=== PATIENT | female | born 1970 | race Caucasian/White ===

== ENCOUNTER 2020-02-17 19:15 | Inpatient (IN) | payer MEDICAID ==
[~2020-02-17] VITALS: Ht 172.7 cm; Wt 89.9 kg
[2020-02-17 20:01] LABS: GLUCOSE,POINT OF CARE 355 MG/DL (70-110)
[2020-02-17] MEDS ORDERED: ARIP10TA8 PO (20:01)
[2020-02-17] MEDS ORDERED: PROZ10 PO (20:01)
[2020-02-17 22:00] LABS: BASOPHILS % (AUTO) 0.3 % (0.0-2.0); EOSINOPHILS % (AUTO) 1.3 % (1.0-6.0); HEMATOCRIT 40.8 % (36-46); LYMPHOCYTES # (AUTO) 1.4 K/uL (1.0-4.8); LYMPHOCYTES % (AUTO) 17.8 % (22.0-44.0); MEAN CORPUSCULAR HEMOGLOBIN 25.4 pg (26.0-34.0); MEAN CORPUSCULAR HGB CONC 31.9 G/dL (31.0-37.0); MEAN CORPUSCULAR VOLUME 80 fL (80-100); MONOCYTES # (AUTO) 0.5 K/uL (0.1-1.0); MONOCYTES % (AUTO) 6.1 % (2.0-9.0); NEUTROPHILS # (AUTO) 5.9 K/uL (1.8-7.7); NEUTROPHILS % (AUTO) 74.5 % (40.0-70.0); PLATELET COUNT (AUTO) 234 K/uL (150-450); RED BLOOD CELL COUNT(AUTO) 5.13 MIL/uL (4.00-5.20); RED CELL DISTRIBUTION WIDTH 14.7 % (11.5-14.5)
[2020-02-17 22:01] LABS: AMPHET/METH SCREEN,URINE POSITIVE (NEGATIVE); BARBITURATE SCREEN, URINE NEGATIVE (NEGATIVE); BENZODIAZEPINES SCREEN,URINE NEGATIVE (NEGATIVE); CANNABINOID SCREEN,URINE NEGATIVE (NEGATIVE); COCAINE SCREEN,URINE NEGATIVE (NEGATIVE); METHADONE SCREEN, URINE NEGATIVE (NEGATIVE); OPIATE SCREEN,URINE NEGATIVE (NEGATIVE)
[2020-02-17 22:01] LABS: COVID AG,FIA SOURCE NASAL SWAB
[2020-02-17 22:10] LABS: PHENCYCLIDINE SCREEN,URINE NEGATIVE (NEGATIVE)
[2020-02-17 22:23] LABS: ALANINE AMINOTRANSFERASE 29 U/L (12-78); ALBUMIN 3.3 g/dL (3.4-5.0); ALKALINE PHOSPHATASE 84 U/L (46-116); ANION GAP 8 mmol/L (8-16); ASPARTATE AMINOTRANSFERASE 14 U/L (15-37); BILIRUBIN,TOTAL 0.3 mg/dL (0.1-1.0); CALCIUM, TOTAL 8.9 mg/dL (8.8-10.5); CARBON DIOXIDE 28 mmol/L (22-29); CHLORIDE 97 mmol/L (98-107); CREATININE 0.74 mg/dL (0.60-1.30); GLOMERULAR FILTR. RATE CALC > 60 mL/min (>60); GLUCOSE,RANDOM 319 mg/dL (70-110); SODIUM SERUM 133 mmol/L (136-145); TOTAL PROTEIN, SERUM 6.6 g/dL (6.4-8.2); UREA NITROGEN, BLOOD 10 mg/dL (7-18)
[2020-02-17 22:28] LABS: POTASSIUM 2.9 mmol/L (3.5-5.1)
[2020-02-17] MEDS ORDERED: POTASSIUM CHLORIDE 10% 40 MEQ/30 ML LIQUID UDCUP PO ONE ×2 (22:30→22:55)
[2020-02-17] MEDS ORDERED: INSULIN REGULAR, HUMAN 100 UNITS/ML SQ ONE (22:30)
[2020-02-17] MEDS ORDERED: ZOLPIDEM TARTRATE 10 MG TABLET PO PRN (23:00)
[2020-02-17] MEDS ORDERED: OLANZapine 5 MG RAPDIS TABLET PO PRN (23:00)
[2020-02-17] MEDS ORDERED: LORazepam 2 MG TABLET PO PRN (23:00)
[2020-02-18] MEDS ORDERED: ACETAMINOPHEN 325 MG TABLET PO PRN (07:45)
[2020-02-18] MEDS ORDERED: ALBUTEROL SULFATE HFA 90 MCG/PUFF 8 GM INHALER IH PRN (07:45)
[2020-02-18] MEDS ORDERED: MAG HYDROX/AL HYDROX/SIMETH ES 30 ML SUSPENSION UDCUP PO PRN (07:45)
[2020-02-18] MEDS ORDERED: MAGNESIUM HYDROXIDE SUSPENSION 30 ML UDCUP PO PRN (07:45)
[2020-02-18] MEDS ORDERED: LOPERAMIDE HCL 2 MG CAPSULE PO PRN (07:45)
[2020-02-18] MEDS ORDERED: DOCUSATE SODIUM 100 MG CAPSULE PO PRN (07:45)
[2020-02-18] MEDS ORDERED: BENZOCAINE/MENTHOL LOZENGE PO PRN (07:45)
[2020-02-18] MEDS ORDERED: PETROLATUM,WHITE 28 GM JELLY TP PRN (07:45)
[2020-02-18] MEDS ORDERED: CloNIDine HCL 0.1 MG TABLET PO PRN (07:45)
[2020-02-18] MEDS ORDERED: OMEPRAZOLE 20 MG CAPSULE PO PRN (07:45)
[2020-02-18] MEDS ORDERED: IBUPROFEN 600 MG TABLET PO PRN (07:45)
[2020-02-18] MEDS ORDERED: BACITRACIN 28 GM OINTMENT TP PRN (07:45)
[2020-02-18] MEDS ORDERED: GLUCAGON,HUMAN RECOMBINANT 1 MG VIAL IM PRN (07:45)
[2020-02-18] MEDS: LISINOPRIL 20 MG TABLET PO SCH (09:37)
[2020-02-18] MEDS: ATORVASTATIN CALCIUM 20 MG TABLET PO SCH (09:37)
[2020-02-18 09:42] VITALS: BP 116/75
[2020-02-18] MEDS: INSULIN LISPRO 100 UNITS/ML SQ PRN ×3 (11:12→21:10)
[2020-02-18 11:27] LABS: GLUCOMETER DEV NAME(LOC) BV2S.; GLUCOSE,POINT OF CARE 289 MG/DL (70-110)
[2020-02-18] MEDS: ONDANSETRON HCL 4 MG TABLET PO PRN (12:20)
[2020-02-18] MEDS ORDERED: INFLUENZA VIRUS VACCINE QVS 2020-21 (6MO+)/PF 60 MCG/0.5 ML SYRINGE IM ONE (13:15)
[2020-02-18 16:35] VITALS: BP 112/56
[2020-02-18 16:39] LABS: GLUCOMETER DEV NAME(LOC) BV2S.; GLUCOSE,POINT OF CARE 245 MG/DL (70-110)
[2020-02-18] MEDS ORDERED: HydrOXYzine PAMOATE 50 MG CAPSULE PO PRN ×2 (16:45)
[2020-02-18] MEDS ORDERED: GuaiFENesin/D-METHORPHAN [SUGAR-FREE] 200-20MG/10 ML SYRUP UDCUP PO PRN ×2 (16:45)
[2020-02-18] MEDS: MetFORMIN HCL 500 MG TABLET PO SCH (16:49)
[2020-02-18] MEDS ORDERED: THIAMINE 100 MG TABLET PO SCH (17:00)
[2020-02-18] MEDS: THIAMINE 100 MG TABLET PO SCH (17:15)
[2020-02-18 22:06] LABS: GLUCOMETER DEV NAME(LOC) BV2S.; GLUCOSE,POINT OF CARE 268 MG/DL (70-110)
[2020-02-19 06:10] LABS: GLUCOMETER DEV NAME(LOC) BV2S.; GLUCOSE,POINT OF CARE 297 MG/DL (70-110)
[2020-02-19 06:12] VITALS: BP 120/81
[2020-02-19] MEDS: MetFORMIN HCL 500 MG TABLET PO SCH ×2 (06:41→17:00)
[2020-02-19] MEDS: INSULIN LISPRO 100 UNITS/ML SQ PRN ×4 (06:43→20:30)
[2020-02-19 08:13] VITALS: BP 112/72
[2020-02-19 08:50] LABS: HEMOGLOBIN A1C 12.6 % (3.8-5.6)
[2020-02-19] MEDS ORDERED: MULTIVITAMINS WITH MINERALS, THERAPEUTIC TABLET PO SCH (09:00)
[2020-02-19] MEDS: FOLIC ACID 1 MG TABLET PO SCH (09:00)
[2020-02-19] MEDS: FLUoxetine HCL 20 MG CAPSULE PO SCH (09:00)
[2020-02-19] MEDS: NALTREXONE HCL 50 MG TABLET PO SCH (09:00)
[2020-02-19] MEDS: LISINOPRIL 20 MG TABLET PO SCH (09:00)
[2020-02-19] MEDS: ARIPiprazole 15 MG TABLET PO SCH (09:00)
[2020-02-19] MEDS: THIAMINE 100 MG TABLET PO SCH ×2 (09:00→17:00)
[2020-02-19] MEDS: ATORVASTATIN CALCIUM 20 MG TABLET PO SCH (09:00)
[2020-02-19] MEDS: NICOTINE 21 MG/24 HOUR PATCH TD SCH (09:00)
[2020-02-19] MEDS: MULTIVITAMINS WITH MINERALS, THERAPEUTIC TABLET PO SCH (09:00)
[2020-02-19] MEDS: OMEGA-3/DHA/EPA/FISH OIL 1,000 MG CAPSULE PO SCH (09:00)
[2020-02-19] MEDS ORDERED: FOLIC ACID 1 MG TABLET PO SCH (09:00)
[2020-02-19 09:12] LABS: CHOL/HDL RATIO 3.1 (3.9-5.7); FREE T4 (FREE THYROXINE) 1.35 ng/dL (0.76-1.46); THYROID STIMULATING HORMONE 1.44 uIU/mL (0.36-3.74)
[2020-02-19 09:17] LABS: POTASSIUM 2.9 mmol/L (3.5-5.1)
[2020-02-19] MEDS: POTASSIUM CHLORIDE 20 MEQ ER TABLET PO SCH ×3 (11:11→17:15)
[2020-02-19] MEDS ORDERED: LOPERAMIDE HCL 2 MG CAPSULE PO PRN (11:30)
[2020-02-19] MEDS ORDERED: ARIPiprazole ER SUSPENSION 400 MG PRE-FILLED DUAL CHAMBER SYRINGE IM ONE (14:45)
[2020-02-19 16:07] LABS: GLUCOMETER DEV NAME(LOC) BV2S.; GLUCOSE,POINT OF CARE 318 MG/DL (70-110)
[2020-02-19 16:58] LABS: GLUCOMETER DEV NAME(LOC) BV2S.; GLUCOSE,POINT OF CARE 248 MG/DL (70-110)
[2020-02-19 22:49] LABS: GLUCOMETER DEV NAME(LOC) BV2S.; GLUCOSE,POINT OF CARE 220 MG/DL (70-110)
[2020-02-20] MEDS: POTASSIUM CHLORIDE 20 MEQ ER TABLET PO SCH ×2 (00:26→05:55)
[2020-02-20] MEDS: ONDANSETRON HCL 4 MG TABLET PO PRN (00:26)
[2020-02-20 00:33] VITALS: BP 118/75
[2020-02-20 06:17] LABS: GLUCOMETER DEV NAME(LOC) BV2S.; GLUCOSE,POINT OF CARE 294 MG/DL (70-110)
[2020-02-20] MEDS: MetFORMIN HCL 500 MG TABLET PO SCH ×2 (06:53→16:56)
[2020-02-20] MEDS: INSULIN LISPRO 100 UNITS/ML SQ PRN ×4 (06:56→21:08)
[2020-02-20 08:12] VITALS: BP 112/68
[2020-02-20] MEDS: MULTIVITAMINS WITH MINERALS, THERAPEUTIC TABLET PO SCH (09:00)
[2020-02-20] MEDS: NALTREXONE HCL 50 MG TABLET PO SCH (09:00)
[2020-02-20] MEDS: FOLIC ACID 1 MG TABLET PO SCH (09:00)
[2020-02-20] MEDS: LISINOPRIL 20 MG TABLET PO SCH (09:00)
[2020-02-20] MEDS: NICOTINE 21 MG/24 HOUR PATCH TD SCH (09:00)
[2020-02-20] MEDS: THIAMINE 100 MG TABLET PO SCH ×2 (09:00→16:57)
[2020-02-20] MEDS: OMEGA-3/DHA/EPA/FISH OIL 1,000 MG CAPSULE PO SCH (09:00)
[2020-02-20] MEDS: FLUoxetine HCL 20 MG CAPSULE PO SCH (09:00)
[2020-02-20] MEDS: ARIPiprazole 15 MG TABLET PO SCH (09:00)
[2020-02-20] MEDS: ATORVASTATIN CALCIUM 20 MG TABLET PO SCH (10:21)
[2020-02-20 11:44] LABS: GLUCOMETER DEV NAME(LOC) BV2S.; GLUCOSE,POINT OF CARE 287 MG/DL (70-110)
[2020-02-20 16:21] VITALS: BP 112/67
[2020-02-20 16:58] LABS: GLUCOMETER DEV NAME(LOC) BV2S.; GLUCOSE,POINT OF CARE 279 MG/DL (70-110)
[2020-02-20 20:06] LABS: GLUCOMETER DEV NAME(LOC) BV2S.; GLUCOSE,POINT OF CARE 265 MG/DL (70-110)
[2020-02-21 00:54] VITALS: BP 121/72
[2020-02-21] MEDS: MetFORMIN HCL 500 MG TABLET PO SCH ×2 (06:15→16:41)
[2020-02-21] MEDS: INSULIN LISPRO 100 UNITS/ML SQ PRN ×4 (06:18→20:54)
[2020-02-21 06:27] LABS: GLUCOMETER DEV NAME(LOC) BV2S.; GLUCOSE,POINT OF CARE 275 MG/DL (70-110)
[2020-02-21 08:40] VITALS: BP 114/62
[2020-02-21] MEDS: NALTREXONE HCL 50 MG TABLET PO SCH (08:58)
[2020-02-21] MEDS: ARIPiprazole 15 MG TABLET PO SCH (08:58)
[2020-02-21] MEDS: LISINOPRIL 20 MG TABLET PO SCH (08:58)
[2020-02-21] MEDS: FOLIC ACID 1 MG TABLET PO SCH (08:58)
[2020-02-21] MEDS: MULTIVITAMINS WITH MINERALS, THERAPEUTIC TABLET PO SCH (08:58)
[2020-02-21] MEDS: OMEGA-3/DHA/EPA/FISH OIL 1,000 MG CAPSULE PO SCH (08:58)
[2020-02-21] MEDS: ATORVASTATIN CALCIUM 20 MG TABLET PO SCH (08:58)
[2020-02-21] MEDS: THIAMINE 100 MG TABLET PO SCH ×2 (08:59→16:19)
[2020-02-21] MEDS ORDERED: PARoxetine HCL 20 MG TABLET PO SCH (09:00)
[2020-02-21 11:32] LABS: GLUCOMETER DEV NAME(LOC) BV2S.; GLUCOSE,POINT OF CARE 269 MG/DL (70-110)
[2020-02-21 16:10] VITALS: BP 122/72
[2020-02-21 17:32] LABS: GLUCOMETER DEV NAME(LOC) BV2S.; GLUCOSE,POINT OF CARE 303 MG/DL (70-110)
[2020-02-21] MEDS: MIRTAZAPINE 15 MG TABLET PO SCH (20:46)
[2020-02-21 21:26] LABS: GLUCOMETER DEV NAME(LOC) BV2S.; GLUCOSE,POINT OF CARE 187 MG/DL (70-110)
[2020-02-22 06:07] VITALS: BP 119/64
[2020-02-22 06:22] LABS: GLUCOMETER DEV NAME(LOC) BV2S.; GLUCOSE,POINT OF CARE 280 MG/DL (70-110)
[2020-02-22] MEDS: INSULIN LISPRO 100 UNITS/ML SQ PRN ×4 (06:55→20:19)
[2020-02-22] MEDS: MetFORMIN HCL 500 MG TABLET PO SCH ×2 (06:55→16:46)
[2020-02-22] MEDS: MULTIVITAMINS WITH MINERALS, THERAPEUTIC TABLET PO SCH (08:36)
[2020-02-22] MEDS: OMEGA-3/DHA/EPA/FISH OIL 1,000 MG CAPSULE PO SCH (08:36)
[2020-02-22] MEDS: THIAMINE 100 MG TABLET PO SCH ×2 (08:36→16:42)
[2020-02-22] MEDS: FOLIC ACID 1 MG TABLET PO SCH (08:37)
[2020-02-22] MEDS: LISINOPRIL 20 MG TABLET PO SCH (08:37)
[2020-02-22] MEDS: ATORVASTATIN CALCIUM 20 MG TABLET PO SCH (08:37)
[2020-02-22] MEDS: ARIPiprazole 15 MG TABLET PO SCH (08:37)
[2020-02-22] MEDS: NICOTINE 21 MG/24 HOUR PATCH TD SCH (08:37)
[2020-02-22] MEDS: NALTREXONE HCL 50 MG TABLET PO SCH (08:37)
[2020-02-22 09:50] VITALS: BP 106/69
[2020-02-22 13:46] LABS: GLUCOMETER DEV NAME(LOC) BV2S.; GLUCOSE,POINT OF CARE 300 MG/DL (70-110)
[2020-02-22 16:19] VITALS: BP 121/60
[2020-02-22 17:06] LABS: GLUCOMETER DEV NAME(LOC) BV2S.; GLUCOSE,POINT OF CARE 282 MG/DL (70-110)
[2020-02-22] MEDS: MIRTAZAPINE 15 MG TABLET PO SCH (20:14)
[2020-02-22 22:15] LABS: GLUCOMETER DEV NAME(LOC) BV2S.; GLUCOSE,POINT OF CARE 179 MG/DL (70-110)
[2020-02-23 02:06] VITALS: BP 105/52
[2020-02-23 06:15] LABS: GLUCOMETER DEV NAME(LOC) BV2S.; GLUCOSE,POINT OF CARE 249 MG/DL (70-110)
[2020-02-23] MEDS: MetFORMIN HCL 500 MG TABLET PO SCH ×2 (06:52→16:44)
[2020-02-23] MEDS: INSULIN LISPRO 100 UNITS/ML SQ PRN ×4 (06:53→20:35)
[2020-02-23 08:17] VITALS: BP 120/77
[2020-02-23] MEDS: ATORVASTATIN CALCIUM 20 MG TABLET PO SCH (09:32)
[2020-02-23] MEDS: LISINOPRIL 20 MG TABLET PO SCH (09:32)
[2020-02-23] MEDS: ARIPiprazole 15 MG TABLET PO SCH (09:32)
[2020-02-23] MEDS: FOLIC ACID 1 MG TABLET PO SCH (09:32)
[2020-02-23] MEDS: MULTIVITAMINS WITH MINERALS, THERAPEUTIC TABLET PO SCH (09:32)
[2020-02-23] MEDS: OMEGA-3/DHA/EPA/FISH OIL 1,000 MG CAPSULE PO SCH (09:32)
[2020-02-23] MEDS: THIAMINE 100 MG TABLET PO SCH ×2 (09:32→16:44)
[2020-02-23] MEDS: NALTREXONE HCL 50 MG TABLET PO SCH (09:33)
[2020-02-23] MEDS: NICOTINE 21 MG/24 HOUR PATCH TD SCH (09:33)
[2020-02-23 11:49] LABS: GLUCOMETER DEV NAME(LOC) BV2S.; GLUCOSE,POINT OF CARE 313 MG/DL (70-110)
[2020-02-23 16:11] VITALS: BP 116/63
[2020-02-23 17:34] LABS: GLUCOMETER DEV NAME(LOC) BV2S.; GLUCOSE,POINT OF CARE 263 MG/DL (70-110)
[2020-02-23] MEDS: MIRTAZAPINE 15 MG TABLET PO SCH (20:22)
[2020-02-23 20:32] LABS: GLUCOMETER DEV NAME(LOC) BV2S.; GLUCOSE,POINT OF CARE 248 MG/DL (70-110)
[2020-02-24 06:05] LABS: GLUCOMETER DEV NAME(LOC) BV2S.; GLUCOSE,POINT OF CARE 257 MG/DL (70-110)
[2020-02-24 06:10] VITALS: BP 120/70
[2020-02-24] MEDS: MetFORMIN HCL 500 MG TABLET PO SCH (06:39)
[2020-02-24] MEDS: INSULIN LISPRO 100 UNITS/ML SQ PRN ×2 (06:40→11:30)
[2020-02-24 07:43] VITALS: BP 118/70
[2020-02-24] MEDS: OMEGA-3/DHA/EPA/FISH OIL 1,000 MG CAPSULE PO SCH (08:33)
[2020-02-24] MEDS: ATORVASTATIN CALCIUM 20 MG TABLET PO SCH (08:33)
[2020-02-24] MEDS: FOLIC ACID 1 MG TABLET PO SCH (08:34)
[2020-02-24] MEDS: ARIPiprazole 15 MG TABLET PO SCH (08:34)
[2020-02-24] MEDS: NALTREXONE HCL 50 MG TABLET PO SCH (08:34)
[2020-02-24] MEDS: LISINOPRIL 20 MG TABLET PO SCH (08:34)
[2020-02-24] MEDS: THIAMINE 100 MG TABLET PO SCH (08:34)
[2020-02-24] MEDS: MULTIVITAMINS WITH MINERALS, THERAPEUTIC TABLET PO SCH (08:34)
[2020-02-24] MEDS ORDERED: INSULIN GLARGINE,HUM.REC.ANLOG 100 UNITS/ML SQ SCH (09:00)
[2020-02-24] MEDS: NICOTINE 21 MG/24 HOUR PATCH TD SCH (09:11)
[2020-02-24 09:41] LABS: GLUCOMETER DEV NAME(LOC) BV2S.; GLUCOSE,POINT OF CARE 244 MG/DL (70-110)
[2020-02-24 11:43] LABS: GLUCOMETER DEV NAME(LOC) BV2S.; GLUCOSE,POINT OF CARE 294 MG/DL (70-110)
[2020-02-24] MEDS ORDERED: METF-960 PO (13:12)
[2020-02-24] MEDS ORDERED: LISI-662 PO (13:12)
[2020-02-24] MEDS ORDERED: INSLAN SQ (13:12)
[2020-02-24] MEDS ORDERED: ATOR20TA86 PO (13:12)
[2020-02-24] MEDS ORDERED: ARIP400S3 IM (13:32)
[2020-02-24] MEDS ORDERED: ARIP15TA2 PO (13:32)
[2020-02-24] MEDS ORDERED: MIRT-89 PO (13:32)
[2020-02-24] MEDS ORDERED: NALT50TA PO (13:32)
[2020-02-24] MEDS ORDERED: OMEG-135 PO (13:32)
[2020-03-18] MEDS ORDERED: ARIPiprazole ER SUSPENSION 400 MG PRE-FILLED DUAL CHAMBER SYRINGE IM SCH (09:00)
== END 2020-02-24 14:44 | disposition home or self-care (01) | DRG 750 ==
LOC: EMS 19:15 → UNDOADMIN 22:53 → B2S 22:53
PROVIDERS: ADMIT Psychiatry & Neurology Psychiatry; ATTEND Psychiatry & Neurology Psychiatry
DX: F25.9 Schizoaffective disorder, unspecified (principal); R45.851 Suicidal ideations; J44.9 Chronic obstructive pulmonary disease, unspecified; I10 Essential (primary) hypertension; Z79.899 Other long term (current) drug therapy; E11.65 Type 2 diabetes mellitus with hyperglycemia; E78.5 Hyperlipidemia, unspecified; E87.6 Hypokalemia; F15.10 Other stimulant abuse, uncomplicated; Z91.14 Patient's other noncompliance with medication regimen; Z91.19 Patient's noncompliance with other medical treatment and regimen; K59.00 Constipation, unspecified; Z23 Encounter for immunization; E78.00 Pure hypercholesterolemia, unspecified; F41.9 Anxiety disorder, unspecified
CPT/HCPCS: 83036; 84132; 84439; 84443; 87426; 90686; G0480; J0401; J1815; Q0162

== ENCOUNTER 2020-03-17 11:16 | Inpatient (IN) | payer MEDICAID ==
[~2020-03-17] VITALS: Ht 172.7 cm; Wt 85.8 kg
[~2020-03-17 11:16] MED LIST: ARIP15TA2 PO; ARIP400S3 IM; ATOR20TA86 PO; INSLAN SQ; LISI-662 PO; METF-960 PO; MIRT-89 PO; NALT50TA PO; OMEG-135 PO
[2020-03-17 13:17] LABS: COVID AG,FIA SOURCE NASOPHARYNGEAL
[2020-03-17 13:27] LABS: BASOPHILS % (AUTO) 0.3 % (0.0-2.0); EOSINOPHILS % (AUTO) 1.1 % (1.0-6.0); HEMATOCRIT 44.8 % (36-46); HEMOGLOBIN 14.4 g/dL (12.0-16.0); MEAN CORPUSCULAR HEMOGLOBIN 25.9 pg (26.0-34.0); MEAN CORPUSCULAR HGB CONC 32.3 G/dL (31.0-37.0); MEAN CORPUSCULAR VOLUME 80 fL (80-100); MONOCYTES # (AUTO) 0.6 K/uL (0.1-1.0); MONOCYTES % (AUTO) 4.4 % (2.0-9.0); NEUTROPHILS # (AUTO) 8.9 K/uL (1.8-7.7); NEUTROPHILS % (AUTO) 70.2 % (40.0-70.0); PLATELET COUNT (AUTO) 248 K/uL (150-450); RED BLOOD CELL COUNT(AUTO) 5.59 MIL/uL (4.00-5.20); RED CELL DISTRIBUTION WIDTH 15.5 % (11.5-14.5)
[2020-03-17 13:30] LABS: ANION GAP 10 mmol/L (8-16); CALCIUM, TOTAL 9.8 mg/dL (8.8-10.5); CARBON DIOXIDE 26 mmol/L (22-29); CHLORIDE 99 mmol/L (98-107); CREATININE 0.57 mg/dL (0.60-1.30); GLOMERULAR FILTR. RATE CALC > 60 mL/min (>60); GLUCOSE,RANDOM 345 mg/dL (70-110); POTASSIUM 3.8 mmol/L (3.5-5.1); SODIUM SERUM 135 mmol/L (136-145); UREA NITROGEN, BLOOD 8 mg/dL (7-18)
[2020-03-17 13:36] LABS: ALANINE AMINOTRANSFERASE 52 U/L (12-78); ALBUMIN 3.9 g/dL (3.4-5.0); ALKALINE PHOSPHATASE 109 U/L (46-116); ASPARTATE AMINOTRANSFERASE 26 U/L (15-37); BILIRUBIN,TOTAL 0.5 mg/dL (0.1-1.0); TOTAL PROTEIN, SERUM 7.9 g/dL (6.4-8.2)
[2020-03-17 14:39] LABS: AMPHET/METH SCREEN,URINE POSITIVE (NEGATIVE); BARBITURATE SCREEN, URINE NEGATIVE (NEGATIVE); BENZODIAZEPINES SCREEN,URINE NEGATIVE (NEGATIVE); CANNABINOID SCREEN,URINE NEGATIVE (NEGATIVE); COCAINE SCREEN,URINE NEGATIVE (NEGATIVE); METHADONE SCREEN, URINE NEGATIVE (NEGATIVE); OPIATE SCREEN,URINE NEGATIVE (NEGATIVE)
[2020-03-17 14:41] LABS: PHENCYCLIDINE SCREEN,URINE NEGATIVE (NEGATIVE)
[2020-03-17] MEDS ORDERED: QUEtiapine FUMARATE 100 MG TABLET PO PRN (15:45)
[2020-03-17] MEDS ORDERED: LOPERAMIDE HCL 2 MG CAPSULE PO PRN (15:45)
[2020-03-17] MEDS ORDERED: HydrOXYzine PAMOATE 50 MG CAPSULE PO PRN (15:45)
[2020-03-17] MEDS ORDERED: PROMETHAZINE HCL 25 MG TABLET PO PRN (15:45)
[2020-03-17] MEDS ORDERED: ARIPiprazole ER SUSPENSION 400 MG PRE-FILLED DUAL CHAMBER SYRINGE IM ONE (15:45)
[2020-03-17] MEDS ORDERED: MAG HYDROX/AL HYDROX/SIMETH ES 30 ML SUSPENSION UDCUP PO PRN (15:45)
[2020-03-17] MEDS ORDERED: LORazepam 2 MG TABLET PO PRN (15:45)
[2020-03-17] MEDS ORDERED: GuaiFENesin/D-METHORPHAN [SUGAR-FREE] 200-20MG/10 ML SYRUP UDCUP PO PRN (15:45)
[2020-03-17] MEDS ORDERED: ACETAMINOPHEN 325 MG TABLET PO PRN (15:45)
[2020-03-17] MEDS ORDERED: MAGNESIUM HYDROXIDE SUSPENSION 30 ML UDCUP PO PRN (15:45)
[2020-03-17] MEDS ORDERED: ZOLPIDEM TARTRATE 10 MG TABLET PO PRN (15:45)
[2020-03-17 19:26] LABS: GLUCOSE,POINT OF CARE 353 MG/DL (70-110)
[2020-03-17] MEDS ORDERED: GLUCAGON,HUMAN RECOMBINANT 1 MG VIAL IM PRN (19:45)
[2020-03-17] MEDS: INSULIN LISPRO 100 UNITS/ML SQ PRN (19:48)
[2020-03-17 20:51] LABS: GLUCOSE,POINT OF CARE 309 MG/DL (70-110)
[2020-03-17] MEDS ORDERED: MIRTAZAPINE 15 MG TABLET PO SCH (21:00)
[2020-03-17 21:19] VITALS: BP 110/79
[2020-03-17 21:41] LABS: GLUCOMETER DEV NAME(LOC) BV2S.; GLUCOSE,POINT OF CARE 207 MG/DL (70-110)
[2020-03-17] MEDS: THIAMINE 100 MG TABLET PO SCH (21:41)
[2020-03-18 01:08] VITALS: BP 103/59
[2020-03-18] MEDS ORDERED: INFLUENZA VIRUS VACCINE QVS 2020-21 (6MO+)/PF 60 MCG/0.5 ML SYRINGE IM ONE (01:30)
[2020-03-18 07:04] LABS: GLUCOMETER DEV NAME(LOC) BV2S.; GLUCOSE,POINT OF CARE 263 MG/DL (70-110)
[2020-03-18] MEDS: INSULIN LISPRO 100 UNITS/ML SQ PRN ×4 (07:15→20:25)
[2020-03-18] MEDS ORDERED: PNEUMOCOCCAL VACCINE POLYVALENT 0.5 ML VIAL [PPSV23] IM ONE (07:45)
[2020-03-18 08:10] VITALS: BP 126/71
[2020-03-18] MEDS: OMEGA-3/DHA/EPA/FISH OIL 1,000 MG CAPSULE PO SCH (08:53)
[2020-03-18] MEDS: MULTIVITAMINS WITH MINERALS, THERAPEUTIC TABLET PO SCH (08:53)
[2020-03-18] MEDS: NALTREXONE HCL 50 MG TABLET PO SCH (08:53)
[2020-03-18] MEDS: FOLIC ACID 1 MG TABLET PO SCH (08:54)
[2020-03-18] MEDS: THIAMINE 100 MG TABLET PO SCH ×2 (08:54→17:00)
[2020-03-18] MEDS ORDERED: PARoxetine HCL 10 MG TABLET PO SCH (09:00)
[2020-03-18 09:02] LABS: CHOL/HDL RATIO 3.3 (3.9-5.7); FREE T4 (FREE THYROXINE) 1.2 ng/dL (0.76-1.46); THYROID STIMULATING HORMONE 0.55 uIU/mL (0.36-3.74)
[2020-03-18 10:18] LABS: HEMOGLOBIN A1C 12.5 % (3.8-5.6)
[2020-03-18 11:15] LABS: GLUCOMETER DEV NAME(LOC) BV2S.; GLUCOSE,POINT OF CARE 375 MG/DL (70-110)
[2020-03-18 16:07] VITALS: BP 102/66
[2020-03-18 16:48] LABS: GLUCOMETER DEV NAME(LOC) BV2S.; GLUCOSE,POINT OF CARE 277 MG/DL (70-110)
[2020-03-18] MEDS: MetFORMIN HCL 500 MG TABLET PO SCH (17:00)
[2020-03-18] MEDS: MIRTAZAPINE 15 MG TABLET PO SCH (20:17)
[2020-03-18 20:51] LABS: GLUCOMETER DEV NAME(LOC) BV2S.; GLUCOSE,POINT OF CARE 307 MG/DL (70-110)
[2020-03-18] MEDS: INSULIN GLARGINE,HUM.REC.ANLOG 100 UNITS/ML SQ SCH (21:40)
[2020-03-19 00:28] VITALS: BP 84/40
[2020-03-19 00:33] VITALS: BP 98/62
[2020-03-19] MEDS: INSULIN LISPRO 100 UNITS/ML SQ PRN ×4 (06:50→20:28)
[2020-03-19] MEDS: MetFORMIN HCL 500 MG TABLET PO SCH ×2 (07:10→16:59)
[2020-03-19 07:30] LABS: GLUCOMETER DEV NAME(LOC) BV2S.; GLUCOSE,POINT OF CARE 320 MG/DL (70-110)
[2020-03-19 08:16] VITALS: BP 122/60
[2020-03-19] MEDS: ATORVASTATIN CALCIUM 20 MG TABLET PO SCH (08:17)
[2020-03-19] MEDS: OMEGA-3/DHA/EPA/FISH OIL 1,000 MG CAPSULE PO SCH (08:17)
[2020-03-19] MEDS: NALTREXONE HCL 50 MG TABLET PO SCH (08:17)
[2020-03-19] MEDS: FOLIC ACID 1 MG TABLET PO SCH (08:17)
[2020-03-19] MEDS: MULTIVITAMINS WITH MINERALS, THERAPEUTIC TABLET PO SCH (08:17)
[2020-03-19] MEDS: THIAMINE 100 MG TABLET PO SCH ×2 (08:17→16:59)
[2020-03-19] MEDS: INSULIN GLARGINE,HUM.REC.ANLOG 100 UNITS/ML SQ SCH ×2 (08:22→20:28)
[2020-03-19] MEDS ORDERED: OMEGA-3/DHA/EPA/FISH OIL 1,000 MG CAPSULE PO SCH (09:00)
[2020-03-19 11:05] LABS: GLUCOMETER DEV NAME(LOC) BV2S.; GLUCOSE,POINT OF CARE 288 MG/DL (70-110)
[2020-03-19] MEDS ORDERED: NALT50TA PO (15:08)
[2020-03-19] MEDS ORDERED: OMEG-135 PO (15:08)
[2020-03-19] MEDS ORDERED: MIRT-89 PO (15:08)
[2020-03-19] MEDS ORDERED: ARIP400S3 IM (15:08)
[2020-03-19 16:31] VITALS: BP 121/61
[2020-03-19 17:14] LABS: GLUCOMETER DEV NAME(LOC) BV2S.; GLUCOSE,POINT OF CARE 294 MG/DL (70-110)
[2020-03-19] MEDS: MIRTAZAPINE 15 MG TABLET PO SCH (20:24)
[2020-03-19 20:50] LABS: GLUCOMETER DEV NAME(LOC) BV2S.; GLUCOSE,POINT OF CARE 230 MG/DL (70-110)
[2020-03-20 06:13] VITALS: BP 125/74
[2020-03-20 06:16] LABS: GLUCOMETER DEV NAME(LOC) BV2S.; GLUCOSE,POINT OF CARE 240 MG/DL (70-110)
[2020-03-20] MEDS: MetFORMIN HCL 500 MG TABLET PO SCH (06:47)
[2020-03-20] MEDS: INSULIN LISPRO 100 UNITS/ML SQ PRN ×2 (06:48→10:59)
[2020-03-20 08:03] LABS: BASOPHILS % (AUTO) 0.3 % (0.0-2.0); EOSINOPHILS % (AUTO) 3.1 % (1.0-6.0); HEMATOCRIT 39.9 % (36-46); HEMOGLOBIN 13.1 g/dL (12.0-16.0); LYMPHOCYTES # (AUTO) 2.4 K/uL (1.0-4.8); LYMPHOCYTES % (AUTO) 25.5 % (22.0-44.0); MEAN CORPUSCULAR HEMOGLOBIN 26.2 pg (26.0-34.0); MEAN CORPUSCULAR HGB CONC 32.8 G/dL (31.0-37.0); MEAN CORPUSCULAR VOLUME 80 fL (80-100); MONOCYTES # (AUTO) 0.6 K/uL (0.1-1.0); MONOCYTES % (AUTO) 6.2 % (2.0-9.0); NEUTROPHILS # (AUTO) 6.1 K/uL (1.8-7.7); NEUTROPHILS % (AUTO) 64.9 % (40.0-70.0); PLATELET COUNT (AUTO) 221 K/uL (150-450); RED BLOOD CELL COUNT(AUTO) 4.98 MIL/uL (4.00-5.20); RED CELL DISTRIBUTION WIDTH 15.9 % (11.5-14.5)
[2020-03-20] MEDS: NALTREXONE HCL 50 MG TABLET PO SCH (08:15)
[2020-03-20] MEDS: THIAMINE 100 MG TABLET PO SCH (08:15)
[2020-03-20] MEDS: MULTIVITAMINS WITH MINERALS, THERAPEUTIC TABLET PO SCH (08:15)
[2020-03-20] MEDS: ATORVASTATIN CALCIUM 20 MG TABLET PO SCH (08:15)
[2020-03-20] MEDS: OMEGA-3/DHA/EPA/FISH OIL 1,000 MG CAPSULE PO SCH (08:15)
[2020-03-20] MEDS: FOLIC ACID 1 MG TABLET PO SCH (08:15)
[2020-03-20 08:16] LABS: ALANINE AMINOTRANSFERASE 33 U/L (12-78); ALBUMIN 2.9 g/dL (3.4-5.0); ALKALINE PHOSPHATASE 80 U/L (46-116); ANION GAP 8 mmol/L (8-16); ASPARTATE AMINOTRANSFERASE 16 U/L (15-37); BILIRUBIN,TOTAL 0.3 mg/dL (0.1-1.0); CALCIUM, TOTAL 8.9 mg/dL (8.8-10.5); CARBON DIOXIDE 29 mmol/L (22-29); CHLORIDE 107 mmol/L (98-107); CREATININE 0.43 mg/dL (0.60-1.30); GLOMERULAR FILTR. RATE CALC > 60 mL/min (>60); GLUCOSE,RANDOM 242 mg/dL (70-110); PHOSPHORUS 3.9 mg/dL (2.5-4.9); POTASSIUM 3.9 mmol/L (3.5-5.1); SODIUM SERUM 144 mmol/L (136-145); TOTAL PROTEIN, SERUM 6.3 g/dL (6.4-8.2); UREA NITROGEN, BLOOD 15 mg/dL (7-18)
[2020-03-20] MEDS: INSULIN GLARGINE,HUM.REC.ANLOG 100 UNITS/ML SQ SCH (08:30)
[2020-03-20] MEDS ORDERED: MUPIROCIN CALCIUM 2% 22 GM OINTMENT NASAL SCH (09:00)
[2020-03-20 09:03] VITALS: BP 120/70
[2020-03-20 11:08] LABS: GLUCOMETER DEV NAME(LOC) BV2S.; GLUCOSE,POINT OF CARE 207 MG/DL (70-110)
[2020-04-14] MEDS ORDERED: ARIPiprazole ER SUSPENSION 400 MG PRE-FILLED DUAL CHAMBER SYRINGE IM SCH (09:00)
== END 2020-03-20 11:30 | disposition home or self-care (01) | DRG 750 ==
LOC: EMS 11:20 → B2S 15:37
PROVIDERS: ADMIT Psychiatry & Neurology Psychiatry; ATTEND Psychiatry & Neurology Psychiatry
DX: F25.9 Schizoaffective disorder, unspecified (principal); R45.851 Suicidal ideations; Z91.19 Patient's noncompliance with other medical treatment and regimen; J44.9 Chronic obstructive pulmonary disease, unspecified; Z72.0 Tobacco use; E66.9 Obesity, unspecified; Z68.28 Body mass index [BMI] 28.0-28.9, adult; Z91.14 Patient's other noncompliance with medication regimen; I10 Essential (primary) hypertension; E78.5 Hyperlipidemia, unspecified; E11.65 Type 2 diabetes mellitus with hyperglycemia; F19.10 Other psychoactive substance abuse, uncomplicated; F41.9 Anxiety disorder, unspecified; K59.00 Constipation, unspecified; G47.00 Insomnia, unspecified; E78.00 Pure hypercholesterolemia, unspecified; F32.9 Major depressive disorder, single episode, unspecified; F15.10 Other stimulant abuse, uncomplicated; Z20.828 Contact with and (suspected) exposure to other viral communicable diseases; Z28.21 Immunization not carried out because of patient refusal
CPT/HCPCS: 83036; 83735; 84100; 84439; 84443; 86592; 87081; 87147; 87426; 90686; 90732; G0480; J0401; J1815

== ENCOUNTER 2021-07-10 11:22 | Inpatient (IN) | payer MEDICAID ==
[~2021-07-10] VITALS: Ht 172.7 cm; Wt 80.7 kg
[~2021-07-10 11:22] MED LIST changes: -ARIP15TA2 PO; +ARIP15TA27 PO; -INSLAN SQ; -LISI-662 PO; +LISI-894 PO; +METF-1211 PO; -METF-960 PO; +OMEG-108 PO; -OMEG-135 PO
[2021-07-10] MEDS ORDERED: HALOPERIDOL 5 MG TABLET PO PRN (14:30)
[2021-07-10 14:35] VITALS: BP 132/72
[2021-07-10 14:47] VITALS: BP 132/72
[2021-07-10] MEDS ORDERED: PNEUMOCOCCAL VACCINE POLYVALENT 0.5 ML VIAL [PPSV23] IM. ONE (15:30)
[2021-07-10 16:42] LABS: GLUCOMETER DEV NAME(LOC) 3EX.; GLUCOSE,POINT OF CARE 227 MG/DL (70-110)
[2021-07-10] MEDS ORDERED: DEXTROSE 50%-WATER 25 GM/50 ML SYRINGE IVP PRN (17:00)
[2021-07-10] MEDS: INSULIN LISPRO 100 UNITS/ML SQ PRN ×2 (17:00→21:35)
[2021-07-10] MEDS: MetFORMIN HCL 500 MG TABLET PO SCH (18:01)
[2021-07-10 18:07] VITALS: BP 121/76
[2021-07-10] MEDS: PENICILLIN V POTASSIUM 500 MG TABLET PO SCH (20:45)
[2021-07-10 21:11] LABS: GLUCOMETER DEV NAME(LOC) 3EX.; GLUCOSE,POINT OF CARE 298 MG/DL (70-110)
[2021-07-11 00:59] VITALS: BP 127/70
[2021-07-11] MEDS: PENICILLIN V POTASSIUM 500 MG TABLET PO SCH ×4 (00:59→23:37)
[2021-07-11 06:36] LABS: GLUCOMETER DEV NAME(LOC) 3EX.; GLUCOSE,POINT OF CARE 259 MG/DL (70-110)
[2021-07-11] MEDS: MetFORMIN HCL 500 MG TABLET PO SCH ×2 (06:40→17:25)
[2021-07-11] MEDS: INSULIN LISPRO 100 UNITS/ML SQ PRN ×4 (06:43→21:19)
[2021-07-11] MEDS ORDERED: OLAN5TAB77 PO (10:45)
[2021-07-11] MEDS: OLANZapine 5 MG TABLET PO SCH ×2 (11:03→21:07)
[2021-07-11] MEDS: FLUoxetine HCL 20 MG CAPSULE PO SCH (11:04)
[2021-07-11 11:17] VITALS: BP 118/76
[2021-07-11 12:01] LABS: GLUCOMETER DEV NAME(LOC) 3EX.; GLUCOSE,POINT OF CARE 297 MG/DL (70-110)
[2021-07-11] MEDS ORDERED: NICOTINE 14 MG/24 HOUR PATCH TD PRN (15:45)
[2021-07-11] MEDS ORDERED: CloNIDine HCL 0.1 MG TABLET PO PRN (15:45)
[2021-07-11] MEDS ORDERED: MAGNESIUM HYDROXIDE SUSPENSION 30 ML UDCUP PO PRN (15:45)
[2021-07-11] MEDS ORDERED: ONDANSETRON HCL 4 MG TABLET PO PRN (15:45)
[2021-07-11] MEDS ORDERED: IBUPROFEN 400 MG TABLET PO PRN (15:45)
[2021-07-11] MEDS ORDERED: ALBUTEROL SULFATE HFA 90 MCG/PUFF 8 GM INHALER IH PRN (15:45)
[2021-07-11] MEDS ORDERED: ACETAMINOPHEN 325 MG TABLET PO PRN (15:45)
[2021-07-11] MEDS ORDERED: PETROLATUM,WHITE 28 GM JELLY TP PRN (15:45)
[2021-07-11] MEDS ORDERED: MAG HYDROX/AL HYDROX/SIMETH ES 30 ML SUSPENSION UDCUP PO PRN (15:45)
[2021-07-11] MEDS ORDERED: DOCUSATE SODIUM 100 MG CAPSULE PO PRN (15:45)
[2021-07-11] MEDS ORDERED: LOPERAMIDE HCL 2 MG CAPSULE PO PRN (15:45)
[2021-07-11] MEDS ORDERED: GuaiFENesin/D-METHORPHAN [SUGAR-FREE] 200-20MG/10 ML SYRUP UDCUP PO PRN (15:45)
[2021-07-11 16:14] VITALS: BP 113/77
[2021-07-11 17:07] LABS: GLUCOMETER DEV NAME(LOC) 3EX.; GLUCOSE,POINT OF CARE 316 MG/DL (70-110)
[2021-07-11 21:26] LABS: GLUCOMETER DEV NAME(LOC) 3EX.; GLUCOSE,POINT OF CARE 276 MG/DL (70-110)
[2021-07-12 05:31] LABS: GLUCOMETER DEV NAME(LOC) 3EX.; GLUCOSE,POINT OF CARE 282 MG/DL (70-110)
[2021-07-12] MEDS: MetFORMIN HCL 500 MG TABLET PO SCH ×2 (06:39→17:12)
[2021-07-12] MEDS: INSULIN LISPRO 100 UNITS/ML SQ PRN ×4 (06:39→20:50)
[2021-07-12] MEDS: PENICILLIN V POTASSIUM 500 MG TABLET PO SCH ×2 (08:37→16:27)
[2021-07-12] MEDS: OMEGA-3/DHA/EPA/FISH OIL 1,000 MG CAPSULE PO SCH (08:37)
[2021-07-12] MEDS: FLUoxetine HCL 20 MG CAPSULE PO SCH (08:38)
[2021-07-12] MEDS: OLANZapine 5 MG TABLET PO SCH ×2 (08:38→20:45)
[2021-07-12] MEDS: ATORVASTATIN CALCIUM 20 MG TABLET PO SCH (08:40)
[2021-07-12 08:55] VITALS: BP 100/66
[2021-07-12 11:51] LABS: GLUCOMETER DEV NAME(LOC) 3EX.; GLUCOSE,POINT OF CARE 307 MG/DL (70-110)
[2021-07-12 16:18] VITALS: BP 117/72
[2021-07-12 16:26] LABS: GLUCOMETER DEV NAME(LOC) 3EX.; GLUCOSE,POINT OF CARE 287 MG/DL (70-110)
[2021-07-12 20:21] LABS: GLUCOMETER DEV NAME(LOC) 3EX.; GLUCOSE,POINT OF CARE 256 MG/DL (70-110)
[2021-07-13] MEDS: PENICILLIN V POTASSIUM 500 MG TABLET PO SCH ×3 (00:04→17:08)
[2021-07-13 05:37] LABS: GLUCOMETER DEV NAME(LOC) 3EX.; GLUCOSE,POINT OF CARE 296 MG/DL (70-110)
[2021-07-13] MEDS: MetFORMIN HCL 500 MG TABLET PO SCH ×2 (06:51→17:08)
[2021-07-13] MEDS: INSULIN LISPRO 100 UNITS/ML SQ PRN ×4 (07:03→20:48)
[2021-07-13] MEDS: FLUoxetine HCL 20 MG CAPSULE PO SCH (09:04)
[2021-07-13] MEDS: ATORVASTATIN CALCIUM 20 MG TABLET PO SCH (09:04)
[2021-07-13] MEDS: OLANZapine 5 MG TABLET PO SCH ×2 (09:04→20:47)
[2021-07-13] MEDS: OMEGA-3/DHA/EPA/FISH OIL 1,000 MG CAPSULE PO SCH (09:04)
[2021-07-13 11:36] LABS: GLUCOMETER DEV NAME(LOC) 3EX.; GLUCOSE,POINT OF CARE 350 MG/DL (70-110)
[2021-07-13 16:21] LABS: GLUCOMETER DEV NAME(LOC) 3EX.; GLUCOSE,POINT OF CARE 296 MG/DL (70-110)
[2021-07-13 16:30] VITALS: BP 99/72
[2021-07-13] MEDS: LORazepam 2 MG TABLET PO PRN (17:09)
[2021-07-13 20:26] LABS: GLUCOMETER DEV NAME(LOC) 3EX.; GLUCOSE,POINT OF CARE 223 MG/DL (70-110)
[2021-07-14 05:57] LABS: GLUCOMETER DEV NAME(LOC) 3EX.; GLUCOSE,POINT OF CARE 282 MG/DL (70-110)
[2021-07-14] MEDS: MetFORMIN HCL 500 MG TABLET PO SCH ×2 (06:35→17:00)
[2021-07-14] MEDS: INSULIN LISPRO 100 UNITS/ML SQ PRN ×4 (06:41→21:33)
[2021-07-14 08:00] VITALS: BP 112/69
[2021-07-14] MEDS: OLANZapine 5 MG TABLET PO SCH ×2 (08:34→20:30)
[2021-07-14] MEDS: PENICILLIN V POTASSIUM 500 MG TABLET PO SCH ×3 (08:34→16:30)
[2021-07-14] MEDS: FLUoxetine HCL 20 MG CAPSULE PO SCH (08:34)
[2021-07-14] MEDS: OMEGA-3/DHA/EPA/FISH OIL 1,000 MG CAPSULE PO SCH (08:34)
[2021-07-14] MEDS: ATORVASTATIN CALCIUM 20 MG TABLET PO SCH (08:34)
[2021-07-14 09:19] LABS: COVID AG,FIA SOURCE NASOPHARYNGEAL
[2021-07-14 11:41] LABS: GLUCOMETER DEV NAME(LOC) 3EX.; GLUCOSE,POINT OF CARE 223 MG/DL (70-110)
[2021-07-14 16:41] LABS: GLUCOMETER DEV NAME(LOC) 3EX.; GLUCOSE,POINT OF CARE 280 MG/DL (70-110)
[2021-07-14 16:53] VITALS: BP 101/77
[2021-07-14] MEDS: LORazepam 2 MG TABLET PO PRN (17:00)
[2021-07-14 20:26] LABS: GLUCOMETER DEV NAME(LOC) 3EX.; GLUCOSE,POINT OF CARE 253 MG/DL (70-110)
[2021-07-14] MEDS: ZOLPIDEM TARTRATE 10 MG TABLET PO PRN (20:30)
[2021-07-15] MEDS: PENICILLIN V POTASSIUM 500 MG TABLET PO SCH ×3 (00:03→17:36)
[2021-07-15 05:42] LABS: GLUCOMETER DEV NAME(LOC) 3EX.; GLUCOSE,POINT OF CARE 249 MG/DL (70-110)
[2021-07-15] MEDS: MetFORMIN HCL 500 MG TABLET PO SCH ×2 (06:34→17:37)
[2021-07-15] MEDS: INSULIN LISPRO 100 UNITS/ML SQ PRN ×4 (06:36→21:03)
[2021-07-15] MEDS: OLANZapine 5 MG TABLET PO SCH ×2 (08:23→20:46)
[2021-07-15] MEDS: ATORVASTATIN CALCIUM 20 MG TABLET PO SCH (08:24)
[2021-07-15] MEDS: FLUoxetine HCL 20 MG CAPSULE PO SCH (08:24)
[2021-07-15] MEDS: OMEGA-3/DHA/EPA/FISH OIL 1,000 MG CAPSULE PO SCH (08:24)
[2021-07-15 09:18] VITALS: BP 108/77
[2021-07-15 11:36] LABS: GLUCOMETER DEV NAME(LOC) 3EX.; GLUCOSE,POINT OF CARE 264 MG/DL (70-110)
[2021-07-15 16:09] VITALS: BP 135/75
[2021-07-15 16:31] LABS: GLUCOMETER DEV NAME(LOC) 3EX.; GLUCOSE,POINT OF CARE 296 MG/DL (70-110)
[2021-07-15] MEDS: HALOPERIDOL 5 MG TABLET PO PRN (17:37)
[2021-07-15 20:41] LABS: GLUCOMETER DEV NAME(LOC) 3EX.; GLUCOSE,POINT OF CARE 237 MG/DL (70-110)
[2021-07-15] MEDS: ZOLPIDEM TARTRATE 10 MG TABLET PO PRN (20:47)
[2021-07-16] MEDS: PENICILLIN V POTASSIUM 500 MG TABLET PO SCH ×3 (00:09→16:23)
[2021-07-16 06:17] LABS: GLUCOMETER DEV NAME(LOC) 3EX.; GLUCOSE,POINT OF CARE 279 MG/DL (70-110)
[2021-07-16] MEDS: MetFORMIN HCL 500 MG TABLET PO SCH ×2 (06:49→16:22)
[2021-07-16] MEDS: INSULIN LISPRO 100 UNITS/ML SQ PRN ×4 (06:51→21:27)
[2021-07-16] MEDS: FLUoxetine HCL 20 MG CAPSULE PO SCH (09:06)
[2021-07-16] MEDS: ATORVASTATIN CALCIUM 20 MG TABLET PO SCH (09:06)
[2021-07-16] MEDS: OMEGA-3/DHA/EPA/FISH OIL 1,000 MG CAPSULE PO SCH (09:06)
[2021-07-16] MEDS: OLANZapine 5 MG TABLET PO SCH ×2 (09:07→20:07)
[2021-07-16 10:53] VITALS: BP 96/64
[2021-07-16 11:41] LABS: GLUCOMETER DEV NAME(LOC) 3EX.; GLUCOSE,POINT OF CARE 258 MG/DL (70-110)
[2021-07-16 16:20] VITALS: BP 144/73
[2021-07-16 21:11] LABS: GLUCOMETER DEV NAME(LOC) 3EX.; GLUCOSE,POINT OF CARE 285 MG/DL (70-110)
[2021-07-16 21:11] LABS: GLUCOMETER DEV NAME(LOC) 3EX.; GLUCOSE,POINT OF CARE 392 MG/DL (70-110)
[2021-07-17] MEDS: PENICILLIN V POTASSIUM 500 MG TABLET PO SCH ×3 (00:13→16:35)
[2021-07-17 05:31] LABS: GLUCOMETER DEV NAME(LOC) 3EX.; GLUCOSE,POINT OF CARE 249 MG/DL (70-110)
[2021-07-17] MEDS: INSULIN LISPRO 100 UNITS/ML SQ PRN ×3 (06:42→18:25)
[2021-07-17] MEDS: MetFORMIN HCL 500 MG TABLET PO SCH ×2 (06:42→16:35)
[2021-07-17] MEDS: OMEGA-3/DHA/EPA/FISH OIL 1,000 MG CAPSULE PO SCH (08:06)
[2021-07-17] MEDS: ATORVASTATIN CALCIUM 20 MG TABLET PO SCH (08:06)
[2021-07-17] MEDS: OLANZapine 5 MG TABLET PO SCH ×2 (08:06→21:20)
[2021-07-17] MEDS: FLUoxetine HCL 20 MG CAPSULE PO SCH (08:07)
[2021-07-17 09:51] VITALS: BP 130/87
[2021-07-17 11:11] LABS: GLUCOMETER DEV NAME(LOC) 3EX.; GLUCOSE,POINT OF CARE 359 MG/DL (70-110)
[2021-07-17 16:26] LABS: GLUCOMETER DEV NAME(LOC) 3EX.; GLUCOSE,POINT OF CARE 313 MG/DL (70-110)
[2021-07-17] MEDS: GlipiZIDE 5 MG TABLET PO SCH (16:35)
[2021-07-17 16:59] VITALS: BP 124/82
[2021-07-17 20:46] LABS: GLUCOMETER DEV NAME(LOC) 3EX.; GLUCOSE,POINT OF CARE 106 MG/DL (70-110)
[2021-07-18 05:51] LABS: GLUCOMETER DEV NAME(LOC) 3EX.; GLUCOSE,POINT OF CARE 209 MG/DL (70-110)
[2021-07-18] MEDS: GlipiZIDE 5 MG TABLET PO SCH ×2 (06:42→16:29)
[2021-07-18] MEDS: MetFORMIN HCL 500 MG TABLET PO SCH ×2 (06:42→16:28)
[2021-07-18] MEDS: INSULIN LISPRO 100 UNITS/ML SQ PRN ×4 (06:43→21:05)
[2021-07-18] MEDS: OLANZapine 5 MG TABLET PO SCH ×2 (08:11→21:07)
[2021-07-18] MEDS: ATORVASTATIN CALCIUM 20 MG TABLET PO SCH (08:11)
[2021-07-18] MEDS: OMEGA-3/DHA/EPA/FISH OIL 1,000 MG CAPSULE PO SCH (08:11)
[2021-07-18] MEDS: FLUoxetine HCL 20 MG CAPSULE PO SCH (08:11)
[2021-07-18 09:31] VITALS: BP 107/71
[2021-07-18 11:51] LABS: GLUCOMETER DEV NAME(LOC) 3EX.; GLUCOSE,POINT OF CARE 282 MG/DL (70-110)
[2021-07-18 16:00] VITALS: BP 99/69
[2021-07-18 16:31] LABS: GLUCOMETER DEV NAME(LOC) 3EX.; GLUCOSE,POINT OF CARE 315 MG/DL (70-110)
[2021-07-18 21:12] LABS: GLUCOMETER DEV NAME(LOC) 3EX.; GLUCOSE,POINT OF CARE 192 MG/DL (70-110)
[2021-07-19 05:52] LABS: GLUCOMETER DEV NAME(LOC) 3EX.; GLUCOSE,POINT OF CARE 263 MG/DL (70-110)
[2021-07-19] MEDS: GlipiZIDE 5 MG TABLET PO SCH ×2 (07:02→16:36)
[2021-07-19] MEDS: MetFORMIN HCL 500 MG TABLET PO SCH ×2 (07:03→17:38)
[2021-07-19] MEDS: INSULIN LISPRO 100 UNITS/ML SQ PRN ×4 (07:05→21:08)
[2021-07-19] MEDS: OLANZapine 5 MG TABLET PO SCH ×2 (08:29→20:47)
[2021-07-19] MEDS: FLUoxetine HCL 20 MG CAPSULE PO SCH (08:29)
[2021-07-19] MEDS: OMEGA-3/DHA/EPA/FISH OIL 1,000 MG CAPSULE PO SCH (08:29)
[2021-07-19] MEDS: ATORVASTATIN CALCIUM 20 MG TABLET PO SCH (08:29)
[2021-07-19 09:12] VITALS: BP 113/77
[2021-07-19 11:41] LABS: GLUCOMETER DEV NAME(LOC) 3EX.; GLUCOSE,POINT OF CARE 236 MG/DL (70-110)
[2021-07-19 16:00] VITALS: BP 119/87
[2021-07-19 16:26] LABS: GLUCOMETER DEV NAME(LOC) 3E.I 2; GLUCOSE,POINT OF CARE 361 MG/DL (70-110)
[2021-07-19 21:21] LABS: GLUCOMETER DEV NAME(LOC) 3EX.; GLUCOSE,POINT OF CARE 206 MG/DL (70-110)
[2021-07-20 06:36] LABS: GLUCOMETER DEV NAME(LOC) 3EX.; GLUCOSE,POINT OF CARE 280 MG/DL (70-110)
[2021-07-20] MEDS: GlipiZIDE 5 MG TABLET PO SCH ×2 (06:48→17:06)
[2021-07-20] MEDS: MetFORMIN HCL 500 MG TABLET PO SCH ×2 (06:49→17:06)
[2021-07-20] MEDS: INSULIN LISPRO 100 UNITS/ML SQ PRN ×4 (07:10→21:19)
[2021-07-20] MEDS: ATORVASTATIN CALCIUM 20 MG TABLET PO SCH (09:00)
[2021-07-20] MEDS: OLANZapine 5 MG TABLET PO SCH ×2 (09:00→20:11)
[2021-07-20] MEDS: OMEGA-3/DHA/EPA/FISH OIL 1,000 MG CAPSULE PO SCH (09:00)
[2021-07-20] MEDS: FLUoxetine HCL 20 MG CAPSULE PO SCH (09:00)
[2021-07-20 09:56] VITALS: BP 114/75
[2021-07-20 16:00] VITALS: BP 107/68
[2021-07-20 16:46] LABS: GLUCOMETER DEV NAME(LOC) 3EX.; GLUCOSE,POINT OF CARE 295 MG/DL (70-110)
[2021-07-20 20:45] LABS: GLUCOMETER DEV NAME(LOC) 3EX.; GLUCOSE,POINT OF CARE 175 MG/DL (70-110)
[2021-07-21 06:36] LABS: GLUCOMETER DEV NAME(LOC) 3EX.; GLUCOSE,POINT OF CARE 203 MG/DL (70-110)
[2021-07-21] MEDS: GlipiZIDE 5 MG TABLET PO SCH ×2 (06:58→16:46)
[2021-07-21] MEDS: MetFORMIN HCL 500 MG TABLET PO SCH ×2 (06:58→17:49)
[2021-07-21] MEDS: INSULIN LISPRO 100 UNITS/ML SQ PRN ×4 (07:04→20:54)
[2021-07-21] MEDS: FLUoxetine HCL 20 MG CAPSULE PO SCH (08:31)
[2021-07-21] MEDS: ATORVASTATIN CALCIUM 20 MG TABLET PO SCH (08:32)
[2021-07-21] MEDS: OLANZapine 5 MG TABLET PO SCH ×2 (08:32→20:53)
[2021-07-21] MEDS: OMEGA-3/DHA/EPA/FISH OIL 1,000 MG CAPSULE PO SCH (08:32)
[2021-07-21 11:41] LABS: GLUCOMETER DEV NAME(LOC) 3EX.; GLUCOSE,POINT OF CARE 216 MG/DL (70-110)
[2021-07-21 14:19] LABS: COVID AG,FIA SOURCE NASAL SWAB
[2021-07-21 16:19] VITALS: BP 106/72
[2021-07-21 16:36] LABS: GLUCOMETER DEV NAME(LOC) 3EX.; GLUCOSE,POINT OF CARE 274 MG/DL (70-110)
[2021-07-21 20:21] LABS: GLUCOMETER DEV NAME(LOC) 3EX.; GLUCOSE,POINT OF CARE 242 MG/DL (70-110)
[2021-07-22 06:41] LABS: GLUCOMETER DEV NAME(LOC) 3EX.; GLUCOSE,POINT OF CARE 293 MG/DL (70-110)
[2021-07-22] MEDS: GlipiZIDE 5 MG TABLET PO SCH ×2 (06:51→16:54)
[2021-07-22] MEDS: INSULIN LISPRO 100 UNITS/ML SQ PRN ×4 (06:52→21:08)
[2021-07-22] MEDS: MetFORMIN HCL 500 MG TABLET PO SCH ×2 (06:55→16:54)
[2021-07-22] MEDS: OLANZapine 5 MG TABLET PO SCH ×2 (08:22→20:22)
[2021-07-22] MEDS: OMEGA-3/DHA/EPA/FISH OIL 1,000 MG CAPSULE PO SCH (08:22)
[2021-07-22] MEDS: FLUoxetine HCL 20 MG CAPSULE PO SCH (08:22)
[2021-07-22] MEDS: ATORVASTATIN CALCIUM 20 MG TABLET PO SCH (08:22)
[2021-07-22 08:45] VITALS: BP 108/73
[2021-07-22 11:46] LABS: GLUCOMETER DEV NAME(LOC) 3EX.; GLUCOSE,POINT OF CARE 238 MG/DL (70-110)
[2021-07-22 16:28] VITALS: BP 108/65
[2021-07-22 16:31] LABS: GLUCOMETER DEV NAME(LOC) 3EX.; GLUCOSE,POINT OF CARE 267 MG/DL (70-110)
[2021-07-22] MEDS: ZOLPIDEM TARTRATE 10 MG TABLET PO PRN (20:22)
[2021-07-22 21:16] LABS: GLUCOMETER DEV NAME(LOC) 3EX.; GLUCOSE,POINT OF CARE 188 MG/DL (70-110)
[2021-07-23 05:42] LABS: GLUCOMETER DEV NAME(LOC) 3EX.; GLUCOSE,POINT OF CARE 233 MG/DL (70-110)
[2021-07-23] MEDS: MetFORMIN HCL 500 MG TABLET PO SCH ×2 (06:42→17:19)
[2021-07-23] MEDS: GlipiZIDE 5 MG TABLET PO SCH ×2 (06:42→16:26)
[2021-07-23] MEDS: INSULIN LISPRO 100 UNITS/ML SQ PRN ×4 (06:43→20:39)
[2021-07-23] MEDS: OLANZapine 5 MG TABLET PO SCH ×2 (08:31→20:39)
[2021-07-23] MEDS: FLUoxetine HCL 20 MG CAPSULE PO SCH (08:31)
[2021-07-23] MEDS: OMEGA-3/DHA/EPA/FISH OIL 1,000 MG CAPSULE PO SCH (08:31)
[2021-07-23] MEDS: ATORVASTATIN CALCIUM 20 MG TABLET PO SCH (08:31)
[2021-07-23 09:56] VITALS: BP 122/81
[2021-07-23 12:46] LABS: GLUCOMETER DEV NAME(LOC) 3EX.; GLUCOSE,POINT OF CARE 329 MG/DL (70-110)
[2021-07-23 16:00] VITALS: BP 140/90
[2021-07-23 17:41] LABS: GLUCOMETER DEV NAME(LOC) 3EX.; GLUCOSE,POINT OF CARE 320 MG/DL (70-110)
[2021-07-23 20:46] LABS: GLUCOMETER DEV NAME(LOC) 3EX.; GLUCOSE,POINT OF CARE 181 MG/DL (70-110)
[2021-07-24 05:41] LABS: GLUCOMETER DEV NAME(LOC) 3EX.; GLUCOSE,POINT OF CARE 247 MG/DL (70-110)
[2021-07-24] MEDS: GlipiZIDE 5 MG TABLET PO SCH ×2 (06:38→16:26)
[2021-07-24] MEDS: MetFORMIN HCL 500 MG TABLET PO SCH ×2 (06:38→17:38)
[2021-07-24] MEDS: INSULIN LISPRO 100 UNITS/ML SQ PRN ×4 (06:41→21:00)
[2021-07-24] MEDS: FLUoxetine HCL 20 MG CAPSULE PO SCH (08:41)
[2021-07-24] MEDS: OLANZapine 5 MG TABLET PO SCH ×2 (08:41→20:53)
[2021-07-24] MEDS: ATORVASTATIN CALCIUM 20 MG TABLET PO SCH (08:41)
[2021-07-24] MEDS: OMEGA-3/DHA/EPA/FISH OIL 1,000 MG CAPSULE PO SCH (08:41)
[2021-07-24] MEDS: SitaGLIPtin PHOSPHATE 25 MG TABLET PO SCH (08:41)
[2021-07-24 11:26] LABS: GLUCOMETER DEV NAME(LOC) 3EX.; GLUCOSE,POINT OF CARE 296 MG/DL (70-110)
[2021-07-24 12:10] VITALS: BP 115/74
[2021-07-24 16:00] VITALS: BP 105/64
[2021-07-24 16:47] LABS: GLUCOMETER DEV NAME(LOC) 3EX.; GLUCOSE,POINT OF CARE 273 MG/DL (70-110)
[2021-07-24 21:11] LABS: GLUCOMETER DEV NAME(LOC) 3EX.; GLUCOSE,POINT OF CARE 172 MG/DL (70-110)
[2021-07-25 05:36] LABS: GLUCOMETER DEV NAME(LOC) 3EX.; GLUCOSE,POINT OF CARE 190 MG/DL (70-110)
[2021-07-25] MEDS: MetFORMIN HCL 500 MG TABLET PO SCH ×2 (06:44→17:07)
[2021-07-25] MEDS: GlipiZIDE 5 MG TABLET PO SCH ×2 (06:44→16:40)
[2021-07-25] MEDS: INSULIN LISPRO 100 UNITS/ML SQ PRN ×4 (06:44→20:33)
[2021-07-25 07:52] LABS: CHOL/HDL RATIO 2.6 (3.9-5.7)
[2021-07-25] MEDS: FLUoxetine HCL 20 MG CAPSULE PO SCH (09:09)
[2021-07-25] MEDS: OMEGA-3/DHA/EPA/FISH OIL 1,000 MG CAPSULE PO SCH (09:09)
[2021-07-25] MEDS: SitaGLIPtin PHOSPHATE 25 MG TABLET PO SCH (09:09)
[2021-07-25] MEDS: OLANZapine 5 MG TABLET PO SCH ×2 (09:09→20:28)
[2021-07-25] MEDS: ATORVASTATIN CALCIUM 20 MG TABLET PO SCH (09:09)
[2021-07-25 11:51] LABS: GLUCOMETER DEV NAME(LOC) 3EX.; GLUCOSE,POINT OF CARE 204 MG/DL (70-110)
[2021-07-25 12:04] VITALS: BP 109/78
[2021-07-25 16:38] VITALS: BP 106/72
[2021-07-25 16:56] LABS: GLUCOMETER DEV NAME(LOC) 3EX.; GLUCOSE,POINT OF CARE 267 MG/DL (70-110)
[2021-07-25 20:46] LABS: GLUCOMETER DEV NAME(LOC) 3EX.; GLUCOSE,POINT OF CARE 228 MG/DL (70-110)
[2021-07-26 05:51] LABS: GLUCOMETER DEV NAME(LOC) 3EX.; GLUCOSE,POINT OF CARE 239 MG/DL (70-110)
[2021-07-26] MEDS: GlipiZIDE 5 MG TABLET PO SCH ×2 (06:39→17:18)
[2021-07-26] MEDS: MetFORMIN HCL 500 MG TABLET PO SCH ×2 (06:39→17:18)
[2021-07-26] MEDS: INSULIN LISPRO 100 UNITS/ML SQ PRN ×4 (06:39→21:06)
[2021-07-26] MEDS: ATORVASTATIN CALCIUM 20 MG TABLET PO SCH (08:43)
[2021-07-26] MEDS: FLUoxetine HCL 20 MG CAPSULE PO SCH (08:43)
[2021-07-26] MEDS: OMEGA-3/DHA/EPA/FISH OIL 1,000 MG CAPSULE PO SCH (08:43)
[2021-07-26] MEDS: SitaGLIPtin PHOSPHATE 25 MG TABLET PO SCH (08:44)
[2021-07-26] MEDS: OLANZapine 5 MG TABLET PO SCH ×2 (08:44→20:37)
[2021-07-26 10:44] VITALS: BP 117/75
[2021-07-26 12:11] LABS: GLUCOMETER DEV NAME(LOC) 3EX.; GLUCOSE,POINT OF CARE 245 MG/DL (70-110)
[2021-07-26 16:19] VITALS: BP 98/65
[2021-07-26 20:26] LABS: GLUCOMETER DEV NAME(LOC) 3EX.; GLUCOSE,POINT OF CARE 302 MG/DL (70-110)
[2021-07-26 20:36] LABS: GLUCOMETER DEV NAME(LOC) 3EX.; GLUCOSE,POINT OF CARE 161 MG/DL (70-110)
[2021-07-26] MEDS: ZOLPIDEM TARTRATE 10 MG TABLET PO PRN (20:37)
[2021-07-27 05:36] LABS: GLUCOMETER DEV NAME(LOC) 3EX.; GLUCOSE,POINT OF CARE 217 MG/DL (70-110)
[2021-07-27] MEDS: MetFORMIN HCL 500 MG TABLET PO SCH ×2 (06:57→16:51)
[2021-07-27] MEDS: GlipiZIDE 5 MG TABLET PO SCH ×2 (06:57→16:51)
[2021-07-27] MEDS: INSULIN LISPRO 100 UNITS/ML SQ PRN ×3 (06:59→17:27)
[2021-07-27 08:05] VITALS: BP 128/55
[2021-07-27] MEDS: FLUoxetine HCL 20 MG CAPSULE PO SCH (08:26)
[2021-07-27] MEDS: OMEGA-3/DHA/EPA/FISH OIL 1,000 MG CAPSULE PO SCH (08:26)
[2021-07-27] MEDS: SitaGLIPtin PHOSPHATE 25 MG TABLET PO SCH (08:26)
[2021-07-27] MEDS: OLANZapine 5 MG TABLET PO SCH ×2 (08:26→20:27)
[2021-07-27] MEDS: ATORVASTATIN CALCIUM 20 MG TABLET PO SCH (08:26)
[2021-07-27 11:37] LABS: GLUCOMETER DEV NAME(LOC) 3EX.; GLUCOSE,POINT OF CARE 289 MG/DL (70-110)
[2021-07-27 16:16] LABS: GLUCOMETER DEV NAME(LOC) 3EX.; GLUCOSE,POINT OF CARE 277 MG/DL (70-110)
[2021-07-27 16:23] VITALS: BP 99/64
[2021-07-27 20:26] LABS: GLUCOMETER DEV NAME(LOC) 3EX.; GLUCOSE,POINT OF CARE 106 MG/DL (70-110)
[2021-07-28 05:42] LABS: GLUCOMETER DEV NAME(LOC) 3EX.; GLUCOSE,POINT OF CARE 202 MG/DL (70-110)
[2021-07-28] MEDS: GlipiZIDE 5 MG TABLET PO SCH ×2 (06:51→17:10)
[2021-07-28] MEDS: MetFORMIN HCL 500 MG TABLET PO SCH ×2 (06:52→17:10)
[2021-07-28] MEDS: INSULIN LISPRO 100 UNITS/ML SQ PRN ×4 (06:55→20:59)
[2021-07-28 07:06] LABS: COVID AG,FIA SOURCE NASAL SWAB
[2021-07-28] MEDS: SitaGLIPtin PHOSPHATE 25 MG TABLET PO SCH (08:11)
[2021-07-28] MEDS: OMEGA-3/DHA/EPA/FISH OIL 1,000 MG CAPSULE PO SCH (08:11)
[2021-07-28] MEDS: FLUoxetine HCL 20 MG CAPSULE PO SCH (08:11)
[2021-07-28] MEDS: ATORVASTATIN CALCIUM 20 MG TABLET PO SCH (08:11)
[2021-07-28] MEDS: OLANZapine 5 MG TABLET PO SCH ×2 (08:11→20:27)
[2021-07-28 08:36] VITALS: BP 106/69
[2021-07-28 12:41] LABS: GLUCOMETER DEV NAME(LOC) 3E.I 2; GLUCOSE,POINT OF CARE 190 MG/DL (70-110)
[2021-07-28 16:27] VITALS: BP 121/65
[2021-07-28 16:35] LABS: GLUCOMETER DEV NAME(LOC) 3EX.; GLUCOSE,POINT OF CARE 287 MG/DL (70-110)
[2021-07-28 20:16] LABS: GLUCOMETER DEV NAME(LOC) 3EX.; GLUCOSE,POINT OF CARE 196 MG/DL (70-110)
[2021-07-28] MEDS: ZOLPIDEM TARTRATE 10 MG TABLET PO PRN (20:27)
[2021-07-29 05:56] LABS: GLUCOMETER DEV NAME(LOC) 3EX.; GLUCOSE,POINT OF CARE 218 MG/DL (70-110)
[2021-07-29] MEDS: MetFORMIN HCL 500 MG TABLET PO SCH ×2 (06:54→16:39)
[2021-07-29] MEDS: GlipiZIDE 5 MG TABLET PO SCH ×2 (06:54→16:06)
[2021-07-29] MEDS: INSULIN LISPRO 100 UNITS/ML SQ PRN ×4 (06:58→20:41)
[2021-07-29 08:00] VITALS: BP 107/73
[2021-07-29] MEDS: ATORVASTATIN CALCIUM 20 MG TABLET PO SCH (08:48)
[2021-07-29] MEDS: OMEGA-3/DHA/EPA/FISH OIL 1,000 MG CAPSULE PO SCH (08:48)
[2021-07-29] MEDS: OLANZapine 5 MG TABLET PO SCH ×2 (08:48→20:18)
[2021-07-29] MEDS: SitaGLIPtin PHOSPHATE 25 MG TABLET PO SCH (08:48)
[2021-07-29] MEDS: FLUoxetine HCL 20 MG CAPSULE PO SCH (08:48)
[2021-07-29 11:36] LABS: GLUCOMETER DEV NAME(LOC) 3EX.; GLUCOSE,POINT OF CARE 195 MG/DL (70-110)
[2021-07-29 16:31] LABS: GLUCOMETER DEV NAME(LOC) 3EX.; GLUCOSE,POINT OF CARE 241 MG/DL (70-110)
[2021-07-29 17:04] VITALS: BP 101/76
[2021-07-29 21:21] LABS: GLUCOMETER DEV NAME(LOC) 3E.I 2; GLUCOSE,POINT OF CARE 237 MG/DL (70-110)
[2021-07-30 05:42] LABS: GLUCOMETER DEV NAME(LOC) 3EX.; GLUCOSE,POINT OF CARE 209 MG/DL (70-110)
[2021-07-30] MEDS: GlipiZIDE 5 MG TABLET PO SCH ×2 (06:39→16:59)
[2021-07-30] MEDS: MetFORMIN HCL 500 MG TABLET PO SCH ×2 (06:39→16:58)
[2021-07-30] MEDS: INSULIN LISPRO 100 UNITS/ML SQ PRN ×4 (06:44→21:01)
[2021-07-30 08:26] VITALS: BP 120/82
[2021-07-30] MEDS: OMEGA-3/DHA/EPA/FISH OIL 1,000 MG CAPSULE PO SCH (09:05)
[2021-07-30] MEDS: OLANZapine 5 MG TABLET PO SCH ×2 (09:05→20:34)
[2021-07-30] MEDS: SitaGLIPtin PHOSPHATE 25 MG TABLET PO SCH (09:06)
[2021-07-30] MEDS: FLUoxetine HCL 20 MG CAPSULE PO SCH (09:06)
[2021-07-30] MEDS: ATORVASTATIN CALCIUM 20 MG TABLET PO SCH (09:06)
[2021-07-30 11:51] LABS: GLUCOMETER DEV NAME(LOC) 3EX.; GLUCOSE,POINT OF CARE 225 MG/DL (70-110)
[2021-07-30 16:16] LABS: GLUCOMETER DEV NAME(LOC) 3EX.; GLUCOSE,POINT OF CARE 241 MG/DL (70-110)
[2021-07-30 16:30] VITALS: BP 109/68
[2021-07-30] MEDS: ZOLPIDEM TARTRATE 10 MG TABLET PO PRN (20:34)
[2021-07-30 20:46] LABS: GLUCOMETER DEV NAME(LOC) 3EX.; GLUCOSE,POINT OF CARE 163 MG/DL (70-110)
[2021-07-31 06:01] LABS: GLUCOMETER DEV NAME(LOC) 3EX.; GLUCOSE,POINT OF CARE 170 MG/DL (70-110)
[2021-07-31] MEDS: MetFORMIN HCL 500 MG TABLET PO SCH ×2 (06:41→16:41)
[2021-07-31] MEDS: INSULIN LISPRO 100 UNITS/ML SQ PRN ×4 (06:41→21:02)
[2021-07-31] MEDS: GlipiZIDE 5 MG TABLET PO SCH ×2 (06:41→16:41)
[2021-07-31] MEDS: ATORVASTATIN CALCIUM 20 MG TABLET PO SCH (08:25)
[2021-07-31] MEDS: SitaGLIPtin PHOSPHATE 25 MG TABLET PO SCH (08:25)
[2021-07-31] MEDS: OMEGA-3/DHA/EPA/FISH OIL 1,000 MG CAPSULE PO SCH (08:25)
[2021-07-31] MEDS: FLUoxetine HCL 20 MG CAPSULE PO SCH (08:25)
[2021-07-31] MEDS: OLANZapine 5 MG TABLET PO SCH ×2 (08:26→20:25)
[2021-07-31 08:53] VITALS: BP 121/75
[2021-07-31 11:36] LABS: GLUCOMETER DEV NAME(LOC) 3EX.; GLUCOSE,POINT OF CARE 266 MG/DL (70-110)
[2021-07-31 16:21] LABS: GLUCOMETER DEV NAME(LOC) 3EX.; GLUCOSE,POINT OF CARE 197 MG/DL (70-110)
[2021-07-31 16:29] VITALS: BP 103/77
[2021-07-31 20:21] LABS: GLUCOMETER DEV NAME(LOC) 3EX.; GLUCOSE,POINT OF CARE 109 MG/DL (70-110)
[2021-08-01 05:57] LABS: GLUCOMETER DEV NAME(LOC) 3EX.; GLUCOSE,POINT OF CARE 169 MG/DL (70-110)
[2021-08-01] MEDS: GlipiZIDE 5 MG TABLET PO SCH ×2 (06:41→17:15)
[2021-08-01] MEDS: MetFORMIN HCL 500 MG TABLET PO SCH ×2 (06:41→17:15)
[2021-08-01] MEDS: INSULIN LISPRO 100 UNITS/ML SQ PRN ×3 (07:03→17:34)
[2021-08-01] MEDS: FLUoxetine HCL 20 MG CAPSULE PO SCH (08:33)
[2021-08-01] MEDS: SitaGLIPtin PHOSPHATE 25 MG TABLET PO SCH (08:33)
[2021-08-01] MEDS: ATORVASTATIN CALCIUM 20 MG TABLET PO SCH (08:33)
[2021-08-01] MEDS: OMEGA-3/DHA/EPA/FISH OIL 1,000 MG CAPSULE PO SCH (08:33)
[2021-08-01] MEDS: OLANZapine 5 MG TABLET PO SCH ×2 (08:34→20:21)
[2021-08-01 08:59] VITALS: BP 124/70
[2021-08-01 10:41] LABS: GLUCOMETER DEV NAME(LOC) 3EX.; GLUCOSE,POINT OF CARE 103 MG/DL (70-110)
[2021-08-01 11:04] LABS: APPEARANCE,URINE HAZY (CLEAR); BILIRUBIN,URINE NEGATIVE (NEGATIVE); GLUCOSE, URINE (UA) 300-500 mg/dL (NEGATIVE); KETONES,URINE NEGATIVE (NEGATIVE); LEUKOCYTE ESTERASE ,URINE LARGE (NEGATIVE); NITRATE,URINE NEGATIVE (NEGATIVE); OCCULT BLOOD,URINE TRACE (NEGATIVE); PH,URINE 6.5 (5.0-8.0); PROTEIN,URINE TRACE mg/dL (NEGATIVE); SPECIFIC GRAVITIY, URINE 1.012 (1.003-1.030); UROBILINOGEN,URINE <=1.0 mg/dL (<=1.0)
[2021-08-01 11:34] LABS: BACTERIA,URINE Moderate /HPF (None Seen); RBC,URINE 0-2 /HPF (0-2); SQUAMOUS EPITHELIAL CELL,UR Moderate /LPF (None Seen)
[2021-08-01 11:36] LABS: GLUCOMETER DEV NAME(LOC) 3EX.; GLUCOSE,POINT OF CARE 191 MG/DL (70-110)
[2021-08-01] MEDS: CEPHALEXIN MONOHYDRATE 500 MG CAPSULE PO SCH ×2 (14:00→16:06)
[2021-08-01 16:00] VITALS: BP 118/79
[2021-08-01 16:26] LABS: GLUCOMETER DEV NAME(LOC) 3EX.; GLUCOSE,POINT OF CARE 223 MG/DL (70-110)
[2021-08-01 20:36] LABS: GLUCOMETER DEV NAME(LOC) 3EX.; GLUCOSE,POINT OF CARE 123 MG/DL (70-110)
[2021-08-02 05:26] LABS: GLUCOMETER DEV NAME(LOC) 3EX.; GLUCOSE,POINT OF CARE 197 MG/DL (70-110)
[2021-08-02] MEDS: MetFORMIN HCL 500 MG TABLET PO SCH ×2 (07:02→17:07)
[2021-08-02] MEDS: GlipiZIDE 5 MG TABLET PO SCH ×2 (07:02→17:07)
[2021-08-02] MEDS: INSULIN LISPRO 100 UNITS/ML SQ PRN ×4 (07:04→21:08)
[2021-08-02 08:02] VITALS: BP 122/71
[2021-08-02] MEDS: OMEGA-3/DHA/EPA/FISH OIL 1,000 MG CAPSULE PO SCH (08:22)
[2021-08-02] MEDS: OLANZapine 5 MG TABLET PO SCH ×2 (08:22→20:44)
[2021-08-02] MEDS: CEPHALEXIN MONOHYDRATE 500 MG CAPSULE PO SCH ×3 (08:22→17:07)
[2021-08-02] MEDS: ATORVASTATIN CALCIUM 20 MG TABLET PO SCH (08:22)
[2021-08-02] MEDS: SitaGLIPtin PHOSPHATE 25 MG TABLET PO SCH (08:23)
[2021-08-02] MEDS: FLUoxetine HCL 20 MG CAPSULE PO SCH (08:23)
[2021-08-02 11:06] LABS: GLUCOMETER DEV NAME(LOC) 3EX.; GLUCOSE,POINT OF CARE 155 MG/DL (70-110)
[2021-08-02 16:31] LABS: GLUCOMETER DEV NAME(LOC) 3EX.; GLUCOSE,POINT OF CARE 276 MG/DL (70-110)
[2021-08-02 16:51] VITALS: BP 99/73
[2021-08-02 20:31] LABS: GLUCOMETER DEV NAME(LOC) 3EX.; GLUCOSE,POINT OF CARE 149 MG/DL (70-110)
[2021-08-03 06:36] LABS: GLUCOMETER DEV NAME(LOC) 3EX.; GLUCOSE,POINT OF CARE 189 MG/DL (70-110)
[2021-08-03] MEDS: MetFORMIN HCL 500 MG TABLET PO SCH ×2 (06:59→16:36)
[2021-08-03] MEDS: GlipiZIDE 5 MG TABLET PO SCH ×2 (06:59→16:03)
[2021-08-03] MEDS: INSULIN LISPRO 100 UNITS/ML SQ PRN ×3 (07:01→17:17)
[2021-08-03 08:40] VITALS: BP 119/72
[2021-08-03] MEDS: SitaGLIPtin PHOSPHATE 25 MG TABLET PO SCH (09:47)
[2021-08-03] MEDS: OMEGA-3/DHA/EPA/FISH OIL 1,000 MG CAPSULE PO SCH (09:48)
[2021-08-03] MEDS: CEPHALEXIN MONOHYDRATE 500 MG CAPSULE PO SCH ×3 (09:48→16:03)
[2021-08-03] MEDS: OLANZapine 5 MG TABLET PO SCH ×2 (09:48→20:04)
[2021-08-03] MEDS: FLUoxetine HCL 20 MG CAPSULE PO SCH (09:48)
[2021-08-03] MEDS: ATORVASTATIN CALCIUM 20 MG TABLET PO SCH (09:48)
[2021-08-03 11:56] LABS: GLUCOMETER DEV NAME(LOC) 3EX.; GLUCOSE,POINT OF CARE 190 MG/DL (70-110)
[2021-08-03 16:21] LABS: GLUCOMETER DEV NAME(LOC) 3EX.; GLUCOSE,POINT OF CARE 238 MG/DL (70-110)
[2021-08-03 16:24] VITALS: BP 109/77
[2021-08-03 21:31] LABS: GLUCOMETER DEV NAME(LOC) 3EX.; GLUCOSE,POINT OF CARE 130 MG/DL (70-110)
[2021-08-04 06:11] LABS: GLUCOMETER DEV NAME(LOC) 3EX.; GLUCOSE,POINT OF CARE 170 MG/DL (70-110)
[2021-08-04] MEDS: GlipiZIDE 5 MG TABLET PO SCH ×2 (06:50→17:01)
[2021-08-04] MEDS: MetFORMIN HCL 500 MG TABLET PO SCH ×2 (06:51→17:01)
[2021-08-04] MEDS: INSULIN LISPRO 100 UNITS/ML SQ PRN ×3 (07:02→17:02)
[2021-08-04] MEDS: OLANZapine 5 MG TABLET PO SCH ×2 (08:57→20:55)
[2021-08-04] MEDS: ATORVASTATIN CALCIUM 20 MG TABLET PO SCH (08:57)
[2021-08-04] MEDS: CEPHALEXIN MONOHYDRATE 500 MG CAPSULE PO SCH ×3 (08:57→17:01)
[2021-08-04] MEDS: SitaGLIPtin PHOSPHATE 25 MG TABLET PO SCH (08:57)
[2021-08-04] MEDS: OMEGA-3/DHA/EPA/FISH OIL 1,000 MG CAPSULE PO SCH (08:57)
[2021-08-04] MEDS: FLUoxetine HCL 20 MG CAPSULE PO SCH (08:58)
[2021-08-04 09:05] VITALS: BP 104/67
[2021-08-04 10:02] LABS: COVID AG,FIA SOURCE NASOPHARYNGEAL
[2021-08-04 11:41] LABS: GLUCOMETER DEV NAME(LOC) 3EX.; GLUCOSE,POINT OF CARE 125 MG/DL (70-110)
[2021-08-04 16:00] VITALS: BP 104/68
[2021-08-04 16:31] LABS: GLUCOMETER DEV NAME(LOC) 3EX.; GLUCOSE,POINT OF CARE 232 MG/DL (70-110)
[2021-08-04 20:06] LABS: GLUCOMETER DEV NAME(LOC) 3EX.; GLUCOSE,POINT OF CARE 133 MG/DL (70-110)
[2021-08-05 06:16] LABS: GLUCOMETER DEV NAME(LOC) 3EX.; GLUCOSE,POINT OF CARE 158 MG/DL (70-110)
[2021-08-05] MEDS: GlipiZIDE 5 MG TABLET PO SCH ×2 (06:59→16:48)
[2021-08-05] MEDS: MetFORMIN HCL 500 MG TABLET PO SCH ×2 (06:59→16:48)
[2021-08-05] MEDS: INSULIN LISPRO 100 UNITS/ML SQ PRN ×4 (07:02→21:01)
[2021-08-05] MEDS: SitaGLIPtin PHOSPHATE 25 MG TABLET PO SCH (09:00)
[2021-08-05] MEDS: OLANZapine 5 MG TABLET PO SCH ×2 (09:00→20:40)
[2021-08-05] MEDS: OMEGA-3/DHA/EPA/FISH OIL 1,000 MG CAPSULE PO SCH (09:00)
[2021-08-05] MEDS: FLUoxetine HCL 20 MG CAPSULE PO SCH (09:00)
[2021-08-05] MEDS: CEPHALEXIN MONOHYDRATE 500 MG CAPSULE PO SCH ×3 (09:00→16:48)
[2021-08-05] MEDS: ATORVASTATIN CALCIUM 20 MG TABLET PO SCH (09:00)
[2021-08-05 09:05] VITALS: BP 109/74
[2021-08-05 11:41] LABS: GLUCOMETER DEV NAME(LOC) 3EX.; GLUCOSE,POINT OF CARE 163 MG/DL (70-110)
[2021-08-05 16:36] LABS: GLUCOMETER DEV NAME(LOC) 3EX.; GLUCOSE,POINT OF CARE 198 MG/DL (70-110)
[2021-08-05 16:39] VITALS: BP 124/79
[2021-08-05] MEDS: HALOPERIDOL 5 MG TABLET PO PRN (16:49)
[2021-08-05] MEDS: LORazepam 2 MG TABLET PO PRN (19:30)
[2021-08-05 20:16] LABS: GLUCOMETER DEV NAME(LOC) 3E.I 2; GLUCOSE,POINT OF CARE 147 MG/DL (70-110)
[2021-08-06 06:26] LABS: GLUCOMETER DEV NAME(LOC) 3EX.; GLUCOSE,POINT OF CARE 154 MG/DL (70-110)
[2021-08-06] MEDS: GlipiZIDE 5 MG TABLET PO SCH (06:52)
[2021-08-06] MEDS: MetFORMIN HCL 500 MG TABLET PO SCH (06:52)
[2021-08-06] MEDS: INSULIN LISPRO 100 UNITS/ML SQ PRN ×2 (06:52→11:36)
[2021-08-06 08:00] VITALS: BP 118/78
[2021-08-06] MEDS: ATORVASTATIN CALCIUM 20 MG TABLET PO SCH (08:34)
[2021-08-06] MEDS: FLUoxetine HCL 20 MG CAPSULE PO SCH (08:34)
[2021-08-06] MEDS: OMEGA-3/DHA/EPA/FISH OIL 1,000 MG CAPSULE PO SCH (08:34)
[2021-08-06] MEDS: OLANZapine 5 MG TABLET PO SCH (08:34)
[2021-08-06] MEDS: CEPHALEXIN MONOHYDRATE 500 MG CAPSULE PO SCH (08:34)
[2021-08-06] MEDS: SitaGLIPtin PHOSPHATE 25 MG TABLET PO SCH (08:35)
[2021-08-06] MEDS ORDERED: METF-1211 PO (09:53)
[2021-08-06] MEDS ORDERED: OLAN5TAB77 PO (09:53)
[2021-08-06] MEDS ORDERED: OMEG-108 PO (09:53)
[2021-08-06] MEDS ORDERED: SITA25 PO (09:53)
[2021-08-06] MEDS ORDERED: GLIP5 PO (09:53)
[2021-08-06] MEDS ORDERED: ATOR20TA86 PO (09:53)
[2021-08-06] MEDS ORDERED: PROZ20 PO (09:53)
[2021-08-06 11:36] LABS: GLUCOMETER DEV NAME(LOC) 3EX.; GLUCOSE,POINT OF CARE 106 MG/DL (70-110)
== END 2021-08-06 14:15 | disposition home or self-care (01) | DRG 750 ==
LOC: 3EI 13:15
PROVIDERS: ADMIT Psychiatry & Neurology Psychiatry; ATTEND Psychiatry & Neurology Psychiatry
PROC: 3E0234Z Introduction of Serum, Toxoid and Vaccine into Muscle, Percutaneous Approach (ICD-10-PCS; principal; 2021-07-10)
DX: F25.1 Schizoaffective disorder, depressive type (principal); E11.9 Type 2 diabetes mellitus without complications; R45.851 Suicidal ideations; E78.5 Hyperlipidemia, unspecified; F15.10 Other stimulant abuse, uncomplicated; F17.200 Nicotine dependence, unspecified, uncomplicated; I10 Essential (primary) hypertension; Z20.822 Contact with and (suspected) exposure to COVID-19; K02.9 Dental caries, unspecified; R41.843 Psychomotor deficit; Z59.00 Homelessness unspecified; Z79.899 Other long term (current) drug therapy; Z71.51 Drug abuse counseling and surveillance of drug abuser; Z71.6 Tobacco abuse counseling; Z79.84 Long term (current) use of oral hypoglycemic drugs; Z23 Encounter for immunization
CPT/HCPCS: 80061; 81001; 82962; 83036; 87081; 87086; 90732

== ENCOUNTER 2021-08-15 04:41 | Emergency (ER) | payer MEDICAID ==
[~2021-08-15] VITALS: Ht 172.7 cm; Wt 90.9 kg
[~2021-08-15 04:41] MED LIST changes: -ARIP15TA27 PO; -ARIP400S3 IM; +GLIP5 PO; -LISI-894 PO; -MIRT-89 PO; -NALT50TA PO; +OLAN5TAB77 PO; +PROZ20 PO; +SITA25 PO
[2021-08-15 04:46] VITALS: BP 119/76
[2021-08-15] MEDS ORDERED: SODIUM CHLORIDE 0.9% 1,000 ML IV ONE (05:00)
[2021-08-15 05:06] LABS: GLUCOMETER DEV NAME(LOC) ERT.5; GLUCOSE,POINT OF CARE 252 MG/DL (70-110)
[2021-08-15 05:10] LABS: BASOPHILS % (AUTO) 0.5 % (0.0-2.0); LYMPHOCYTES # (AUTO) 2.1 K/uL (1.0-4.8); LYMPHOCYTES % (AUTO) 33.4 % (22.0-44.0); MEAN CORPUSCULAR HEMOGLOBIN 26.8 pg (26.0-34.0); MEAN CORPUSCULAR HGB CONC 33.4 G/dL (31.0-37.0); MEAN CORPUSCULAR VOLUME 80 fL (80-100); MONOCYTES # (AUTO) 0.4 K/uL (0.1-1.0); MONOCYTES % (AUTO) 6.5 % (2.0-9.0); NEUTROPHILS # (AUTO) 3.5 K/uL (1.8-7.7); NEUTROPHILS % (AUTO) 55.6 % (40.0-70.0); PLATELET COUNT (AUTO) 231 K/uL (150-450); RED BLOOD CELL COUNT(AUTO) 4.86 MIL/uL (4.00-5.20); RED CELL DISTRIBUTION WIDTH 15.2 % (11.5-14.5)
[2021-08-15 05:23] LABS: ANION GAP 10 mmol/L (8-16); CALCIUM, TOTAL 9.2 mg/dL (8.8-10.5); CARBON DIOXIDE 29 mmol/L (22-29); CHLORIDE 103 mmol/L (98-107); CREATININE 0.58 mg/dL (0.60-1.30); GLUCOSE,RANDOM 260 mg/dL (70-110); POTASSIUM 3.3 mmol/L (3.5-5.1); SODIUM SERUM 142 mmol/L (136-145); UREA NITROGEN, BLOOD 7 mg/dL (7-18)
[2021-08-15 05:24] LABS: GLOMERULAR FILTR. RATE CALC > 60 mL/min (>60)
[2021-08-15 05:30] LABS: ALANINE AMINOTRANSFERASE 32 U/L (12-78); ALBUMIN 3.6 g/dL (3.4-5.0); ALKALINE PHOSPHATASE 88 U/L (46-116); ASPARTATE AMINOTRANSFERASE 18 U/L (15-37); BILIRUBIN,TOTAL 0.5 mg/dL (0.1-1.0); TOTAL PROTEIN, SERUM 7.4 g/dL (6.4-8.2)
== END 2021-08-15 06:50 | disposition home or self-care (01) ==
LOC: EMS 04:43
DX: F32.A Depression, unspecified (principal); E11.9 Type 2 diabetes mellitus without complications; Z86.59 Personal history of other mental and behavioral disorders
CPT/HCPCS: 36415; 80053; 82962; 85025; 96360; 99284; G0480

== ENCOUNTER 2021-08-19 15:13 | Emergency (ER) | payer MEDICAID ==
[~2021-08-19] VITALS: Ht 167.6 cm; Wt 82.0 kg
[2021-08-19 16:01] LABS: BASOPHILS % (AUTO) 0.2 % (0.0-2.0); EOSINOPHILS % (AUTO) 2.1 % (1.0-6.0); HEMATOCRIT 40.6 % (36-46); HEMOGLOBIN 13.4 g/dL (12.0-16.0); LYMPHOCYTES # (AUTO) 2.9 K/uL (1.0-4.8); LYMPHOCYTES % (AUTO) 33.6 % (22.0-44.0); MEAN CORPUSCULAR HEMOGLOBIN 26.5 pg (26.0-34.0); MEAN CORPUSCULAR HGB CONC 32.9 G/dL (31.0-37.0); MEAN CORPUSCULAR VOLUME 81 fL (80-100); MONOCYTES # (AUTO) 0.5 K/uL (0.1-1.0); MONOCYTES % (AUTO) 6.2 % (2.0-9.0); NEUTROPHILS # (AUTO) 4.9 K/uL (1.8-7.7); NEUTROPHILS % (AUTO) 57.9 % (40.0-70.0); PLATELET COUNT (AUTO) 261 K/uL (150-450); RED BLOOD CELL COUNT(AUTO) 5.04 MIL/uL (4.00-5.20); RED CELL DISTRIBUTION WIDTH 15.9 % (11.5-14.5)
[2021-08-19 16:08] LABS: ANION GAP 8 mmol/L (8-16); CALCIUM, TOTAL 9.7 mg/dL (8.8-10.5); CARBON DIOXIDE 29 mmol/L (22-29); CHLORIDE 102 mmol/L (98-107); GLOMERULAR FILTR. RATE CALC > 60 mL/min (>60); GLUCOSE,RANDOM 215 mg/dL (70-110); POTASSIUM 3.8 mmol/L (3.5-5.1); SODIUM SERUM 139 mmol/L (136-145); UREA NITROGEN, BLOOD 7 mg/dL (7-18)
[2021-08-19 16:14] LABS: ALANINE AMINOTRANSFERASE 35 U/L (12-78); ALBUMIN 3.9 g/dL (3.4-5.0); ALKALINE PHOSPHATASE 91 U/L (46-116); ASPARTATE AMINOTRANSFERASE 17 U/L (15-37); BILIRUBIN,TOTAL 0.4 mg/dL (0.1-1.0); TOTAL PROTEIN, SERUM 7.7 g/dL (6.4-8.2)
[2021-08-19 16:44] LABS: APPEARANCE,URINE HAZY (CLEAR); BILIRUBIN,URINE NEGATIVE (NEGATIVE); GLUCOSE, URINE (UA) >=1000 mg/dL (NEGATIVE); LEUKOCYTE ESTERASE ,URINE LARGE (NEGATIVE); NITRATE,URINE NEGATIVE (NEGATIVE); OCCULT BLOOD,URINE NEGATIVE (NEGATIVE); PH,URINE 7.5 (5.0-8.0); PROTEIN,URINE TRACE mg/dL (NEGATIVE); SPECIFIC GRAVITIY, URINE 1.018 (1.003-1.030)
[2021-08-19 17:00] LABS: BACTERIA,URINE Moderate /HPF (None Seen); WBC,URINE 51-100 /HPF (0-5)
[2021-08-19] MEDS ORDERED: CEPH-558 PO (17:10)
[2021-08-19] MEDS ORDERED: PHEN-1103 PO (17:10)
[2021-08-19] MEDS ORDERED: CEPHALEXIN MONOHYDRATE 500 MG CAPSULE PO ONE (17:15)
[2021-08-19 18:49] VITALS: BP 132/62
== END 2021-08-19 18:52 | disposition home or self-care (01) ==
LOC: EMS 15:16
DX: N39.0 Urinary tract infection, site not specified (principal); F32.A Depression, unspecified; E11.9 Type 2 diabetes mellitus without complications
CPT/HCPCS: 80053; 81001; 82962; 85025; 87086; 99283

== ENCOUNTER 2021-08-19 19:16 | Emergency (ER) | payer MEDICAID ==
[~2021-08-19] VITALS: Ht 160 cm; Wt 81.8 kg
[~2021-08-19 19:16] MED LIST changes: +CEPH-558 PO; +PHEN-1103 PO
[2021-08-19 20:24] LABS: BASOPHILS % (AUTO) 0.3 % (0.0-2.0); EOSINOPHILS % (AUTO) 3.3 % (1.0-6.0); HEMATOCRIT 37.9 % (36-46); HEMOGLOBIN 12.7 g/dL (12.0-16.0); LYMPHOCYTES # (AUTO) 2.8 K/uL (1.0-4.8); MEAN CORPUSCULAR HEMOGLOBIN 26.9 pg (26.0-34.0); MEAN CORPUSCULAR HGB CONC 33.4 G/dL (31.0-37.0); MEAN CORPUSCULAR VOLUME 81 fL (80-100); MONOCYTES # (AUTO) 0.4 K/uL (0.1-1.0); MONOCYTES % (AUTO) 5.4 % (2.0-9.0); NEUTROPHILS # (AUTO) 3.9 K/uL (1.8-7.7); PLATELET COUNT (AUTO) 230 K/uL (150-450); RED CELL DISTRIBUTION WIDTH 16.3 % (11.5-14.5)
[2021-08-19 20:36] LABS: ANION GAP 8 mmol/L (8-16); CALCIUM, TOTAL 9.2 mg/dL (8.8-10.5); CARBON DIOXIDE 30 mmol/L (22-29); CHLORIDE 104 mmol/L (98-107); CREATININE 0.68 mg/dL (0.60-1.30); GLOMERULAR FILTR. RATE CALC > 60 mL/min (>60); GLUCOSE,RANDOM 313 mg/dL (70-110); POTASSIUM 3.6 mmol/L (3.5-5.1); SODIUM SERUM 142 mmol/L (136-145); UREA NITROGEN, BLOOD 7 mg/dL (7-18)
[2021-08-19 20:42] LABS: ALANINE AMINOTRANSFERASE 28 U/L (12-78); ALBUMIN 3.4 g/dL (3.4-5.0); ALKALINE PHOSPHATASE 81 U/L (46-116); ASPARTATE AMINOTRANSFERASE 15 U/L (15-37); BILIRUBIN,TOTAL 0.4 mg/dL (0.1-1.0); TOTAL PROTEIN, SERUM 6.7 g/dL (6.4-8.2)
[2021-08-20 04:34] VITALS: BP 102/59
== END 2021-08-20 05:22 | disposition home or self-care (01) ==
LOC: EMS 19:17
DX: F15.10 Other stimulant abuse, uncomplicated (principal); F32.9 Major depressive disorder, single episode, unspecified; E11.9 Type 2 diabetes mellitus without complications; Z79.84 Long term (current) use of oral hypoglycemic drugs; Z79.899 Other long term (current) drug therapy
CPT/HCPCS: 36415; 80053; 85025; 99283; G0480

== ENCOUNTER 2021-09-07 17:41 | Inpatient (IN) | payer MEDICAID ==
[~2021-09-07] VITALS: Ht 172.7 cm; Wt 78.7 kg
[~2021-09-07 17:41] MED LIST changes: +GLIP-333 PO; -GLIP5 PO
[2021-09-07 18:16] LABS: GLUCOMETER DEV NAME(LOC) ERT.5; GLUCOSE,POINT OF CARE 357 MG/DL (70-110)
[2021-09-07] MEDS ORDERED: ACETAMINOPHEN 500 MG TABLET PO ONE (18:30)
[2021-09-07 18:42] LABS: BASOPHILS % (AUTO) 0.2 % (0.0-2.0); EOSINOPHILS % (AUTO) 1.7 % (1.0-6.0); HEMATOCRIT 36.3 % (36-46); HEMOGLOBIN 11.9 g/dL (12.0-16.0); LYMPHOCYTES # (AUTO) 2.5 K/uL (1.0-4.8); LYMPHOCYTES % (AUTO) 33.4 % (22.0-44.0); MEAN CORPUSCULAR HEMOGLOBIN 26.4 pg (26.0-34.0); MEAN CORPUSCULAR HGB CONC 32.7 G/dL (31.0-37.0); MEAN CORPUSCULAR VOLUME 81 fL (80-100); MONOCYTES # (AUTO) 0.5 K/uL (0.1-1.0); MONOCYTES % (AUTO) 6.8 % (2.0-9.0); NEUTROPHILS # (AUTO) 4.4 K/uL (1.8-7.7); NEUTROPHILS % (AUTO) 57.9 % (40.0-70.0); PLATELET COUNT (AUTO) 280 K/uL (150-450); RED CELL DISTRIBUTION WIDTH 14.8 % (11.5-14.5)
[2021-09-07 18:48] LABS: ANION GAP 3 mmol/L (8-16); CALCIUM, TOTAL 8.7 mg/dL (8.8-10.5); CARBON DIOXIDE 32 mmol/L (22-29); CHLORIDE 103 mmol/L (98-107); CREATININE 0.57 mg/dL (0.60-1.30); GLOMERULAR FILTR. RATE CALC > 60 mL/min (>60); GLUCOSE,RANDOM 351 mg/dL (70-110); POTASSIUM 3.6 mmol/L (3.5-5.1); SODIUM SERUM 138 mmol/L (136-145); UREA NITROGEN, BLOOD 9 mg/dL (7-18)
[2021-09-07 18:54] LABS: ALANINE AMINOTRANSFERASE 23 U/L (12-78); ALBUMIN 3.2 g/dL (3.4-5.0); ALKALINE PHOSPHATASE 96 U/L (46-116); ASPARTATE AMINOTRANSFERASE 11 U/L (15-37); BILIRUBIN,TOTAL 0.1 mg/dL (0.1-1.0); TOTAL PROTEIN, SERUM 6.6 g/dL (6.4-8.2)
[2021-09-07 19:00] LABS: COVID AG,FIA SOURCE NASOPHARYNGEAL
[2021-09-07] MEDS ORDERED: ZOLPIDEM TARTRATE 10 MG TABLET PO PRN (19:30)
[2021-09-07 20:01] LABS: APPEARANCE,URINE HAZY (CLEAR); BILIRUBIN,URINE NEGATIVE (NEGATIVE); GLUCOSE, URINE (UA) >=1000 mg/dL (NEGATIVE); KETONES,URINE NEGATIVE (NEGATIVE); LEUKOCYTE ESTERASE ,URINE LARGE (NEGATIVE); NITRATE,URINE NEGATIVE (NEGATIVE); OCCULT BLOOD,URINE TRACE (NEGATIVE); PROTEIN,URINE NEGATIVE (NEGATIVE); SPECIFIC GRAVITIY, URINE 1.036 (1.003-1.030); UROBILINOGEN,URINE <=1.0 mg/dL (<=1.0)
[2021-09-07 20:08] LABS: BACTERIA,URINE Few /HPF (None Seen); SQUAMOUS EPITHELIAL CELL,UR Few /LPF (None Seen); WBC,URINE 51-100 /HPF (0-5)
[2021-09-07 20:11] LABS: AMPHET/METH SCREEN,URINE NEGATIVE (NEGATIVE); BARBITURATE SCREEN, URINE NEGATIVE (NEGATIVE); BENZODIAZEPINES SCREEN,URINE NEGATIVE (NEGATIVE); CANNABINOID SCREEN,URINE NEGATIVE (NEGATIVE); COCAINE SCREEN,URINE POSITIVE (NEGATIVE); METHADONE SCREEN, URINE NEGATIVE (NEGATIVE); OPIATE SCREEN,URINE NEGATIVE (NEGATIVE)
[2021-09-07 20:25] VITALS: BP 134/86
[2021-09-07] MEDS ORDERED: DEXTROSE 50%-WATER 25 GM/50 ML SYRINGE IVP PRN (20:30)
[2021-09-07 20:31] LABS: GLUCOMETER DEV NAME(LOC) ERT.5; GLUCOSE,POINT OF CARE 264 MG/DL (70-110)
[2021-09-07 20:34] LABS: PHENCYCLIDINE SCREEN,URINE NEGATIVE (NEGATIVE)
[2021-09-07] MEDS ORDERED: PERMETHRIN 5% 60 GM CREAM TP ONE (20:45)
[2021-09-07] MEDS: INSULIN LISPRO 100 UNITS/ML SQ PRN (21:32)
[2021-09-07 21:41] LABS: GLUCOMETER DEV NAME(LOC) 3E.I 2; GLUCOSE,POINT OF CARE 328 MG/DL (70-110)
[2021-09-07] MEDS: BACITRACIN 28 GM OINTMENT TP SCH (22:08)
[2021-09-07] MEDS: CEPHALEXIN MONOHYDRATE 500 MG CAPSULE PO SCH (22:08)
[2021-09-08 06:26] LABS: GLUCOMETER DEV NAME(LOC) 3EX.; GLUCOSE,POINT OF CARE 238 MG/DL (70-110)
[2021-09-08] MEDS: GlipiZIDE 5 MG TABLET PO SCH ×2 (06:46→16:50)
[2021-09-08] MEDS: MetFORMIN HCL 500 MG TABLET PO SCH ×2 (06:46→16:50)
[2021-09-08] MEDS: INSULIN LISPRO 100 UNITS/ML SQ PRN ×3 (06:47→20:19)
[2021-09-08] MEDS: CEPHALEXIN MONOHYDRATE 500 MG CAPSULE PO SCH ×3 (08:55→16:51)
[2021-09-08] MEDS: ATORVASTATIN CALCIUM 20 MG TABLET PO SCH (08:55)
[2021-09-08] MEDS: SitaGLIPtin PHOSPHATE 25 MG TABLET PO SCH (08:55)
[2021-09-08] MEDS: BACITRACIN 28 GM OINTMENT TP SCH ×2 (08:56→16:49)
[2021-09-08 09:19] VITALS: BP 97/60
[2021-09-08] MEDS ORDERED: CloNIDine HCL 0.1 MG TABLET PO PRN (09:45)
[2021-09-08] MEDS ORDERED: PETROLATUM,WHITE 28 GM JELLY TP PRN (09:45)
[2021-09-08] MEDS ORDERED: DOCUSATE SODIUM 100 MG CAPSULE PO PRN (09:45)
[2021-09-08] MEDS ORDERED: GuaiFENesin/D-METHORPHAN [SUGAR-FREE] 200-20MG/10 ML SYRUP UDCUP PO PRN (09:45)
[2021-09-08] MEDS ORDERED: NICOTINE 14 MG/24 HOUR PATCH TD PRN (09:45)
[2021-09-08] MEDS ORDERED: ONDANSETRON HCL 4 MG TABLET PO PRN (09:45)
[2021-09-08] MEDS ORDERED: ALBUTEROL SULFATE HFA 90 MCG/PUFF 8 GM INHALER IH PRN (09:45)
[2021-09-08] MEDS ORDERED: MAG HYDROX/AL HYDROX/SIMETH ES 30 ML SUSPENSION UDCUP PO PRN (09:45)
[2021-09-08] MEDS ORDERED: MAGNESIUM HYDROXIDE SUSPENSION 30 ML UDCUP PO PRN (09:45)
[2021-09-08] MEDS ORDERED: IBUPROFEN 400 MG TABLET PO PRN (09:45)
[2021-09-08] MEDS ORDERED: LOPERAMIDE HCL 2 MG CAPSULE PO PRN (09:45)
[2021-09-08] MEDS: HALOPERIDOL 5 MG TABLET PO PRN (10:17)
[2021-09-08] MEDS: LORazepam 2 MG TABLET PO PRN (10:17)
[2021-09-08 11:41] LABS: GLUCOMETER DEV NAME(LOC) 3E.I 2; GLUCOSE,POINT OF CARE 108 MG/DL (70-110)
[2021-09-08] MEDS: FLUoxetine HCL 20 MG CAPSULE PO SCH (14:39)
[2021-09-08 16:00] VITALS: BP 110/65
[2021-09-08] MEDS: OLANZapine 5 MG TABLET PO SCH (16:50)
[2021-09-08 17:11] LABS: GLUCOMETER DEV NAME(LOC) 3E.I 2; GLUCOSE,POINT OF CARE 194 MG/DL (70-110)
[2021-09-08 20:31] LABS: GLUCOMETER DEV NAME(LOC) 3E.I 2; GLUCOSE,POINT OF CARE 127 MG/DL (70-110)
[2021-09-09 06:01] LABS: GLUCOMETER DEV NAME(LOC) 3EX.; GLUCOSE,POINT OF CARE 218 MG/DL (70-110)
[2021-09-09] MEDS: GlipiZIDE 5 MG TABLET PO SCH ×2 (06:35→16:06)
[2021-09-09] MEDS: MetFORMIN HCL 500 MG TABLET PO SCH ×2 (06:35→16:45)
[2021-09-09] MEDS: INSULIN LISPRO 100 UNITS/ML SQ PRN ×4 (06:36→21:03)
[2021-09-09 08:05] VITALS: BP 106/60
[2021-09-09] MEDS: OMEGA-3/DHA/EPA/FISH OIL 1,000 MG CAPSULE PO SCH (09:44)
[2021-09-09] MEDS: ATORVASTATIN CALCIUM 20 MG TABLET PO SCH (09:45)
[2021-09-09] MEDS: CEPHALEXIN MONOHYDRATE 500 MG CAPSULE PO SCH ×3 (09:45→16:06)
[2021-09-09] MEDS: FLUoxetine HCL 20 MG CAPSULE PO SCH (09:45)
[2021-09-09] MEDS: SitaGLIPtin PHOSPHATE 25 MG TABLET PO SCH (09:46)
[2021-09-09] MEDS: BACITRACIN 28 GM OINTMENT TP SCH ×2 (09:46→16:45)
[2021-09-09] MEDS: OLANZapine 5 MG TABLET PO SCH ×2 (09:46→16:05)
[2021-09-09 11:41] LABS: GLUCOMETER DEV NAME(LOC) 3E.I 2; GLUCOSE,POINT OF CARE 149 MG/DL (70-110)
[2021-09-09 16:22] VITALS: BP 137/98
[2021-09-09 17:01] LABS: GLUCOMETER DEV NAME(LOC) 3E.I 2; GLUCOSE,POINT OF CARE 187 MG/DL (70-110)
[2021-09-09 21:11] LABS: GLUCOMETER DEV NAME(LOC) 3E.I 2; GLUCOSE,POINT OF CARE 231 MG/DL (70-110)
[2021-09-10 06:26] LABS: GLUCOMETER DEV NAME(LOC) 3EX.; GLUCOSE,POINT OF CARE 196 MG/DL (70-110)
[2021-09-10] MEDS: GlipiZIDE 5 MG TABLET PO SCH ×2 (06:55→17:00)
[2021-09-10] MEDS: INSULIN LISPRO 100 UNITS/ML SQ PRN ×4 (06:56→20:46)
[2021-09-10] MEDS: MetFORMIN HCL 500 MG TABLET PO SCH ×2 (06:56→17:28)
[2021-09-10 08:02] VITALS: BP 143/70
[2021-09-10] MEDS: CEPHALEXIN MONOHYDRATE 500 MG CAPSULE PO SCH ×3 (08:38→17:00)
[2021-09-10] MEDS: ATORVASTATIN CALCIUM 20 MG TABLET PO SCH (08:39)
[2021-09-10] MEDS: SitaGLIPtin PHOSPHATE 25 MG TABLET PO SCH (08:39)
[2021-09-10] MEDS: OLANZapine 5 MG TABLET PO SCH ×2 (08:39→17:00)
[2021-09-10] MEDS: BACITRACIN 28 GM OINTMENT TP SCH ×2 (08:39→17:00)
[2021-09-10] MEDS: OMEGA-3/DHA/EPA/FISH OIL 1,000 MG CAPSULE PO SCH (08:39)
[2021-09-10] MEDS: FLUoxetine HCL 20 MG CAPSULE PO SCH (08:39)
[2021-09-10 11:22] LABS: GLUCOMETER DEV NAME(LOC) 3E.I 2; GLUCOSE,POINT OF CARE 191 MG/DL (70-110)
[2021-09-10] MEDS: LORazepam 2 MG TABLET PO PRN (14:04)
[2021-09-10] MEDS: HALOPERIDOL 5 MG TABLET PO PRN ×2 (14:04→17:28)
[2021-09-10 16:08] VITALS: BP 126/79
[2021-09-10 16:16] LABS: GLUCOMETER DEV NAME(LOC) 3EX.; GLUCOSE,POINT OF CARE 267 MG/DL (70-110)
[2021-09-10 20:56] LABS: GLUCOMETER DEV NAME(LOC) 3EX.; GLUCOSE,POINT OF CARE 167 MG/DL (70-110)
[2021-09-11 06:12] LABS: GLUCOMETER DEV NAME(LOC) 3EX.; GLUCOSE,POINT OF CARE 196 MG/DL (70-110)
[2021-09-11] MEDS: MetFORMIN HCL 500 MG TABLET PO SCH ×2 (06:36→17:15)
[2021-09-11] MEDS: GlipiZIDE 5 MG TABLET PO SCH ×2 (06:36→17:15)
[2021-09-11] MEDS: INSULIN LISPRO 100 UNITS/ML SQ PRN ×4 (06:37→21:12)
[2021-09-11 08:19] VITALS: BP 106/79
[2021-09-11] MEDS: FLUoxetine HCL 20 MG CAPSULE PO SCH (08:57)
[2021-09-11] MEDS: ATORVASTATIN CALCIUM 20 MG TABLET PO SCH (08:57)
[2021-09-11] MEDS: SitaGLIPtin PHOSPHATE 25 MG TABLET PO SCH (08:57)
[2021-09-11] MEDS: OLANZapine 5 MG TABLET PO SCH ×2 (08:57→17:15)
[2021-09-11] MEDS: CEPHALEXIN MONOHYDRATE 500 MG CAPSULE PO SCH ×3 (08:57→17:16)
[2021-09-11] MEDS: OMEGA-3/DHA/EPA/FISH OIL 1,000 MG CAPSULE PO SCH (08:57)
[2021-09-11] MEDS: BACITRACIN 28 GM OINTMENT TP SCH ×2 (08:58→17:15)
[2021-09-11 11:30] LABS: GLUCOMETER DEV NAME(LOC) 3E.I 2; GLUCOSE,POINT OF CARE 176 MG/DL (70-110)
[2021-09-11 16:14] VITALS: BP 121/75
[2021-09-11 17:51] LABS: GLUCOMETER DEV NAME(LOC) 3E.I 2; GLUCOSE,POINT OF CARE 243 MG/DL (70-110)
[2021-09-11 21:11] LABS: GLUCOMETER DEV NAME(LOC) 3E.I 2; GLUCOSE,POINT OF CARE 180 MG/DL (70-110)
[2021-09-12 06:26] LABS: GLUCOMETER DEV NAME(LOC) 3EX.; GLUCOSE,POINT OF CARE 234 MG/DL (70-110)
[2021-09-12] MEDS: MetFORMIN HCL 500 MG TABLET PO SCH ×2 (07:01→16:51)
[2021-09-12] MEDS: GlipiZIDE 5 MG TABLET PO SCH ×2 (07:01→16:51)
[2021-09-12] MEDS: INSULIN LISPRO 100 UNITS/ML SQ PRN ×3 (07:09→17:33)
[2021-09-12 08:00] VITALS: BP 109/75
[2021-09-12] MEDS: SitaGLIPtin PHOSPHATE 25 MG TABLET PO SCH (08:31)
[2021-09-12] MEDS: CEPHALEXIN MONOHYDRATE 500 MG CAPSULE PO SCH ×3 (08:32→16:52)
[2021-09-12] MEDS: FLUoxetine HCL 20 MG CAPSULE PO SCH (08:32)
[2021-09-12] MEDS: OLANZapine 5 MG TABLET PO SCH ×2 (08:32→16:51)
[2021-09-12] MEDS: ATORVASTATIN CALCIUM 20 MG TABLET PO SCH (08:32)
[2021-09-12] MEDS: OMEGA-3/DHA/EPA/FISH OIL 1,000 MG CAPSULE PO SCH (08:32)
[2021-09-12] MEDS: BACITRACIN 28 GM OINTMENT TP SCH ×2 (08:32→16:52)
[2021-09-12 11:41] LABS: GLUCOMETER DEV NAME(LOC) 3EX.; GLUCOSE,POINT OF CARE 177 MG/DL (70-110)
[2021-09-12 16:25] LABS: GLUCOMETER DEV NAME(LOC) 3EX.; GLUCOSE,POINT OF CARE 183 MG/DL (70-110)
[2021-09-12 16:32] VITALS: BP 106/64
[2021-09-12 20:45] LABS: GLUCOMETER DEV NAME(LOC) 3EX.; GLUCOSE,POINT OF CARE 110 MG/DL (70-110)
[2021-09-13 06:01] LABS: GLUCOMETER DEV NAME(LOC) 3EX.; GLUCOSE,POINT OF CARE 170 MG/DL (70-110)
[2021-09-13] MEDS: MetFORMIN HCL 500 MG TABLET PO SCH ×2 (06:37→16:34)
[2021-09-13] MEDS: GlipiZIDE 5 MG TABLET PO SCH ×2 (06:37→16:34)
[2021-09-13] MEDS: INSULIN LISPRO 100 UNITS/ML SQ PRN ×4 (06:38→21:07)
[2021-09-13 08:30] VITALS: BP 105/60
[2021-09-13] MEDS: SitaGLIPtin PHOSPHATE 25 MG TABLET PO SCH (09:04)
[2021-09-13] MEDS: ATORVASTATIN CALCIUM 20 MG TABLET PO SCH (09:04)
[2021-09-13] MEDS: OMEGA-3/DHA/EPA/FISH OIL 1,000 MG CAPSULE PO SCH (09:04)
[2021-09-13] MEDS: OLANZapine 5 MG TABLET PO SCH ×2 (09:04→16:34)
[2021-09-13] MEDS: BACITRACIN 28 GM OINTMENT TP SCH ×2 (09:05→16:35)
[2021-09-13] MEDS: FLUoxetine HCL 20 MG CAPSULE PO SCH (09:05)
[2021-09-13 12:01] LABS: GLUCOMETER DEV NAME(LOC) 3E.I 2; GLUCOSE,POINT OF CARE 242 MG/DL (70-110)
[2021-09-13 13:28] LABS: COVID AG,FIA SOURCE NASOPHARYNGEAL
[2021-09-13 16:00] VITALS: BP 115/81
[2021-09-13 16:21] LABS: GLUCOMETER DEV NAME(LOC) 3EX.; GLUCOSE,POINT OF CARE 255 MG/DL (70-110)
[2021-09-13 20:26] LABS: GLUCOMETER DEV NAME(LOC) 3EX.; GLUCOSE,POINT OF CARE 187 MG/DL (70-110)
[2021-09-14 06:26] LABS: GLUCOMETER DEV NAME(LOC) 3EX.; GLUCOSE,POINT OF CARE 201 MG/DL (70-110)
[2021-09-14] MEDS: GlipiZIDE 5 MG TABLET PO SCH ×2 (06:48→16:24)
[2021-09-14] MEDS: MetFORMIN HCL 500 MG TABLET PO SCH ×2 (06:48→16:24)
[2021-09-14] MEDS: INSULIN LISPRO 100 UNITS/ML SQ PRN ×4 (06:49→20:32)
[2021-09-14] MEDS: OMEGA-3/DHA/EPA/FISH OIL 1,000 MG CAPSULE PO SCH (08:26)
[2021-09-14] MEDS: FLUoxetine HCL 20 MG CAPSULE PO SCH (08:26)
[2021-09-14] MEDS: ATORVASTATIN CALCIUM 20 MG TABLET PO SCH (08:26)
[2021-09-14] MEDS: BACITRACIN 28 GM OINTMENT TP SCH ×2 (08:26→16:24)
[2021-09-14] MEDS: SitaGLIPtin PHOSPHATE 25 MG TABLET PO SCH (08:26)
[2021-09-14] MEDS: OLANZapine 5 MG TABLET PO SCH ×2 (08:26→16:24)
[2021-09-14 09:59] VITALS: BP 144/60
[2021-09-14 11:41] LABS: GLUCOMETER DEV NAME(LOC) 3E.I 2; GLUCOSE,POINT OF CARE 228 MG/DL (70-110)
[2021-09-14 16:00] VITALS: BP 104/75
[2021-09-14 16:24] VITALS: BP 104/75
[2021-09-14] MEDS: ACETAMINOPHEN 325 MG TABLET PO PRN (16:24)
[2021-09-14 16:31] LABS: GLUCOMETER DEV NAME(LOC) 3E.I 2; GLUCOSE,POINT OF CARE 252 MG/DL (70-110)
[2021-09-14 20:36] LABS: GLUCOMETER DEV NAME(LOC) 3EX.; GLUCOSE,POINT OF CARE 159 MG/DL (70-110)
[2021-09-15 06:41] LABS: GLUCOMETER DEV NAME(LOC) 3E.I 2; GLUCOSE,POINT OF CARE 203 MG/DL (70-110)
[2021-09-15] MEDS: MetFORMIN HCL 500 MG TABLET PO SCH ×2 (06:42→17:22)
[2021-09-15] MEDS: GlipiZIDE 5 MG TABLET PO SCH ×2 (06:42→17:19)
[2021-09-15] MEDS: INSULIN LISPRO 100 UNITS/ML SQ PRN ×4 (06:44→20:35)
[2021-09-15] MEDS: BACITRACIN 28 GM OINTMENT TP SCH ×2 (08:28→17:20)
[2021-09-15] MEDS: OLANZapine 5 MG TABLET PO SCH ×2 (08:28→17:19)
[2021-09-15] MEDS: ATORVASTATIN CALCIUM 20 MG TABLET PO SCH (08:28)
[2021-09-15] MEDS: SitaGLIPtin PHOSPHATE 25 MG TABLET PO SCH (08:28)
[2021-09-15] MEDS: FLUoxetine HCL 20 MG CAPSULE PO SCH (08:28)
[2021-09-15] MEDS: OMEGA-3/DHA/EPA/FISH OIL 1,000 MG CAPSULE PO SCH (08:28)
[2021-09-15 08:37] VITALS: BP 134/77
[2021-09-15 11:47] LABS: GLUCOMETER DEV NAME(LOC) 3E.I 2; GLUCOSE,POINT OF CARE 264 MG/DL (70-110)
[2021-09-15 16:00] VITALS: BP 105/59
[2021-09-15 17:16] LABS: GLUCOMETER DEV NAME(LOC) 3E.I 2; GLUCOSE,POINT OF CARE 198 MG/DL (70-110)
[2021-09-15 20:30] LABS: GLUCOMETER DEV NAME(LOC) 3E.I 2; GLUCOSE,POINT OF CARE 169 MG/DL (70-110)
[2021-09-16 05:46] LABS: GLUCOMETER DEV NAME(LOC) 3E.I 2; GLUCOSE,POINT OF CARE 179 MG/DL (70-110)
[2021-09-16] MEDS: MetFORMIN HCL 500 MG TABLET PO SCH ×2 (06:37→16:38)
[2021-09-16] MEDS: GlipiZIDE 5 MG TABLET PO SCH ×2 (06:37→16:38)
[2021-09-16] MEDS: INSULIN LISPRO 100 UNITS/ML SQ PRN ×4 (06:38→21:12)
[2021-09-16 08:00] VITALS: BP 136/75
[2021-09-16] MEDS: ATORVASTATIN CALCIUM 20 MG TABLET PO SCH (08:42)
[2021-09-16] MEDS: SitaGLIPtin PHOSPHATE 25 MG TABLET PO SCH (08:42)
[2021-09-16] MEDS: OLANZapine 5 MG TABLET PO SCH ×2 (08:42→16:38)
[2021-09-16] MEDS: OMEGA-3/DHA/EPA/FISH OIL 1,000 MG CAPSULE PO SCH (08:43)
[2021-09-16] MEDS: FLUoxetine HCL 20 MG CAPSULE PO SCH (08:43)
[2021-09-16] MEDS: BACITRACIN 28 GM OINTMENT TP SCH ×2 (08:43→16:38)
[2021-09-16 11:25] LABS: GLUCOMETER DEV NAME(LOC) 3EX.; GLUCOSE,POINT OF CARE 239 MG/DL (70-110)
[2021-09-16 16:26] VITALS: BP 118/70
[2021-09-16 16:31] LABS: GLUCOMETER DEV NAME(LOC) 3E.I 2; GLUCOSE,POINT OF CARE 250 MG/DL (70-110)
[2021-09-16 20:26] LABS: GLUCOMETER DEV NAME(LOC) 3E.I 2; GLUCOSE,POINT OF CARE 183 MG/DL (70-110)
[2021-09-17 05:56] LABS: GLUCOMETER DEV NAME(LOC) 3E.I 2; GLUCOSE,POINT OF CARE 250 MG/DL (70-110)
[2021-09-17] MEDS: GlipiZIDE 5 MG TABLET PO SCH ×2 (06:36→16:39)
[2021-09-17] MEDS: MetFORMIN HCL 500 MG TABLET PO SCH ×2 (06:36→16:39)
[2021-09-17] MEDS: INSULIN LISPRO 100 UNITS/ML SQ PRN ×4 (06:37→21:21)
[2021-09-17] MEDS: FLUoxetine HCL 20 MG CAPSULE PO SCH (08:16)
[2021-09-17] MEDS: OLANZapine 5 MG TABLET PO SCH ×2 (08:16→16:39)
[2021-09-17] MEDS: SitaGLIPtin PHOSPHATE 25 MG TABLET PO SCH (08:16)
[2021-09-17] MEDS: OMEGA-3/DHA/EPA/FISH OIL 1,000 MG CAPSULE PO SCH (08:16)
[2021-09-17] MEDS: ATORVASTATIN CALCIUM 20 MG TABLET PO SCH (08:17)
[2021-09-17] MEDS: BACITRACIN 28 GM OINTMENT TP SCH ×2 (08:18→16:38)
[2021-09-17 08:39] VITALS: BP 142/86
[2021-09-17 11:47] LABS: GLUCOMETER DEV NAME(LOC) 3E.I 2; GLUCOSE,POINT OF CARE 175 MG/DL (70-110)
[2021-09-17 16:36] LABS: GLUCOMETER DEV NAME(LOC) 3EX.; GLUCOSE,POINT OF CARE 177 MG/DL (70-110)
[2021-09-17 16:48] VITALS: BP 133/73
[2021-09-17 20:31] LABS: GLUCOMETER DEV NAME(LOC) 3E.I 2; GLUCOSE,POINT OF CARE 271 MG/DL (70-110)
[2021-09-18 05:56] LABS: GLUCOMETER DEV NAME(LOC) 3E.I 2; GLUCOSE,POINT OF CARE 178 MG/DL (70-110)
[2021-09-18] MEDS: GlipiZIDE 5 MG TABLET PO SCH ×2 (06:35→16:42)
[2021-09-18] MEDS: MetFORMIN HCL 500 MG TABLET PO SCH ×2 (06:35→16:42)
[2021-09-18] MEDS: INSULIN LISPRO 100 UNITS/ML SQ PRN ×3 (06:36→17:06)
[2021-09-18] MEDS: OMEGA-3/DHA/EPA/FISH OIL 1,000 MG CAPSULE PO SCH (08:21)
[2021-09-18] MEDS: BACITRACIN 28 GM OINTMENT TP SCH ×2 (08:21→16:43)
[2021-09-18] MEDS: ATORVASTATIN CALCIUM 20 MG TABLET PO SCH (08:21)
[2021-09-18] MEDS: SitaGLIPtin PHOSPHATE 25 MG TABLET PO SCH (08:21)
[2021-09-18] MEDS: FLUoxetine HCL 20 MG CAPSULE PO SCH (08:21)
[2021-09-18] MEDS: OLANZapine 5 MG TABLET PO SCH ×2 (08:21→16:42)
[2021-09-18 10:17] VITALS: BP 135/84
[2021-09-18 11:36] LABS: GLUCOMETER DEV NAME(LOC) 3EX.; GLUCOSE,POINT OF CARE 257 MG/DL (70-110)
[2021-09-18 16:28] VITALS: BP 109/75
[2021-09-18 16:46] LABS: GLUCOMETER DEV NAME(LOC) 3E.I 2; GLUCOSE,POINT OF CARE 238 MG/DL (70-110)
[2021-09-18 20:16] LABS: GLUCOMETER DEV NAME(LOC) 3E.I 2; GLUCOSE,POINT OF CARE 225 MG/DL (70-110)
[2021-09-18 21:50] VITALS: BP 118/79
[2021-09-18] MEDS: HALOPERIDOL 5 MG TABLET PO PRN (21:53)
[2021-09-18] MEDS: LORazepam 2 MG TABLET PO PRN (21:53)
[2021-09-19 05:47] LABS: GLUCOMETER DEV NAME(LOC) 3E.I 2; GLUCOSE,POINT OF CARE 196 MG/DL (70-110)
[2021-09-19] MEDS: INSULIN LISPRO 100 UNITS/ML SQ PRN ×4 (06:36→21:05)
[2021-09-19] MEDS: MetFORMIN HCL 500 MG TABLET PO SCH ×2 (06:36→16:23)
[2021-09-19] MEDS: GlipiZIDE 5 MG TABLET PO SCH ×2 (06:37→16:24)
[2021-09-19] MEDS: OMEGA-3/DHA/EPA/FISH OIL 1,000 MG CAPSULE PO SCH (08:31)
[2021-09-19] MEDS: OLANZapine 5 MG TABLET PO SCH ×2 (08:31→16:24)
[2021-09-19] MEDS: SitaGLIPtin PHOSPHATE 25 MG TABLET PO SCH (08:31)
[2021-09-19] MEDS: ATORVASTATIN CALCIUM 20 MG TABLET PO SCH (08:31)
[2021-09-19] MEDS: BACITRACIN 28 GM OINTMENT TP SCH ×2 (08:31→16:24)
[2021-09-19] MEDS: FLUoxetine HCL 20 MG CAPSULE PO SCH (08:31)
[2021-09-19 11:51] LABS: GLUCOMETER DEV NAME(LOC) 3EX.; GLUCOSE,POINT OF CARE 188 MG/DL (70-110)
[2021-09-19 12:05] VITALS: BP 123/86
[2021-09-19 16:21] LABS: GLUCOMETER DEV NAME(LOC) 3E.I 2; GLUCOSE,POINT OF CARE 191 MG/DL (70-110)
[2021-09-19 16:27] VITALS: BP 103/63
[2021-09-19 20:26] LABS: GLUCOMETER DEV NAME(LOC) 3EX.; GLUCOSE,POINT OF CARE 152 MG/DL (70-110)
[2021-09-20 06:21] LABS: GLUCOMETER DEV NAME(LOC) 3E.C; GLUCOSE,POINT OF CARE 184 MG/DL (70-110)
[2021-09-20] MEDS: MetFORMIN HCL 500 MG TABLET PO SCH ×2 (06:36→16:48)
[2021-09-20] MEDS: GlipiZIDE 5 MG TABLET PO SCH ×2 (06:36→16:48)
[2021-09-20] MEDS: INSULIN LISPRO 100 UNITS/ML SQ PRN ×3 (06:39→17:56)
[2021-09-20 08:00] VITALS: BP 136/93
[2021-09-20] MEDS: ATORVASTATIN CALCIUM 20 MG TABLET PO SCH (08:19)
[2021-09-20] MEDS: OMEGA-3/DHA/EPA/FISH OIL 1,000 MG CAPSULE PO SCH (08:19)
[2021-09-20] MEDS: SitaGLIPtin PHOSPHATE 25 MG TABLET PO SCH (08:19)
[2021-09-20] MEDS: BACITRACIN 28 GM OINTMENT TP SCH ×2 (08:19→16:06)
[2021-09-20] MEDS: FLUoxetine HCL 20 MG CAPSULE PO SCH (08:19)
[2021-09-20] MEDS: OLANZapine 5 MG TABLET PO SCH ×2 (08:19→16:06)
[2021-09-20 10:54] LABS: COVID AG,FIA SOURCE NASAL SWAB
[2021-09-20 11:21] LABS: GLUCOMETER DEV NAME(LOC) 3EX.; GLUCOSE,POINT OF CARE 218 MG/DL (70-110)
[2021-09-20 12:29] VITALS: BP 126/84
[2021-09-20] MEDS: ACETAMINOPHEN 325 MG TABLET PO PRN (12:29)
[2021-09-20 13:29] VITALS: BP 124/78
[2021-09-20 16:21] LABS: GLUCOMETER DEV NAME(LOC) 3E.I 2; GLUCOSE,POINT OF CARE 278 MG/DL (70-110)
[2021-09-20 16:43] VITALS: BP 114/75
[2021-09-20 20:51] LABS: GLUCOMETER DEV NAME(LOC) 3E.I 2; GLUCOSE,POINT OF CARE 139 MG/DL (70-110)
[2021-09-21 06:12] LABS: GLUCOMETER DEV NAME(LOC) 3E.I 2; GLUCOSE,POINT OF CARE 177 MG/DL (70-110)
[2021-09-21] MEDS: GlipiZIDE 5 MG TABLET PO SCH ×2 (06:41→16:13)
[2021-09-21] MEDS: MetFORMIN HCL 500 MG TABLET PO SCH ×2 (06:42→17:14)
[2021-09-21] MEDS: INSULIN LISPRO 100 UNITS/ML SQ PRN ×2 (06:49→17:13)
[2021-09-21 08:00] VITALS: BP 110/67
[2021-09-21] MEDS: SitaGLIPtin PHOSPHATE 25 MG TABLET PO SCH (08:40)
[2021-09-21] MEDS: BACITRACIN 28 GM OINTMENT TP SCH ×2 (08:40→16:13)
[2021-09-21] MEDS: FLUoxetine HCL 20 MG CAPSULE PO SCH (08:40)
[2021-09-21] MEDS: OLANZapine 5 MG TABLET PO SCH ×2 (08:40→16:13)
[2021-09-21] MEDS: ATORVASTATIN CALCIUM 20 MG TABLET PO SCH (08:40)
[2021-09-21] MEDS: OMEGA-3/DHA/EPA/FISH OIL 1,000 MG CAPSULE PO SCH (08:40)
[2021-09-21 12:01] LABS: GLUCOMETER DEV NAME(LOC) 3E.I 2; GLUCOSE,POINT OF CARE 123 MG/DL (70-110)
[2021-09-21 16:20] VITALS: BP 112/69
[2021-09-21 16:26] LABS: GLUCOMETER DEV NAME(LOC) 3E.I 2; GLUCOSE,POINT OF CARE 243 MG/DL (70-110)
[2021-09-21 21:16] LABS: GLUCOMETER DEV NAME(LOC) 3E.I 2; GLUCOSE,POINT OF CARE 134 MG/DL (70-110)
[2021-09-22 06:37] LABS: GLUCOMETER DEV NAME(LOC) 3E.I 2; GLUCOSE,POINT OF CARE 173 MG/DL (70-110)
[2021-09-22] MEDS: MetFORMIN HCL 500 MG TABLET PO SCH ×2 (06:46→17:03)
[2021-09-22] MEDS: GlipiZIDE 5 MG TABLET PO SCH ×2 (06:46→16:29)
[2021-09-22] MEDS: INSULIN LISPRO 100 UNITS/ML SQ PRN ×4 (06:47→21:05)
[2021-09-22] MEDS: FLUoxetine HCL 20 MG CAPSULE PO SCH (08:14)
[2021-09-22] MEDS: BACITRACIN 28 GM OINTMENT TP SCH ×2 (08:14→16:30)
[2021-09-22] MEDS: ATORVASTATIN CALCIUM 20 MG TABLET PO SCH (08:14)
[2021-09-22] MEDS: SitaGLIPtin PHOSPHATE 25 MG TABLET PO SCH (08:14)
[2021-09-22] MEDS: OMEGA-3/DHA/EPA/FISH OIL 1,000 MG CAPSULE PO SCH (08:14)
[2021-09-22] MEDS: OLANZapine 5 MG TABLET PO SCH ×2 (08:32→16:29)
[2021-09-22 09:23] VITALS: BP 112/79
[2021-09-22 11:36] LABS: GLUCOMETER DEV NAME(LOC) 3EX.; GLUCOSE,POINT OF CARE 198 MG/DL (70-110)
[2021-09-22 16:39] VITALS: BP 107/67
[2021-09-23] MEDS: GlipiZIDE 5 MG TABLET PO SCH ×2 (06:46→16:29)
[2021-09-23] MEDS: MetFORMIN HCL 500 MG TABLET PO SCH ×2 (06:46→17:28)
[2021-09-23] MEDS: INSULIN LISPRO 100 UNITS/ML SQ PRN ×4 (06:48→21:11)
[2021-09-23 08:00] VITALS: BP 109/79
[2021-09-23] MEDS: SitaGLIPtin PHOSPHATE 25 MG TABLET PO SCH (08:55)
[2021-09-23] MEDS: BACITRACIN 28 GM OINTMENT TP SCH ×2 (08:55→16:35)
[2021-09-23] MEDS: OLANZapine 5 MG TABLET PO SCH ×2 (08:55→09:00)
[2021-09-23] MEDS: FLUoxetine HCL 20 MG CAPSULE PO SCH (08:55)
[2021-09-23] MEDS: OMEGA-3/DHA/EPA/FISH OIL 1,000 MG CAPSULE PO SCH (08:55)
[2021-09-23] MEDS: ATORVASTATIN CALCIUM 20 MG TABLET PO SCH (09:00)
[2021-09-23 09:02] VITALS: BP 109/79
[2021-09-23 16:21] VITALS: BP 91/57
[2021-09-23 16:32] LABS: GLUCOMETER DEV NAME(LOC) 3E.I 2; GLUCOSE,POINT OF CARE 206 MG/DL (70-110)
[2021-09-23 16:32] LABS: GLUCOMETER DEV NAME(LOC) 3EX.; GLUCOSE,POINT OF CARE 201 MG/DL (70-110)
[2021-09-23 16:33] LABS: GLUCOMETER DEV NAME(LOC) 3E.I 2; GLUCOSE,POINT OF CARE 212 MG/DL (70-110)
[2021-09-23 16:37] LABS: GLUCOMETER DEV NAME(LOC) 3E.I 2; GLUCOSE,POINT OF CARE 206 MG/DL (70-110)
[2021-09-23 16:38] LABS: GLUCOMETER DEV NAME(LOC) 3E.I 2; GLUCOSE,POINT OF CARE 232 MG/DL (70-110)
[2021-09-23 16:39] LABS: GLUCOMETER DEV NAME(LOC) 3EX.; GLUCOSE,POINT OF CARE 201 MG/DL (70-110)
[2021-09-23 16:39] LABS: GLUCOMETER DEV NAME(LOC) 3E.I 2; GLUCOSE,POINT OF CARE 206 MG/DL (70-110)
[2021-09-23 21:35] LABS: GLUCOMETER DEV NAME(LOC) 3E.I 2; GLUCOSE,POINT OF CARE 145 MG/DL (70-110)
[2021-09-24 06:31] LABS: GLUCOMETER DEV NAME(LOC) 3E.I 2; GLUCOSE,POINT OF CARE 176 MG/DL (70-110)
[2021-09-24] MEDS: MetFORMIN HCL 500 MG TABLET PO SCH ×2 (06:49→17:14)
[2021-09-24] MEDS: INSULIN LISPRO 100 UNITS/ML SQ PRN ×4 (06:57→21:07)
[2021-09-24] MEDS: GlipiZIDE 5 MG TABLET PO SCH ×2 (06:58→16:35)
[2021-09-24 08:00] VITALS: BP 116/63
[2021-09-24] MEDS: OLANZapine 5 MG TABLET PO SCH ×2 (08:24→16:34)
[2021-09-24] MEDS: FLUoxetine HCL 20 MG CAPSULE PO SCH (08:24)
[2021-09-24] MEDS: SitaGLIPtin PHOSPHATE 25 MG TABLET PO SCH (08:25)
[2021-09-24] MEDS: BACITRACIN 28 GM OINTMENT TP SCH ×2 (08:25→16:35)
[2021-09-24] MEDS: OMEGA-3/DHA/EPA/FISH OIL 1,000 MG CAPSULE PO SCH (08:25)
[2021-09-24] MEDS: ATORVASTATIN CALCIUM 20 MG TABLET PO SCH (08:25)
[2021-09-24 12:51] LABS: GLUCOMETER DEV NAME(LOC) 3EX.; GLUCOSE,POINT OF CARE 200 MG/DL (70-110)
[2021-09-24 16:00] VITALS: BP 108/66
[2021-09-24 16:21] LABS: GLUCOMETER DEV NAME(LOC) 3E.I 2; GLUCOSE,POINT OF CARE 230 MG/DL (70-110)
[2021-09-24 21:16] LABS: GLUCOMETER DEV NAME(LOC) 3E.I 2; GLUCOSE,POINT OF CARE 221 MG/DL (70-110)
[2021-09-25 06:12] LABS: GLUCOMETER DEV NAME(LOC) 3E.I 2; GLUCOSE,POINT OF CARE 228 MG/DL (70-110)
[2021-09-25] MEDS: GlipiZIDE 5 MG TABLET PO SCH ×2 (07:01→17:24)
[2021-09-25] MEDS: MetFORMIN HCL 500 MG TABLET PO SCH ×2 (07:02→17:24)
[2021-09-25] MEDS: INSULIN LISPRO 100 UNITS/ML SQ PRN ×3 (07:08→17:27)
[2021-09-25 08:02] VITALS: BP 108/72
[2021-09-25] MEDS: SitaGLIPtin PHOSPHATE 25 MG TABLET PO SCH (08:32)
[2021-09-25] MEDS: FLUoxetine HCL 20 MG CAPSULE PO SCH (08:32)
[2021-09-25] MEDS: OMEGA-3/DHA/EPA/FISH OIL 1,000 MG CAPSULE PO SCH (08:33)
[2021-09-25] MEDS: OLANZapine 5 MG TABLET PO SCH ×2 (08:33→16:04)
[2021-09-25] MEDS: BACITRACIN 28 GM OINTMENT TP SCH ×2 (08:33→16:04)
[2021-09-25] MEDS: ATORVASTATIN CALCIUM 20 MG TABLET PO SCH (08:33)
[2021-09-25 11:56] LABS: GLUCOMETER DEV NAME(LOC) 3E.I 2; GLUCOSE,POINT OF CARE 238 MG/DL (70-110)
[2021-09-25 16:18] VITALS: BP 116/76
[2021-09-25 16:36] LABS: GLUCOMETER DEV NAME(LOC) 3EX.; GLUCOSE,POINT OF CARE 154 MG/DL (70-110)
[2021-09-25 20:31] LABS: GLUCOMETER DEV NAME(LOC) 3EX.; GLUCOSE,POINT OF CARE 89 MG/DL (70-110)
[2021-09-26] MEDS: GlipiZIDE 5 MG TABLET PO SCH ×2 (06:01→16:25)
[2021-09-26 06:07] LABS: GLUCOMETER DEV NAME(LOC) 3E.I 2; GLUCOSE,POINT OF CARE 175 MG/DL (70-110)
[2021-09-26] MEDS: MetFORMIN HCL 500 MG TABLET PO SCH ×2 (06:30→16:25)
[2021-09-26] MEDS: INSULIN LISPRO 100 UNITS/ML SQ PRN ×4 (06:35→21:26)
[2021-09-26 08:01] VITALS: BP 117/78
[2021-09-26] MEDS: FLUoxetine HCL 20 MG CAPSULE PO SCH (08:18)
[2021-09-26] MEDS: OMEGA-3/DHA/EPA/FISH OIL 1,000 MG CAPSULE PO SCH (08:18)
[2021-09-26] MEDS: ATORVASTATIN CALCIUM 20 MG TABLET PO SCH (08:18)
[2021-09-26] MEDS: BACITRACIN 28 GM OINTMENT TP SCH ×2 (08:18→16:26)
[2021-09-26] MEDS: OLANZapine 5 MG TABLET PO SCH ×2 (08:18→16:25)
[2021-09-26] MEDS: SitaGLIPtin PHOSPHATE 25 MG TABLET PO SCH (08:18)
[2021-09-26 11:42] LABS: GLUCOMETER DEV NAME(LOC) 3E.I 2; GLUCOSE,POINT OF CARE 206 MG/DL (70-110)
[2021-09-26 17:51] LABS: GLUCOMETER DEV NAME(LOC) 3E.I 2; GLUCOSE,POINT OF CARE 174 MG/DL (70-110)
[2021-09-26 20:51] LABS: GLUCOMETER DEV NAME(LOC) 3E.I 2; GLUCOSE,POINT OF CARE 176 MG/DL (70-110)
[2021-09-27 06:31] LABS: GLUCOMETER DEV NAME(LOC) 3E.I 2; GLUCOSE,POINT OF CARE 175 MG/DL (70-110)
[2021-09-27] MEDS: GlipiZIDE 5 MG TABLET PO SCH (06:41)
[2021-09-27] MEDS: MetFORMIN HCL 500 MG TABLET PO SCH (06:41)
[2021-09-27] MEDS: INSULIN LISPRO 100 UNITS/ML SQ PRN ×2 (06:55→12:00)
[2021-09-27 08:05] VITALS: BP 135/85
[2021-09-27] MEDS: ATORVASTATIN CALCIUM 20 MG TABLET PO SCH (08:37)
[2021-09-27] MEDS: OMEGA-3/DHA/EPA/FISH OIL 1,000 MG CAPSULE PO SCH (08:37)
[2021-09-27] MEDS: FLUoxetine HCL 20 MG CAPSULE PO SCH (08:37)
[2021-09-27] MEDS: SitaGLIPtin PHOSPHATE 25 MG TABLET PO SCH (08:38)
[2021-09-27] MEDS: BACITRACIN 28 GM OINTMENT TP SCH (08:38)
[2021-09-27] MEDS: OLANZapine 5 MG TABLET PO SCH (08:38)
[2021-09-27 09:07] LABS: COVID AG,FIA SOURCE NASAL SWAB
[2021-09-27] MEDS ORDERED: OLAN5TAB52 PO (10:23)
[2021-09-27] MEDS ORDERED: PROZ20 PO (10:23)
[2021-09-27 11:46] LABS: GLUCOMETER DEV NAME(LOC) 3EX.; GLUCOSE,POINT OF CARE 186 MG/DL (70-110)
== END 2021-09-27 12:30 | disposition home or self-care (01) | DRG 750 ==
LOC: EMS 18:10 → 3EX 20:08 → 3EI 09-08 13:15
PROVIDERS: ADMIT Internal Medicine Cardiovascular Disease; ATTEND Psychiatry & Neurology Child & Adolescent Psychiatry
DX: F25.1 Schizoaffective disorder, depressive type (principal); Z59.00 Homelessness unspecified; E11.65 Type 2 diabetes mellitus with hyperglycemia; E78.5 Hyperlipidemia, unspecified; F17.200 Nicotine dependence, unspecified, uncomplicated; I10 Essential (primary) hypertension; Z20.822 Contact with and (suspected) exposure to COVID-19; F19.10 Other psychoactive substance abuse, uncomplicated; K04.7 Periapical abscess without sinus; Z80.9 Family history of malignant neoplasm, unspecified; Z71.6 Tobacco abuse counseling
CPT/HCPCS: 80053; 81001; 82962; 85025; 87086; 99285; G0378; G0480

== ENCOUNTER 2021-12-25 17:38 | Inpatient (IN) | payer MEDICAID ==
[~2021-12-25] VITALS: Ht 172.7 cm; Wt 78.0 kg
[~2021-12-25 17:38] MED LIST changes: -CEPH-558 PO; -GLIP-333 PO; +GLIP5TAB12 PO; +OLAN5TAB52 PO; -OLAN5TAB77 PO; -OMEG-108 PO; +OMEG-135 PO; -PHEN-1103 PO
[2021-12-25] MEDS ORDERED: INSULIN REGULAR, HUMAN 100 UNITS/ML IVP ONE (18:45)
[2021-12-25 19:08] LABS: BASOPHILS % (AUTO) 0.3 % (0.0-2.0); EOSINOPHILS % (AUTO) 1.9 % (1.0-6.0); HEMATOCRIT 38.7 % (36-46); LYMPHOCYTES # (AUTO) 2.4 K/uL (1.0-4.8); LYMPHOCYTES % (AUTO) 31.2 % (22.0-44.0); MEAN CORPUSCULAR HEMOGLOBIN 26.2 pg (26.0-34.0); MEAN CORPUSCULAR HGB CONC 33.5 G/dL (31.0-37.0); MEAN CORPUSCULAR VOLUME 78 fL (80-100); MONOCYTES # (AUTO) 0.1 K/uL (0.1-1.0); MONOCYTES % (AUTO) 1.4 % (2.0-9.0); NEUTROPHILS % (AUTO) 65.2 % (40.0-70.0); PLATELET COUNT (AUTO) 278 K/uL (150-450); RED BLOOD CELL COUNT(AUTO) 4.94 MIL/uL (4.00-5.20); RED CELL DISTRIBUTION WIDTH 14.2 % (11.5-14.5)
[2021-12-25 19:14] LABS: ANION GAP 4 mmol/L (8-16); CALCIUM, TOTAL 9.4 mg/dL (8.8-10.5); CARBON DIOXIDE 31 mmol/L (22-29); CHLORIDE 100 mmol/L (98-107); CREATININE 0.75 mg/dL (0.60-1.30); GLUCOSE,RANDOM 377 mg/dL (70-110); POTASSIUM 3.5 mmol/L (3.5-5.1); SODIUM SERUM 135 mmol/L (136-145); UREA NITROGEN, BLOOD 9 mg/dL (7-18)
[2021-12-25 19:16] LABS: GLOMERULAR FILTR. RATE CALC > 60 mL/min (>60)
[2021-12-25 19:21] LABS: ALANINE AMINOTRANSFERASE 19 U/L (12-78); ALBUMIN 3.5 g/dL (3.4-5.0); ALKALINE PHOSPHATASE 98 U/L (46-116); ASPARTATE AMINOTRANSFERASE 12 U/L (15-37); BILIRUBIN,TOTAL 0.3 mg/dL (0.1-1.0)
[2021-12-25 19:30] LABS: COVID AG,FIA SOURCE NASOPHARYNGEAL
[2021-12-25 19:30] LABS: ACETONE,BLOOD NEGATIVE (NEGATIVE)
[2021-12-25 21:01] LABS: GLUCOSE,POINT OF CARE 88 MG/DL (70-110)
[2021-12-25] MEDS ORDERED: HALOPERIDOL 5 MG TABLET PO PRN (21:15)
[2021-12-25] MEDS ORDERED: LORazepam 2 MG TABLET PO PRN (21:15)
[2021-12-25] MEDS ORDERED: ZOLPIDEM TARTRATE 10 MG TABLET PO PRN (21:15)
[2021-12-26 03:11] LABS: GLUCOMETER DEV NAME(LOC) BV3N.; GLUCOSE,POINT OF CARE 227 MG/DL (70-110)
[2021-12-26 03:17] VITALS: BP 101/71
[2021-12-26 03:18] VITALS: BP 101/71
[2021-12-26 04:46] VITALS: BP 102/75
[2021-12-26 17:25] VITALS: BP 110/64
[2021-12-26] MEDS ORDERED: OMEPRAZOLE 20 MG CAPSULE PO PRN (18:45)
[2021-12-26] MEDS ORDERED: ONDANSETRON HCL 4 MG TABLET PO PRN (18:45)
[2021-12-26] MEDS ORDERED: IBUPROFEN 600 MG TABLET PO PRN (18:45)
[2021-12-26] MEDS ORDERED: GLUCAGON,HUMAN RECOMBINANT 1 MG VIAL IM PRN (18:45)
[2021-12-26] MEDS ORDERED: LOPERAMIDE HCL 2 MG CAPSULE PO PRN (18:45)
[2021-12-26] MEDS ORDERED: ALBUTEROL SULFATE HFA 90 MCG/PUFF 8 GM INHALER IH PRN (18:45)
[2021-12-26] MEDS ORDERED: ACETAMINOPHEN 325 MG TABLET PO PRN (18:45)
[2021-12-26] MEDS ORDERED: PETROLATUM,WHITE 28 GM JELLY TP PRN (18:45)
[2021-12-26] MEDS ORDERED: MAGNESIUM HYDROXIDE SUSPENSION 30 ML UDCUP PO PRN (18:45)
[2021-12-26] MEDS ORDERED: DOCUSATE SODIUM 100 MG CAPSULE PO PRN (18:45)
[2021-12-26] MEDS ORDERED: BENZOCAINE/MENTHOL LOZENGE PO PRN (18:45)
[2021-12-26] MEDS ORDERED: BACITRACIN 28 GM OINTMENT TP PRN (18:45)
[2021-12-26] MEDS ORDERED: CloNIDine HCL 0.1 MG TABLET PO PRN (18:45)
[2021-12-26] MEDS ORDERED: MAG HYDROX/AL HYDROX/SIMETH ES 30 ML SUSPENSION UDCUP PO PRN (18:45)
[2021-12-26 21:56] VITALS: BP 106/72
[2021-12-26] MEDS: INSULIN LISPRO 100 UNITS/ML SQ PRN (22:30)
[2021-12-26 22:36] LABS: GLUCOMETER DEV NAME(LOC) BV3S.; GLUCOSE,POINT OF CARE 335 MG/DL (70-110)
[2021-12-27 05:27] VITALS: BP 108/74
[2021-12-27] MEDS: INSULIN LISPRO 100 UNITS/ML SQ PRN ×4 (06:00→22:14)
[2021-12-27 06:02] LABS: GLUCOMETER DEV NAME(LOC) BV3S.; GLUCOSE,POINT OF CARE 235 MG/DL (70-110)
[2021-12-27] MEDS: MetFORMIN HCL 500 MG TABLET PO SCH ×2 (06:03→18:31)
[2021-12-27] MEDS: GlipiZIDE 5 MG TABLET PO SCH ×2 (06:03→18:30)
[2021-12-27 08:19] VITALS: BP 107/64
[2021-12-27] MEDS: OMEGA-3/DHA/EPA/FISH OIL 1,000 MG CAPSULE PO SCH (09:47)
[2021-12-27] MEDS: ATORVASTATIN CALCIUM 20 MG TABLET PO SCH (09:47)
[2021-12-27 12:11] LABS: GLUCOMETER DEV NAME(LOC) BV3S.; GLUCOSE,POINT OF CARE 264 MG/DL (70-110)
[2021-12-27 18:41] LABS: GLUCOMETER DEV NAME(LOC) BV3S.; GLUCOSE,POINT OF CARE 360 MG/DL (70-110)
[2021-12-27] MEDS: LURASIDONE HCL 80 MG TABLET PO SCH (21:34)
[2021-12-27 22:11] LABS: GLUCOMETER DEV NAME(LOC) BV3S.; GLUCOSE,POINT OF CARE 240 MG/DL (70-110)
[2021-12-28 03:10] VITALS: BP 128/82
[2021-12-28] MEDS: GlipiZIDE 5 MG TABLET PO SCH ×2 (06:30→16:09)
[2021-12-28] MEDS: MetFORMIN HCL 500 MG TABLET PO SCH ×2 (06:30→16:09)
[2021-12-28 06:36] LABS: GLUCOMETER DEV NAME(LOC) BV3S.; GLUCOSE,POINT OF CARE 242 MG/DL (70-110)
[2021-12-28] MEDS: INSULIN LISPRO 100 UNITS/ML SQ PRN ×4 (06:36→21:08)
[2021-12-28 08:33] VITALS: BP 120/74
[2021-12-28] MEDS: OMEGA-3/DHA/EPA/FISH OIL 1,000 MG CAPSULE PO SCH (08:35)
[2021-12-28] MEDS: ATORVASTATIN CALCIUM 20 MG TABLET PO SCH (08:35)
[2021-12-28 12:17] LABS: GLUCOMETER DEV NAME(LOC) BV3S.; GLUCOSE,POINT OF CARE 263 MG/DL (70-110)
[2021-12-28 16:56] LABS: GLUCOMETER DEV NAME(LOC) BV3S.; GLUCOSE,POINT OF CARE 260 MG/DL (70-110)
[2021-12-28] MEDS: LURASIDONE HCL 80 MG TABLET PO SCH (20:27)
[2021-12-28 20:41] LABS: GLUCOMETER DEV NAME(LOC) BV3S.; GLUCOSE,POINT OF CARE 236 MG/DL (70-110)
[2021-12-29] MEDS: GlipiZIDE 5 MG TABLET PO SCH ×2 (06:34→16:12)
[2021-12-29] MEDS: MetFORMIN HCL 500 MG TABLET PO SCH ×2 (06:35→16:12)
[2021-12-29 06:41] LABS: GLUCOMETER DEV NAME(LOC) BV3S.; GLUCOSE,POINT OF CARE 210 MG/DL (70-110)
[2021-12-29] MEDS: INSULIN LISPRO 100 UNITS/ML SQ PRN ×3 (06:50→20:36)
[2021-12-29] MEDS: ATORVASTATIN CALCIUM 20 MG TABLET PO SCH (08:07)
[2021-12-29] MEDS: OMEGA-3/DHA/EPA/FISH OIL 1,000 MG CAPSULE PO SCH (08:07)
[2021-12-29 08:24] VITALS: BP 102/60
[2021-12-29 12:01] LABS: GLUCOMETER DEV NAME(LOC) BV3S.; GLUCOSE,POINT OF CARE 154 MG/DL (70-110)
[2021-12-29 16:31] LABS: GLUCOMETER DEV NAME(LOC) BV3S.; GLUCOSE,POINT OF CARE 235 MG/DL (70-110)
[2021-12-29 20:06] LABS: GLUCOMETER DEV NAME(LOC) BV3S.; GLUCOSE,POINT OF CARE 195 MG/DL (70-110)
[2021-12-29 20:30] VITALS: BP 109/69
[2021-12-29] MEDS: LURASIDONE HCL 80 MG TABLET PO SCH (20:36)
[2021-12-30] MEDS: GlipiZIDE 5 MG TABLET PO SCH ×2 (06:29→16:35)
[2021-12-30] MEDS: INSULIN LISPRO 100 UNITS/ML SQ PRN ×3 (06:34→16:38)
[2021-12-30] MEDS: MetFORMIN HCL 500 MG TABLET PO SCH ×2 (06:45→16:36)
[2021-12-30 06:46] LABS: GLUCOMETER DEV NAME(LOC) BV2X.2; GLUCOSE,POINT OF CARE 207 MG/DL (70-110)
[2021-12-30 07:15] LABS: CHOL/HDL RATIO 2.4 (3.9-5.7)
[2021-12-30] MEDS: ATORVASTATIN CALCIUM 20 MG TABLET PO SCH (08:23)
[2021-12-30] MEDS: OMEGA-3/DHA/EPA/FISH OIL 1,000 MG CAPSULE PO SCH (08:24)
[2021-12-30 08:51] VITALS: BP 97/60
[2021-12-30 10:46] LABS: GLUCOMETER DEV NAME(LOC) BV2X.2; GLUCOSE,POINT OF CARE 206 MG/DL (70-110)
[2021-12-30 17:36] LABS: GLUCOMETER DEV NAME(LOC) BV2X.2; GLUCOSE,POINT OF CARE 243 MG/DL (70-110)
[2021-12-30 20:26] VITALS: BP 116/71
[2021-12-30] MEDS: LURASIDONE HCL 80 MG TABLET PO SCH (20:35)
[2021-12-31] MEDS: MetFORMIN HCL 500 MG TABLET PO SCH ×2 (06:37→16:57)
[2021-12-31] MEDS: GlipiZIDE 5 MG TABLET PO SCH ×2 (06:37→16:57)
[2021-12-31 06:42] LABS: GLUCOMETER DEV NAME(LOC) BV2X.2; GLUCOSE,POINT OF CARE 209 MG/DL (70-110)
[2021-12-31] MEDS: INSULIN LISPRO 100 UNITS/ML SQ PRN ×4 (06:46→20:37)
[2021-12-31 08:25] VITALS: BP 122/73
[2021-12-31] MEDS: ATORVASTATIN CALCIUM 20 MG TABLET PO SCH (08:57)
[2021-12-31] MEDS: OMEGA-3/DHA/EPA/FISH OIL 1,000 MG CAPSULE PO SCH (08:57)
[2021-12-31 12:21] LABS: GLUCOMETER DEV NAME(LOC) BV2X.2; GLUCOSE,POINT OF CARE 241 MG/DL (70-110)
[2021-12-31 17:11] LABS: GLUCOMETER DEV NAME(LOC) BV2X.2; GLUCOSE,POINT OF CARE 201 MG/DL (70-110)
[2021-12-31 20:29] VITALS: BP 105/64
[2021-12-31] MEDS: LURASIDONE HCL 80 MG TABLET PO SCH (20:31)
[2021-12-31 21:26] LABS: GLUCOMETER DEV NAME(LOC) BV2X.2; GLUCOSE,POINT OF CARE 204 MG/DL (70-110)
[2022-01-01 06:26] LABS: GLUCOMETER DEV NAME(LOC) BV2X.2; GLUCOSE,POINT OF CARE 214 MG/DL (70-110)
[2022-01-01] MEDS: GlipiZIDE 5 MG TABLET PO SCH ×2 (06:52→16:54)
[2022-01-01] MEDS: MetFORMIN HCL 500 MG TABLET PO SCH ×2 (06:53→16:54)
[2022-01-01] MEDS: INSULIN LISPRO 100 UNITS/ML SQ PRN ×4 (06:54→20:30)
[2022-01-01] MEDS: ATORVASTATIN CALCIUM 20 MG TABLET PO SCH (08:23)
[2022-01-01] MEDS: OMEGA-3/DHA/EPA/FISH OIL 1,000 MG CAPSULE PO SCH (08:23)
[2022-01-01 08:34] VITALS: BP 109/74
[2022-01-01 11:21] LABS: GLUCOMETER DEV NAME(LOC) BV2X.2; GLUCOSE,POINT OF CARE 277 MG/DL (70-110)
[2022-01-01 17:11] LABS: GLUCOMETER DEV NAME(LOC) BV2X.2; GLUCOSE,POINT OF CARE 227 MG/DL (70-110)
[2022-01-01 20:23] VITALS: BP 136/73
[2022-01-01] MEDS: LURASIDONE HCL 80 MG TABLET PO SCH (20:24)
[2022-01-01 20:56] LABS: GLUCOMETER DEV NAME(LOC) BV2X.2; GLUCOSE,POINT OF CARE 179 MG/DL (70-110)
[2022-01-02] MEDS: GlipiZIDE 5 MG TABLET PO SCH ×2 (06:42→16:15)
[2022-01-02] MEDS: MetFORMIN HCL 500 MG TABLET PO SCH ×2 (06:42→16:15)
[2022-01-02] MEDS: INSULIN LISPRO 100 UNITS/ML SQ PRN ×4 (06:45→20:02)
[2022-01-02 09:31] VITALS: BP 114/69
[2022-01-02 10:06] LABS: GLUCOMETER DEV NAME(LOC) BV2X.2; GLUCOSE,POINT OF CARE 208 MG/DL (70-110)
[2022-01-02] MEDS: OMEGA-3/DHA/EPA/FISH OIL 1,000 MG CAPSULE PO SCH (10:26)
[2022-01-02] MEDS: ATORVASTATIN CALCIUM 20 MG TABLET PO SCH (10:26)
[2022-01-02 11:46] LABS: GLUCOMETER DEV NAME(LOC) BV2X.2; GLUCOSE,POINT OF CARE 220 MG/DL (70-110)
[2022-01-02] MEDS: LURASIDONE HCL 80 MG TABLET PO SCH (20:00)
[2022-01-02 20:15] LABS: GLUCOMETER DEV NAME(LOC) BV2X.2; GLUCOSE,POINT OF CARE 263 MG/DL (70-110)
[2022-01-02 20:15] LABS: GLUCOMETER DEV NAME(LOC) BV2X.2; GLUCOSE,POINT OF CARE 169 MG/DL (70-110)
[2022-01-02 20:19] VITALS: BP 102/67
[2022-01-03 06:31] LABS: GLUCOMETER DEV NAME(LOC) BV2X.2; GLUCOSE,POINT OF CARE 221 MG/DL (70-110)
[2022-01-03] MEDS: MetFORMIN HCL 500 MG TABLET PO SCH ×2 (06:32→18:04)
[2022-01-03] MEDS: GlipiZIDE 5 MG TABLET PO SCH ×2 (06:32→17:36)
[2022-01-03] MEDS: INSULIN LISPRO 100 UNITS/ML SQ PRN ×4 (06:35→22:14)
[2022-01-03 08:37] VITALS: BP 98/63
[2022-01-03] MEDS: OMEGA-3/DHA/EPA/FISH OIL 1,000 MG CAPSULE PO SCH (09:03)
[2022-01-03] MEDS: ATORVASTATIN CALCIUM 20 MG TABLET PO SCH (09:03)
[2022-01-03 14:00] LABS: GLUCOMETER DEV NAME(LOC) POC.BV
[2022-01-03 16:36] LABS: GLUCOMETER DEV NAME(LOC) BV2X.2; GLUCOSE,POINT OF CARE 260 MG/DL (70-110)
[2022-01-03 20:50] VITALS: BP 101/81
[2022-01-03] MEDS: LURASIDONE HCL 80 MG TABLET PO SCH (21:35)
[2022-01-04 06:07] LABS: GLUCOMETER DEV NAME(LOC) BV2X.2; GLUCOSE,POINT OF CARE 146 MG/DL (70-110)
[2022-01-04] MEDS: MetFORMIN HCL 500 MG TABLET PO SCH ×2 (06:46→16:27)
[2022-01-04] MEDS: GlipiZIDE 5 MG TABLET PO SCH ×2 (06:46→16:26)
[2022-01-04] MEDS: ATORVASTATIN CALCIUM 20 MG TABLET PO SCH (08:46)
[2022-01-04] MEDS: OMEGA-3/DHA/EPA/FISH OIL 1,000 MG CAPSULE PO SCH (08:46)
[2022-01-04 09:01] VITALS: BP 113/66
[2022-01-04 11:10] LABS: GLUCOMETER DEV NAME(LOC) BV2X.2; GLUCOSE,POINT OF CARE 252 MG/DL (70-110)
[2022-01-04] MEDS: INSULIN LISPRO 100 UNITS/ML SQ PRN ×3 (11:44→20:16)
[2022-01-04 17:21] LABS: GLUCOMETER DEV NAME(LOC) BV2X.2; GLUCOSE,POINT OF CARE 165 MG/DL (70-110)
[2022-01-04] MEDS: LURASIDONE HCL 80 MG TABLET PO SCH (20:07)
[2022-01-04 20:46] LABS: GLUCOMETER DEV NAME(LOC) BV2X.2; GLUCOSE,POINT OF CARE 220 MG/DL (70-110)
[2022-01-04 20:50] VITALS: BP 133/74
[2022-01-05 06:17] LABS: GLUCOMETER DEV NAME(LOC) BV2X.2; GLUCOSE,POINT OF CARE 186 MG/DL (70-110)
[2022-01-05] MEDS: GlipiZIDE 5 MG TABLET PO SCH ×2 (06:40→16:44)
[2022-01-05] MEDS: MetFORMIN HCL 500 MG TABLET PO SCH ×2 (06:40→16:44)
[2022-01-05] MEDS: INSULIN LISPRO 100 UNITS/ML SQ PRN ×3 (06:41→16:55)
[2022-01-05 08:22] VITALS: BP 109/67
[2022-01-05] MEDS: ATORVASTATIN CALCIUM 20 MG TABLET PO SCH (09:08)
[2022-01-05] MEDS: OMEGA-3/DHA/EPA/FISH OIL 1,000 MG CAPSULE PO SCH (09:09)
[2022-01-05 17:06] LABS: GLUCOMETER DEV NAME(LOC) BV2X.2; GLUCOSE,POINT OF CARE 203 MG/DL (70-110)
[2022-01-05] MEDS: LURASIDONE HCL 80 MG TABLET PO SCH (20:34)
[2022-01-05 20:37] VITALS: BP 100/61
[2022-01-05 21:01] LABS: GLUCOMETER DEV NAME(LOC) BV2X.2; GLUCOSE,POINT OF CARE 116 MG/DL (70-110)
[2022-01-06] MEDS: GlipiZIDE 5 MG TABLET PO SCH ×2 (06:38→16:06)
[2022-01-06] MEDS: MetFORMIN HCL 500 MG TABLET PO SCH ×2 (06:39→16:06)
[2022-01-06 06:46] LABS: GLUCOMETER DEV NAME(LOC) BV2X.2; GLUCOSE,POINT OF CARE 196 MG/DL (70-110)
[2022-01-06] MEDS: INSULIN LISPRO 100 UNITS/ML SQ PRN ×4 (06:46→20:21)
[2022-01-06 08:24] VITALS: BP 123/73
[2022-01-06] MEDS: OMEGA-3/DHA/EPA/FISH OIL 1,000 MG CAPSULE PO SCH (08:37)
[2022-01-06] MEDS: ATORVASTATIN CALCIUM 20 MG TABLET PO SCH (08:38)
[2022-01-06 11:21] LABS: GLUCOMETER DEV NAME(LOC) BV2X.2; GLUCOSE,POINT OF CARE 179 MG/DL (70-110)
[2022-01-06 17:01] LABS: GLUCOMETER DEV NAME(LOC) BV2X.2; GLUCOSE,POINT OF CARE 178 MG/DL (70-110)
[2022-01-06] MEDS: LURASIDONE HCL 80 MG TABLET PO SCH (20:22)
[2022-01-06 20:26] VITALS: BP 119/78
[2022-01-07] MEDS: MetFORMIN HCL 500 MG TABLET PO SCH (06:31)
[2022-01-07] MEDS: GlipiZIDE 5 MG TABLET PO SCH (06:31)
[2022-01-07 06:41] LABS: GLUCOMETER DEV NAME(LOC) BV2X.2; GLUCOSE,POINT OF CARE 177 MG/DL (70-110)
[2022-01-07] MEDS: INSULIN LISPRO 100 UNITS/ML SQ PRN ×2 (06:47→11:16)
[2022-01-07 08:13] VITALS: BP 106/72
[2022-01-07] MEDS: ATORVASTATIN CALCIUM 20 MG TABLET PO SCH (08:13)
[2022-01-07] MEDS: OMEGA-3/DHA/EPA/FISH OIL 1,000 MG CAPSULE PO SCH (08:13)
[2022-01-07] MEDS ORDERED: LURA80TA2 PO (09:41)
[2022-01-07 11:31] LABS: GLUCOMETER DEV NAME(LOC) BV2X.2; GLUCOSE,POINT OF CARE 235 MG/DL (70-110)
== END 2022-01-07 13:15 | disposition home or self-care (01) | DRG 750 ==
LOC: EMS 17:38 → B3A 12-26 01:06 → B2S 12-29 22:03
PROVIDERS: ADMIT Psychiatry & Neurology Psychiatry; ATTEND Psychiatry & Neurology Psychiatry
DX: F25.1 Schizoaffective disorder, depressive type (principal); E86.0 Dehydration; R45.851 Suicidal ideations; E11.65 Type 2 diabetes mellitus with hyperglycemia; Z20.822 Contact with and (suspected) exposure to COVID-19; E78.5 Hyperlipidemia, unspecified; I10 Essential (primary) hypertension; Z59.02 Unsheltered homelessness; Z63.8 Other specified problems related to primary support group; Z72.0 Tobacco use; Z91.14 Patient's other noncompliance with medication regimen
CPT/HCPCS: 80053; 80061; 82009; 82962; 84484; 84703; 85025; 99285; G0480; J1815

== ENCOUNTER 2022-02-09 18:15 | Inpatient (IN) | payer MEDICAID ==
[~2022-02-09] VITALS: Ht 172.7 cm; Wt 79.8 kg
[~2022-02-09 18:15] MED LIST changes: +LURA80TA2 PO; -OLAN5TAB52 PO; -PROZ20 PO; -SITA25 PO
[2022-02-09] MEDS ORDERED: LORazepam 2 MG TABLET PO PRN (19:15)
[2022-02-09] MEDS ORDERED: ZOLPIDEM TARTRATE 10 MG TABLET PO PRN (19:15)
[2022-02-09] MEDS ORDERED: HALOPERIDOL 5 MG TABLET PO PRN (19:15)
[2022-02-09 19:43] VITALS: BP 109/66
[2022-02-09] MEDS ORDERED: INFLUENZA VIRUS VACCINE QVS 2022-23 (6MO+)/PF 60 MCG/0.5 ML SYRINGE IM. ONE (23:00)
[2022-02-10 05:46] VITALS: BP 105/62
[2022-02-10 07:56] LABS: BASOPHILS % (AUTO) 0.3 % (0.0-2.0); EOSINOPHILS % (AUTO) 2.8 % (1.0-6.0); HEMATOCRIT 37.9 % (36-46); HEMOGLOBIN 12.3 g/dL (12.0-16.0); LYMPHOCYTES # (AUTO) 2.5 K/uL (1.0-4.8); LYMPHOCYTES % (AUTO) 36.9 % (22.0-44.0); MEAN CORPUSCULAR HEMOGLOBIN 26.7 pg (26.0-34.0); MEAN CORPUSCULAR HGB CONC 32.6 G/dL (31.0-37.0); MEAN CORPUSCULAR VOLUME 82 fL (80-100); MONOCYTES # (AUTO) 0.4 K/uL (0.1-1.0); MONOCYTES % (AUTO) 6.4 % (2.0-9.0); NEUTROPHILS # (AUTO) 3.7 K/uL (1.8-7.7); NEUTROPHILS % (AUTO) 53.6 % (40.0-70.0); PLATELET COUNT (AUTO) 246 K/uL (150-450); RED BLOOD CELL COUNT(AUTO) 4.63 MIL/uL (4.00-5.20); RED CELL DISTRIBUTION WIDTH 15.1 % (11.5-14.5)
[2022-02-10 08:04] LABS: HEMOGLOBIN A1C 9.7 % (3.8-5.6)
[2022-02-10 08:10] VITALS: BP 109/69
[2022-02-10 08:38] LABS: ALANINE AMINOTRANSFERASE 20 U/L (12-78); ALBUMIN 3.2 g/dL (3.4-5.0); ALKALINE PHOSPHATASE 75 U/L (46-116); ANION GAP 4 mmol/L (8-16); ASPARTATE AMINOTRANSFERASE 11 U/L (15-37); BILIRUBIN,TOTAL 0.3 mg/dL (0.1-1.0); CARBON DIOXIDE 29 mmol/L (22-29); CHLORIDE 106 mmol/L (98-107); CHOL/HDL RATIO 3.1 (3.9-5.7); CHOLESTEROL 121 mg/dL (131-200); CREATININE 0.59 mg/dL (0.60-1.30); GLOMERULAR FILTR. RATE CALC > 60 mL/min (>60); GLUCOSE,RANDOM 229 mg/dL (70-110); HDL CHOLESTEROL 39 mg/dL (40-60); LDL CHOL (CALC.) 69 mg/dL (0-130); POTASSIUM 3.8 mmol/L (3.5-5.1); SODIUM SERUM 139 mmol/L (136-145); THYROID STIMULATING HORMONE 0.39 uIU/mL (0.36-3.74); TOTAL PROTEIN, SERUM 6.4 g/dL (6.4-8.2); TRIGLYCERIDES 66 mg/dL (15-150); UREA NITROGEN, BLOOD 13 mg/dL (7-18)
[2022-02-10] MEDS ORDERED: ALBUTEROL SULFATE HFA 90 MCG/PUFF 8 GM INHALER IH PRN (09:30)
[2022-02-10] MEDS ORDERED: ONDANSETRON HCL 4 MG TABLET PO PRN (09:30)
[2022-02-10] MEDS ORDERED: OMEPRAZOLE 20 MG CAPSULE PO PRN (09:30)
[2022-02-10] MEDS ORDERED: BACITRACIN 28 GM OINTMENT TP PRN (09:30)
[2022-02-10] MEDS ORDERED: CloNIDine HCL 0.1 MG TABLET PO PRN (09:30)
[2022-02-10] MEDS ORDERED: PETROLATUM,WHITE 28 GM JELLY TP PRN (09:30)
[2022-02-10] MEDS ORDERED: MAGNESIUM HYDROXIDE SUSPENSION 30 ML UDCUP PO PRN (09:30)
[2022-02-10] MEDS ORDERED: BENZOCAINE/MENTHOL LOZENGE PO PRN (09:30)
[2022-02-10] MEDS ORDERED: MAG HYDROX/AL HYDROX/SIMETH ES 30 ML SUSPENSION UDCUP PO PRN (09:30)
[2022-02-10] MEDS ORDERED: ACETAMINOPHEN 325 MG TABLET PO PRN (09:30)
[2022-02-10] MEDS ORDERED: DOCUSATE SODIUM 100 MG CAPSULE PO PRN (09:30)
[2022-02-10] MEDS ORDERED: DEXTROSE 50%-WATER 25 GM/50 ML SYRINGE IVP PRN (09:30)
[2022-02-10] MEDS ORDERED: LOPERAMIDE HCL 2 MG CAPSULE PO PRN (09:30)
[2022-02-10] MEDS ORDERED: IBUPROFEN 600 MG TABLET PO PRN (09:30)
[2022-02-10] MEDS: ATORVASTATIN CALCIUM 20 MG TABLET PO SCH (10:36)
[2022-02-10 11:21] LABS: GLUCOMETER DEV NAME(LOC) BV2S.; GLUCOSE,POINT OF CARE 249 MG/DL (70-110)
[2022-02-10] MEDS: INSULIN LISPRO 100 UNITS/ML SQ PRN ×3 (11:31→20:36)
[2022-02-10] MEDS: GlipiZIDE 5 MG TABLET PO SCH (16:35)
[2022-02-10 16:52] VITALS: BP 110/67
[2022-02-10 17:06] LABS: GLUCOMETER DEV NAME(LOC) BV2S.; GLUCOSE,POINT OF CARE 182 MG/DL (70-110)
[2022-02-10] MEDS: LURASIDONE HCL 80 MG TABLET PO SCH (17:07)
[2022-02-10] MEDS: MetFORMIN HCL 500 MG TABLET PO SCH (17:07)
[2022-02-10 20:56] LABS: GLUCOMETER DEV NAME(LOC) BV2S.; GLUCOSE,POINT OF CARE 210 MG/DL (70-110)
[2022-02-11 06:16] LABS: GLUCOMETER DEV NAME(LOC) BV2S.; GLUCOSE,POINT OF CARE 175 MG/DL (70-110)
[2022-02-11] MEDS: GlipiZIDE 5 MG TABLET PO SCH ×2 (06:46→16:15)
[2022-02-11] MEDS: MetFORMIN HCL 500 MG TABLET PO SCH ×2 (06:46→17:26)
[2022-02-11] MEDS: INSULIN LISPRO 100 UNITS/ML SQ PRN ×4 (06:48→20:36)
[2022-02-11 08:23] VITALS: BP 102/64
[2022-02-11] MEDS: ATORVASTATIN CALCIUM 20 MG TABLET PO SCH (09:00)
[2022-02-11] MEDS: RisperiDONE 2 MG TABLET PO SCH ×2 (09:00→17:26)
[2022-02-11] MEDS: OMEGA-3/DHA/EPA/FISH OIL 1,000 MG CAPSULE PO SCH (09:00)
[2022-02-11 11:25] LABS: GLUCOMETER DEV NAME(LOC) BV2S.; GLUCOSE,POINT OF CARE 147 MG/DL (70-110)
[2022-02-11 17:06] LABS: GLUCOMETER DEV NAME(LOC) BV2S.; GLUCOSE,POINT OF CARE 137 MG/DL (70-110)
[2022-02-11] MEDS: MUPIROCIN CALCIUM 2% 22 GM OINTMENT NASAL SCH (17:26)
[2022-02-11] MEDS: LURASIDONE HCL 80 MG TABLET PO SCH (17:26)
[2022-02-11 20:56] LABS: GLUCOMETER DEV NAME(LOC) BV2S.; GLUCOSE,POINT OF CARE 171 MG/DL (70-110)
[2022-02-12 06:26] LABS: GLUCOMETER DEV NAME(LOC) BV2S.; GLUCOSE,POINT OF CARE 185 MG/DL (70-110)
[2022-02-12] MEDS: GlipiZIDE 5 MG TABLET PO SCH ×2 (06:53→16:28)
[2022-02-12] MEDS: MetFORMIN HCL 500 MG TABLET PO SCH ×2 (06:53→16:28)
[2022-02-12] MEDS: INSULIN LISPRO 100 UNITS/ML SQ PRN ×4 (06:55→20:25)
[2022-02-12 08:19] VITALS: BP 105/61
[2022-02-12] MEDS: RisperiDONE 2 MG TABLET PO SCH ×2 (09:07→16:28)
[2022-02-12] MEDS: ATORVASTATIN CALCIUM 20 MG TABLET PO SCH (09:07)
[2022-02-12] MEDS: OMEGA-3/DHA/EPA/FISH OIL 1,000 MG CAPSULE PO SCH (09:07)
[2022-02-12] MEDS: MUPIROCIN CALCIUM 2% 22 GM OINTMENT NASAL SCH ×2 (09:12→16:31)
[2022-02-12 11:21] LABS: GLUCOMETER DEV NAME(LOC) BV2S.; GLUCOSE,POINT OF CARE 168 MG/DL (70-110)
[2022-02-12] MEDS: LURASIDONE HCL 80 MG TABLET PO SCH (16:28)
[2022-02-12 16:47] LABS: GLUCOMETER DEV NAME(LOC) BV2S.; GLUCOSE,POINT OF CARE 130 MG/DL (70-110)
[2022-02-12 20:05] VITALS: BP 109/60
[2022-02-12 20:41] LABS: GLUCOMETER DEV NAME(LOC) BV2S.; GLUCOSE,POINT OF CARE 195 MG/DL (70-110)
[2022-02-12] MEDS ORDERED: GLUCAGON,HUMAN RECOMBINANT 1 MG VIAL IM PRN (21:00)
[2022-02-13 03:17] VITALS: BP 94/65
[2022-02-13] MEDS: INSULIN LISPRO 100 UNITS/ML SQ PRN ×4 (06:21→20:35)
[2022-02-13] MEDS: GlipiZIDE 5 MG TABLET PO SCH ×2 (06:21→16:22)
[2022-02-13] MEDS: MetFORMIN HCL 500 MG TABLET PO SCH ×2 (06:22→17:00)
[2022-02-13 06:31] LABS: GLUCOMETER DEV NAME(LOC) BV2S.; GLUCOSE,POINT OF CARE 168 MG/DL (70-110)
[2022-02-13 08:09] VITALS: BP 109/66
[2022-02-13] MEDS: RisperiDONE 2 MG TABLET PO SCH ×2 (08:32→17:00)
[2022-02-13] MEDS: ATORVASTATIN CALCIUM 20 MG TABLET PO SCH (08:32)
[2022-02-13] MEDS: OMEGA-3/DHA/EPA/FISH OIL 1,000 MG CAPSULE PO SCH (08:32)
[2022-02-13] MEDS: MUPIROCIN CALCIUM 2% 22 GM OINTMENT NASAL SCH ×2 (08:32→17:01)
[2022-02-13 11:27] LABS: GLUCOMETER DEV NAME(LOC) BV2S.; GLUCOSE,POINT OF CARE 154 MG/DL (70-110)
[2022-02-13 16:36] LABS: GLUCOMETER DEV NAME(LOC) BV2S.; GLUCOSE,POINT OF CARE 139 MG/DL (70-110)
[2022-02-13] MEDS: LURASIDONE HCL 80 MG TABLET PO SCH (17:00)
[2022-02-13 20:17] VITALS: BP 111/61
[2022-02-13 20:31] LABS: GLUCOMETER DEV NAME(LOC) BV2S.; GLUCOSE,POINT OF CARE 184 MG/DL (70-110)
[2022-02-14] MEDS: GlipiZIDE 5 MG TABLET PO SCH ×2 (06:20→16:17)
[2022-02-14] MEDS: MetFORMIN HCL 500 MG TABLET PO SCH ×2 (06:20→17:11)
[2022-02-14] MEDS: INSULIN LISPRO 100 UNITS/ML SQ PRN ×3 (06:21→20:29)
[2022-02-14 06:36] LABS: GLUCOMETER DEV NAME(LOC) BV2S.; GLUCOSE,POINT OF CARE 163 MG/DL (70-110)
[2022-02-14 08:31] VITALS: BP 93/57
[2022-02-14] MEDS: ATORVASTATIN CALCIUM 20 MG TABLET PO SCH (08:47)
[2022-02-14] MEDS: RisperiDONE 2 MG TABLET PO SCH ×2 (08:47→17:11)
[2022-02-14] MEDS: MUPIROCIN CALCIUM 2% 22 GM OINTMENT NASAL SCH ×2 (08:47→17:11)
[2022-02-14] MEDS: OMEGA-3/DHA/EPA/FISH OIL 1,000 MG CAPSULE PO SCH (08:47)
[2022-02-14 11:26] LABS: GLUCOMETER DEV NAME(LOC) BV2S.; GLUCOSE,POINT OF CARE 117 MG/DL (70-110)
[2022-02-14 17:01] LABS: GLUCOMETER DEV NAME(LOC) BV2S.; GLUCOSE,POINT OF CARE 190 MG/DL (70-110)
[2022-02-14] MEDS: LURASIDONE HCL 80 MG TABLET PO SCH (17:11)
[2022-02-14 20:36] VITALS: BP 108/60
[2022-02-14 20:46] LABS: GLUCOMETER DEV NAME(LOC) BV2S.; GLUCOSE,POINT OF CARE 124 MG/DL (70-110)
[2022-02-15 06:27] LABS: GLUCOMETER DEV NAME(LOC) BV2S.; GLUCOSE,POINT OF CARE 171 MG/DL (70-110)
[2022-02-15] MEDS: MetFORMIN HCL 500 MG TABLET PO SCH ×2 (06:54→16:30)
[2022-02-15] MEDS: GlipiZIDE 5 MG TABLET PO SCH ×2 (06:54→16:29)
[2022-02-15] MEDS: INSULIN LISPRO 100 UNITS/ML SQ PRN ×3 (06:54→16:38)
[2022-02-15 08:13] VITALS: BP 109/70
[2022-02-15 08:41] LABS: GLUCOMETER DEV NAME(LOC) POC.BV
[2022-02-15] MEDS: OMEGA-3/DHA/EPA/FISH OIL 1,000 MG CAPSULE PO SCH (08:48)
[2022-02-15] MEDS: ATORVASTATIN CALCIUM 20 MG TABLET PO SCH (08:48)
[2022-02-15] MEDS: RisperiDONE 2 MG TABLET PO SCH ×2 (08:49→16:29)
[2022-02-15] MEDS: MUPIROCIN CALCIUM 2% 22 GM OINTMENT NASAL SCH ×2 (08:49→16:30)
[2022-02-15 11:21] LABS: GLUCOMETER DEV NAME(LOC) BV2S.; GLUCOSE,POINT OF CARE 217 MG/DL (70-110)
[2022-02-15] MEDS: LURASIDONE HCL 80 MG TABLET PO SCH (16:30)
[2022-02-15 16:36] LABS: GLUCOMETER DEV NAME(LOC) BV2S.; GLUCOSE,POINT OF CARE 163 MG/DL (70-110)
[2022-02-15 20:08] VITALS: BP 100/64
[2022-02-15 20:21] LABS: GLUCOMETER DEV NAME(LOC) BV2S.; GLUCOSE,POINT OF CARE 83 MG/DL (70-110)
[2022-02-16 06:26] LABS: GLUCOMETER DEV NAME(LOC) BV2S.; GLUCOSE,POINT OF CARE 158 MG/DL (70-110)
[2022-02-16] MEDS: MetFORMIN HCL 500 MG TABLET PO SCH ×2 (06:30→16:58)
[2022-02-16] MEDS: GlipiZIDE 5 MG TABLET PO SCH ×2 (06:30→16:09)
[2022-02-16] MEDS: INSULIN LISPRO 100 UNITS/ML SQ PRN ×3 (06:31→20:28)
[2022-02-16 08:24] VITALS: BP 109/68
[2022-02-16] MEDS: MUPIROCIN CALCIUM 2% 22 GM OINTMENT NASAL SCH (08:42)
[2022-02-16] MEDS: OMEGA-3/DHA/EPA/FISH OIL 1,000 MG CAPSULE PO SCH (08:42)
[2022-02-16] MEDS: ATORVASTATIN CALCIUM 20 MG TABLET PO SCH (08:42)
[2022-02-16] MEDS: RisperiDONE 2 MG TABLET PO SCH ×2 (08:42→16:58)
[2022-02-16 14:01] LABS: GLUCOMETER DEV NAME(LOC) BV2S.; GLUCOSE,POINT OF CARE 147 MG/DL (70-110)
[2022-02-16 16:46] LABS: GLUCOMETER DEV NAME(LOC) BV2S.; GLUCOSE,POINT OF CARE 238 MG/DL (70-110)
[2022-02-16] MEDS: LURASIDONE HCL 80 MG TABLET PO SCH (16:58)
[2022-02-16 20:07] VITALS: BP 96/67
[2022-02-16 20:41] LABS: GLUCOMETER DEV NAME(LOC) BV2S.; GLUCOSE,POINT OF CARE 158 MG/DL (70-110)
[2022-02-17] MEDS: INSULIN LISPRO 100 UNITS/ML SQ PRN ×3 (06:28→16:47)
[2022-02-17 06:36] LABS: GLUCOMETER DEV NAME(LOC) BV2S.; GLUCOSE,POINT OF CARE 151 MG/DL (70-110)
[2022-02-17] MEDS: MetFORMIN HCL 500 MG TABLET PO SCH ×2 (06:57→16:43)
[2022-02-17] MEDS: GlipiZIDE 5 MG TABLET PO SCH ×2 (06:57→16:11)
[2022-02-17 08:19] VITALS: BP 120/77
[2022-02-17] MEDS: OMEGA-3/DHA/EPA/FISH OIL 1,000 MG CAPSULE PO SCH (08:58)
[2022-02-17] MEDS: RisperiDONE 2 MG TABLET PO SCH ×2 (08:58→16:43)
[2022-02-17] MEDS: ATORVASTATIN CALCIUM 20 MG TABLET PO SCH (08:59)
[2022-02-17 11:16] LABS: GLUCOMETER DEV NAME(LOC) BV2S.; GLUCOSE,POINT OF CARE 171 MG/DL (70-110)
[2022-02-17 16:26] LABS: GLUCOMETER DEV NAME(LOC) BV2S.; GLUCOSE,POINT OF CARE 180 MG/DL (70-110)
[2022-02-17] MEDS: LURASIDONE HCL 80 MG TABLET PO SCH (16:43)
[2022-02-17 20:36] LABS: GLUCOMETER DEV NAME(LOC) BV2S.; GLUCOSE,POINT OF CARE 116 MG/DL (70-110)
[2022-02-17 20:54] VITALS: BP 105/74
[2022-02-17] MEDS ORDERED: LURA80TA2 PO (21:16)
[2022-02-18] MEDS ORDERED: LURA80TA2 PO (03:49)
[2022-02-18 06:26] LABS: GLUCOMETER DEV NAME(LOC) BV2S.; GLUCOSE,POINT OF CARE 160 MG/DL (70-110)
[2022-02-18] MEDS: GlipiZIDE 5 MG TABLET PO SCH (06:40)
[2022-02-18] MEDS: MetFORMIN HCL 500 MG TABLET PO SCH (06:40)
[2022-02-18] MEDS: INSULIN LISPRO 100 UNITS/ML SQ PRN (06:42)
[2022-02-18] MEDS: OMEGA-3/DHA/EPA/FISH OIL 1,000 MG CAPSULE PO SCH (08:08)
[2022-02-18] MEDS: ATORVASTATIN CALCIUM 20 MG TABLET PO SCH (08:08)
[2022-02-18] MEDS: RisperiDONE 2 MG TABLET PO SCH (08:08)
== END 2022-02-18 08:35 | disposition home or self-care (01) | DRG 750 ==
LOC: B2S 19:01
PROVIDERS: ADMIT Psychiatry & Neurology Psychiatry; ATTEND Psychiatry & Neurology Psychiatry
DX: F20.9 Schizophrenia, unspecified (principal); E11.65 Type 2 diabetes mellitus with hyperglycemia; E78.5 Hyperlipidemia, unspecified; I10 Essential (primary) hypertension; G47.00 Insomnia, unspecified; K59.00 Constipation, unspecified; E78.00 Pure hypercholesterolemia, unspecified; F41.9 Anxiety disorder, unspecified; F19.10 Other psychoactive substance abuse, uncomplicated; Z72.0 Tobacco use
CPT/HCPCS: 80053; 80061; 82962; 83036; 84439; 84443; 85025; 87081

== ENCOUNTER 2022-11-16 13:09 | Inpatient (IN) | payer MEDICAID, OTHER ==
[~2022-11-16] VITALS: Ht 167.6 cm; Wt 68.1 kg
[~2022-11-16 13:09] MED LIST changes: +ATOR20TA PO; -ATOR20TA86 PO
[2022-11-16 14:05] LABS: BASOPHILS % (AUTO) 0.4 % (0.0-2.0); EOSINOPHILS % (AUTO) 2.3 % (1.0-6.0); HEMATOCRIT 31.8 % (36-46); HEMOGLOBIN 10.5 g/dL (12.0-16.0); LYMPHOCYTES # (AUTO) 2.1 K/uL (1.0-4.8); LYMPHOCYTES % (AUTO) 39.4 % (22.0-44.0); MEAN CORPUSCULAR HGB CONC 32.9 G/dL (31.0-37.0); MEAN CORPUSCULAR VOLUME 79 fL (80-100); MONOCYTES # (AUTO) 0.3 K/uL (0.1-1.0); MONOCYTES % (AUTO) 5.2 % (2.0-9.0); NEUTROPHILS # (AUTO) 2.8 K/uL (1.8-7.7); NEUTROPHILS % (AUTO) 52.7 % (40.0-70.0); PLATELET COUNT (AUTO) 231 K/uL (150-450); RED BLOOD CELL COUNT(AUTO) 4.02 MIL/uL (4.00-5.20); RED CELL DISTRIBUTION WIDTH 15.2 % (11.5-14.5)
[2022-11-16 14:15] LABS: ANION GAP 3 mmol/L (8-16); CALCIUM, TOTAL 8.9 mg/dL (8.8-10.5); CARBON DIOXIDE 29 mmol/L (22-29); CHLORIDE 100 mmol/L (98-107); CREATININE 0.55 mg/dL (0.60-1.30); GLOMERULAR FILTR. RATE CALC > 60 mL/min (>60); GLUCOSE,RANDOM 263 mg/dL (70-110); POTASSIUM 3.6 mmol/L (3.5-5.1); SODIUM SERUM 132 mmol/L (136-145)
[2022-11-16 14:21] LABS: ALANINE AMINOTRANSFERASE 12 U/L (12-78); ALBUMIN 3.2 g/dL (3.4-5.0); ALKALINE PHOSPHATASE 80 U/L (46-116); ASPARTATE AMINOTRANSFERASE 10 U/L (15-37); BILIRUBIN,TOTAL 0.2 mg/dL (0.1-1.0); TOTAL PROTEIN, SERUM 6.6 g/dL (6.4-8.2)
[2022-11-16 14:49] LABS: AMPHET/METH SCREEN,URINE POSITIVE (NEGATIVE); BARBITURATE SCREEN, URINE NEGATIVE (NEGATIVE); BENZODIAZEPINES SCREEN,URINE NEGATIVE (NEGATIVE); CANNABINOID SCREEN,URINE NEGATIVE (NEGATIVE); COCAINE SCREEN,URINE NEGATIVE (NEGATIVE); METHADONE SCREEN, URINE NEGATIVE (NEGATIVE); PHENCYCLIDINE SCREEN,URINE NEGATIVE (NEGATIVE)
[2022-11-16 14:50] LABS: OPIATE SCREEN,URINE NEGATIVE (NEGATIVE)
[2022-11-16] MEDS ORDERED: HALOPERIDOL 5 MG TABLET PO PRN (15:30)
[2022-11-16] MEDS ORDERED: LORazepam 2 MG TABLET PO PRN (15:30)
[2022-11-16] MEDS ORDERED: ZOLPIDEM TARTRATE 10 MG TABLET PO PRN (15:30)
[2022-11-16 16:02] LABS: COVID AG,FIA SOURCE NASAL SWAB
[2022-11-16 22:27] VITALS: BP 103/66; PULSE 88; RESP 18; TEMP 98; O2SAT 98
[2022-11-16] MEDS ORDERED: -PHARMACY VACCINE NOTE- MISC ONE (22:30)
[2022-11-16 22:37] LABS: GLUCOMETER DEV NAME(LOC) BV2S.
[2022-11-17 08:12] VITALS: BP 105/61; PULSE 81; RESP 18; TEMP 98.1; O2SAT 97
[2022-11-17] MEDS ORDERED: MAGNESIUM HYDROXIDE SUSPENSION 30 ML UDCUP PO PRN (08:45)
[2022-11-17] MEDS ORDERED: ACETAMINOPHEN 325 MG TABLET PO PRN (08:45)
[2022-11-17] MEDS ORDERED: ALBUTEROL SULFATE HFA 90 MCG/PUFF 8 GM INHALER IH PRN (08:45)
[2022-11-17] MEDS ORDERED: GLUCAGON,HUMAN RECOMBINANT 1 MG VIAL IM PRN (08:45)
[2022-11-17] MEDS ORDERED: LOPERAMIDE HCL 2 MG CAPSULE PO PRN (08:45)
[2022-11-17] MEDS ORDERED: DOCUSATE SODIUM 100 MG CAPSULE PO PRN (08:45)
[2022-11-17] MEDS ORDERED: MAG HYDROX/AL HYDROX/SIMETH ES 30 ML SUSPENSION UDCUP PO PRN (08:45)
[2022-11-17] MEDS ORDERED: IBUPROFEN 600 MG TABLET PO PRN (08:45)
[2022-11-17] MEDS ORDERED: PETROLATUM,WHITE 28 GM JELLY TP PRN (08:45)
[2022-11-17] MEDS ORDERED: OMEPRAZOLE 20 MG CAPSULE PO PRN (08:45)
[2022-11-17] MEDS ORDERED: CloNIDine HCL 0.1 MG TABLET PO PRN (08:45)
[2022-11-17] MEDS ORDERED: ONDANSETRON HCL 4 MG TABLET PO PRN (08:45)
[2022-11-17] MEDS ORDERED: BACITRACIN 28 GM OINTMENT TP PRN (08:45)
[2022-11-17] MEDS ORDERED: BENZOCAINE/MENTHOL LOZENGE PO PRN (08:45)
[2022-11-17] MEDS: ATORVASTATIN CALCIUM 20 MG TABLET PO SCH (09:39)
[2022-11-17] MEDS: OMEGA-3/DHA/EPA/FISH OIL 1,000 MG CAPSULE PO SCH (09:39)
[2022-11-17] MEDS: INSULIN LISPRO 100 UNITS/ML SQ PRN (11:29)
[2022-11-17] MEDS: GlipiZIDE 5 MG TABLET PO SCH (16:24)
[2022-11-17 16:27] LABS: GLUCOMETER DEV NAME(LOC) BV2S.
[2022-11-17 16:27] LABS: GLUCOMETER DEV NAME(LOC) BV2S.
[2022-11-17] MEDS: MetFORMIN HCL 500 MG TABLET PO SCH (16:55)
[2022-11-17 22:01] VITALS: BP 95/60; PULSE 73; RESP 18; TEMP 97.6; O2SAT 97
[2022-11-17 22:37] LABS: GLUCOMETER DEV NAME(LOC) BV2S.
[2022-11-18 05:56] LABS: GLUCOMETER DEV NAME(LOC) BV2S.
[2022-11-18] MEDS: GlipiZIDE 5 MG TABLET PO SCH ×2 (06:31→16:46)
[2022-11-18] MEDS: MetFORMIN HCL 500 MG TABLET PO SCH ×2 (06:31→16:46)
[2022-11-18 08:11] VITALS: BP 101/57; PULSE 80; RESP 18; TEMP 98.2; O2SAT 95
[2022-11-18 08:17] LABS: HEMOGLOBIN A1C 9.2 % (3.8-5.6)
[2022-11-18] MEDS: ATORVASTATIN CALCIUM 20 MG TABLET PO SCH (08:35)
[2022-11-18] MEDS: OMEGA-3/DHA/EPA/FISH OIL 1,000 MG CAPSULE PO SCH (08:35)
[2022-11-18 08:49] LABS: CHOL/HDL RATIO 3.4 (3.9-5.7); THYROID STIMULATING HORMONE 0.5 uIU/mL (0.36-3.74)
[2022-11-18] MEDS: INSULIN LISPRO 100 UNITS/ML SQ PRN ×2 (11:32→16:57)
[2022-11-18 12:36] LABS: GLUCOMETER DEV NAME(LOC) BV2S.
[2022-11-18 16:46] LABS: GLUCOMETER DEV NAME(LOC) BV2S.
[2022-11-18] MEDS: LURASIDONE HCL 80 MG TABLET PO SCH (16:46)
[2022-11-18 20:18] VITALS: BP 122/69; PULSE 94; RESP 18; TEMP 97.8; O2SAT 97
[2022-11-19 06:26] LABS: GLUCOMETER DEV NAME(LOC) BV2S.
[2022-11-19] MEDS: MetFORMIN HCL 500 MG TABLET PO SCH ×2 (06:34→16:56)
[2022-11-19] MEDS: GlipiZIDE 5 MG TABLET PO SCH ×2 (06:34→16:44)
[2022-11-19 06:46] LABS: GLUCOMETER DEV NAME(LOC) BV2S.
[2022-11-19] MEDS: ATORVASTATIN CALCIUM 20 MG TABLET PO SCH (08:11)
[2022-11-19] MEDS: OMEGA-3/DHA/EPA/FISH OIL 1,000 MG CAPSULE PO SCH (08:12)
[2022-11-19 08:23] VITALS: BP 109/71; PULSE 83; RESP 18; TEMP 98; O2SAT 100
[2022-11-19] MEDS: INSULIN LISPRO 100 UNITS/ML SQ PRN ×2 (11:13→16:58)
[2022-11-19 11:21] LABS: GLUCOMETER DEV NAME(LOC) BV2S.
[2022-11-19 16:40] LABS: GLUCOMETER DEV NAME(LOC) BV2S.
[2022-11-19] MEDS: LURASIDONE HCL 80 MG TABLET PO SCH (16:56)
[2022-11-19 20:41] LABS: GLUCOMETER DEV NAME(LOC) BV2S.
[2022-11-20 02:11] VITALS: RESP 17
[2022-11-20] MEDS: MetFORMIN HCL 500 MG TABLET PO SCH ×2 (06:15→16:51)
[2022-11-20] MEDS: GlipiZIDE 5 MG TABLET PO SCH ×2 (06:15→16:43)
[2022-11-20 06:16] LABS: GLUCOMETER DEV NAME(LOC) BV2S.
[2022-11-20 09:00] VITALS: BP 101/76; PULSE 63; RESP 18; TEMP 97.8; O2SAT 99
[2022-11-20] MEDS: OMEGA-3/DHA/EPA/FISH OIL 1,000 MG CAPSULE PO SCH (09:12)
[2022-11-20] MEDS: ATORVASTATIN CALCIUM 20 MG TABLET PO SCH (09:12)
[2022-11-20 13:26] LABS: GLUCOMETER DEV NAME(LOC) BV2S.
[2022-11-20] MEDS: LURASIDONE HCL 80 MG TABLET PO SCH (16:50)
[2022-11-20] MEDS: INSULIN LISPRO 100 UNITS/ML SQ PRN ×2 (16:57→22:49)
[2022-11-20 19:41] LABS: GLUCOMETER DEV NAME(LOC) BV2S.
[2022-11-20 22:22] LABS: GLUCOMETER DEV NAME(LOC) BV2S.
[2022-11-20 22:28] VITALS: BP 109/62; PULSE 83; RESP 18; TEMP 98.3; O2SAT 96
[2022-11-21] MEDS: GlipiZIDE 5 MG TABLET PO SCH ×2 (06:50→16:40)
[2022-11-21] MEDS: MetFORMIN HCL 500 MG TABLET PO SCH ×2 (06:50→17:04)
[2022-11-21 07:51] LABS: GLUCOMETER DEV NAME(LOC) BV2S.
[2022-11-21 09:34] VITALS: BP 111/73; PULSE 92; RESP 18; TEMP 97.4; O2SAT 96
[2022-11-21] MEDS: OMEGA-3/DHA/EPA/FISH OIL 1,000 MG CAPSULE PO SCH (09:35)
[2022-11-21] MEDS: ATORVASTATIN CALCIUM 20 MG TABLET PO SCH (09:35)
[2022-11-21 11:21] LABS: GLUCOMETER DEV NAME(LOC) BV2S.
[2022-11-21] MEDS: INSULIN LISPRO 100 UNITS/ML SQ PRN ×2 (11:25→21:06)
[2022-11-21 16:56] LABS: GLUCOMETER DEV NAME(LOC) BV2S.
[2022-11-21] MEDS: LURASIDONE HCL 80 MG TABLET PO SCH (17:04)
[2022-11-21 20:15] VITALS: BP 114/66; PULSE 90; RESP 20; TEMP 97.7; O2SAT 98
[2022-11-21 21:06] LABS: GLUCOMETER DEV NAME(LOC) BV2S.
[2022-11-22 06:21] LABS: GLUCOMETER DEV NAME(LOC) BV2S.
[2022-11-22] MEDS: GlipiZIDE 5 MG TABLET PO SCH ×2 (06:53→16:30)
[2022-11-22] MEDS: MetFORMIN HCL 500 MG TABLET PO SCH ×2 (06:56→17:16)
[2022-11-22] MEDS: INSULIN LISPRO 100 UNITS/ML SQ PRN ×3 (06:58→16:34)
[2022-11-22 08:29] VITALS: BP 102/59; PULSE 73; RESP 17; TEMP 97.5; O2SAT 98
[2022-11-22] MEDS: OMEGA-3/DHA/EPA/FISH OIL 1,000 MG CAPSULE PO SCH (08:34)
[2022-11-22] MEDS: ATORVASTATIN CALCIUM 20 MG TABLET PO SCH (08:34)
[2022-11-22 11:26] LABS: GLUCOMETER DEV NAME(LOC) BV2S.
[2022-11-22 16:31] LABS: GLUCOMETER DEV NAME(LOC) BV2S.
[2022-11-22] MEDS: LURASIDONE HCL 80 MG TABLET PO SCH (17:16)
[2022-11-22 20:28] VITALS: BP 111/70; PULSE 84; RESP 18; TEMP 98.4; O2SAT 98
[2022-11-22 20:36] LABS: GLUCOMETER DEV NAME(LOC) BV2S.
[2022-11-23 06:16] LABS: GLUCOMETER DEV NAME(LOC) BV2S.
[2022-11-23] MEDS: MetFORMIN HCL 500 MG TABLET PO SCH ×2 (06:35→16:35)
[2022-11-23] MEDS: GlipiZIDE 5 MG TABLET PO SCH ×2 (06:35→16:35)
[2022-11-23] MEDS: INSULIN LISPRO 100 UNITS/ML SQ PRN ×2 (06:36→11:48)
[2022-11-23 08:11] VITALS: BP 100/66; PULSE 89; RESP 18; TEMP 97.8; O2SAT 98
[2022-11-23] MEDS: ATORVASTATIN CALCIUM 20 MG TABLET PO SCH (08:26)
[2022-11-23] MEDS: OMEGA-3/DHA/EPA/FISH OIL 1,000 MG CAPSULE PO SCH (08:26)
[2022-11-23 11:26] LABS: GLUCOMETER DEV NAME(LOC) BV2S.
[2022-11-23] MEDS: LURASIDONE HCL 80 MG TABLET PO SCH (16:35)
[2022-11-23 16:50] LABS: GLUCOMETER DEV NAME(LOC) BV2S.
[2022-11-23 20:16] VITALS: BP 105/66; PULSE 95; RESP 19; TEMP 98.3; O2SAT 94
[2022-11-23 20:21] LABS: GLUCOMETER DEV NAME(LOC) BV2S.
[2022-11-24 06:11] LABS: GLUCOMETER DEV NAME(LOC) BV2S.
[2022-11-24] MEDS: MetFORMIN HCL 500 MG TABLET PO SCH (06:42)
[2022-11-24] MEDS: GlipiZIDE 5 MG TABLET PO SCH (06:42)
[2022-11-24] MEDS: INSULIN LISPRO 100 UNITS/ML SQ PRN (06:43)
[2022-11-24 08:25] VITALS: BP 137/60; PULSE 87; RESP 18; TEMP 97.3; O2SAT 100
[2022-11-24] MEDS: ATORVASTATIN CALCIUM 20 MG TABLET PO SCH (09:16)
[2022-11-24] MEDS: OMEGA-3/DHA/EPA/FISH OIL 1,000 MG CAPSULE PO SCH (09:16)
[2022-11-24] MEDS ORDERED: LURA80TA2 PO (13:29)
[2022-11-24] MEDS ORDERED: LURA80TA4 PO (14:54)
== END 2022-11-24 14:30 | disposition home or self-care (01) | DRG 750 ==
LOC: EMS 13:10 → B2S 20:00
PROVIDERS: ADMIT Psychiatry & Neurology Psychiatry; ATTEND Psychiatry & Neurology Psychiatry
DX: F25.9 Schizoaffective disorder, unspecified (principal); R45.851 Suicidal ideations; I10 Essential (primary) hypertension; E11.65 Type 2 diabetes mellitus with hyperglycemia; E78.00 Pure hypercholesterolemia, unspecified; F41.9 Anxiety disorder, unspecified; G47.00 Insomnia, unspecified; F17.290 Nicotine dependence, other tobacco product, uncomplicated; K59.00 Constipation, unspecified; F19.10 Other psychoactive substance abuse, uncomplicated; Z20.822 Contact with and (suspected) exposure to COVID-19; F32.A Depression, unspecified
CPT/HCPCS: 80053; 80061; 80307; 82962; 83036; 84443; 85025; 99285; G0480; Q0162